=== PATIENT | female | born 1950 | race Caucasian/White ===

== ENCOUNTER 2018-02-28 12:01 | Inpatient (IN) | payer MEDICARE ==
[~2018-02-28] VITALS: Ht 157.5 cm; Wt 106.0 kg
--- NOTE | ~2018-02-28 | HEMODYNAMI ---
PATIENT:MONICO CHAPMAN MEDICAL RECORD: [id number] : [birth year] [facility]D. D.2125 [id number] ADMISSION DATE: 02/28/18 Generatedon:03/03/201810:49 Patient name: MONICO CHAPMAN Patient #: [id number] SSN: : 1950 Date of study: 03/03/2018 Page: Of Hemodynamic Procedure Report Patient Data Patient Demographics Procedure consent was obtained First Name: MONICO Gender: Female Last Name: ADELA : 1950 Middle Initial: CINDY Age: 67 year(s) Patient #: [id number] Race: Unknown Additional ID: [id number] Contact details Address: [address] [place] [address] [address] State: [place] City: [facility] Zip code: [address] Past Medical History Allergies Allergen Reaction Date Comments Reported Other allergy 03/01/2018 codeine Other allergy 03/03/2018 codeine Admission Admission Data Admission Date: 02/28/2018 Admission Time: 12:01 Room #: D.2125 Lab Results Lab Result Date: 03/01/2018 Lab Result Time: 13:00 Biochemistry Name Units Result Min Max BUN mg/dl 23 --(----)-* 7 18 Creatinine mg/dl 0.9 --(-*--)-- 0.6 1.3 CBC Name Units Result Min Max Hematocrit % 40.5 -*(----)-- 42 54 Hemoglobin g/dl 13.3 -*(----)-- 13.5 17.5 Procedure Procedure Types Cath Procedure Diagnostic Procedure Sedation Charges Moderate Sedation up to 15 minutes PCI Procedure Coronary Stent Coronary Stent Initial Procedure Description Procedure Date Procedure Date: 03/03/2018 Procedure Start Time: 10:18 Procedure End Time: 10:47 Procedure Staff Name Function Wilmer Crabtree MD Performing Physician Kenyetta Blanco RT Monitor Delon Quinonez RT Scrub Gordo Gutierrez RN Nurse Jewels Young RN Nurse Hussein Buitrago RT Basket Hand Weaver Procedure Data Cath Procedure Fluoroscopy Diagnostic fluoroscopy Total fluoroscopy Time: 3.8 time: 3.8 min min Diagnostic fluoroscopy Total fluoroscopy dose: dose: 1078 mGy 1078 mGy Contrast Material Contrast Material Type Amount (ml) Isovue 300 93 Entry Location Entry Primary Successful Side Size Upsize Upsize Entry Closure Succes sful Closure Location (Fr) 1 (Fr) 2 (Fr) Remarks Device Remarks Femoral Right 6 Fr Exoseal artery Short Estimated blood loss: 10 ml Procedure Complications No complications Procedure Medications Medication Administration Route Dosage 0.9% NaCl I.V. 100 ml/hr Oxygen etCO2 Nasal cannula 2 l/min Lidocaine 2% added to field 20 Heparin Flush Bag added to field 2 bags (1000units/500ml NS) Versed I.V. 2 mg Fentanyl I.V. 100 mcg Heparin Bolus I.V. 70966 units Versed I.V. 1 mg Fentanyl I.V. 25 mcg Nitroglycerin IC/IA I.C. 100 mcg Hemodynamics Rest HGB: 13.3 (g/dl) Heart Rate: 64 (bpm) Snapshots Pre Cath Intra NCS Post Cath Vital Signs Time Heart Resp SPO2 etCO2 NIBP (mmHg) Rhythm Pain Sedation Rate (ipm) (%) (mmHg) Status Level (bpm) 9:56:12 64 12 94 45.9 186/74(146) NSR 0 (11) 10(A) , No pain 10:01:11 61 19 99 41.4 191/74(131) NSR 0 (11) 10(A) , No pain 10:06:06 57 13 98 41.4 162/69(127) NSR 0 (11) 10(A) , No pain 10:10:57 57 13 97 39.8 159/70(120) NSR 0 (11) 10(A) , No pain 10:15:46 58 11 95 40.6 161/68(117) NSR 0 (11) 10(A) , No pain 10:20:37 58 11 95 39.9 157/66(100) NSR 0 (11) 10(A) , No pain 10:25:13 58 9 97 40.2 142/65(104) NSR 0 (11) 10(A) , No pain 10:29:54 59 10 98 33 141/71(106) NSR 0 (11) 10(A) , No pain 10:34:34 61 11 98 33.4 143/68(102) NSR 0 (11) 10(A) , No pain 10:39:17 62 11 99 33.1 126/58(96) NSR 0 (11) 10(A) , No pain 10:43:54 62 12 99 37.6 133/62(96) NSR 0 (11) 10(A) , No pain 10:48:30 59 20 97 37.6 127/61(95) NSR 0 (11) 10(A) , No pain Medications Time Medication Route Dose Verified Delivered Reason Notes Effectiveness by by 10:01:06 0.9% NaCl I.V. 100 Wilmer Jewels used for ml/hr Bro Young industrial commercial groundskeeper 10:01:13 Oxygen etCO2 2 Wilmer Jewels used for Nasal l/min Bro Young procedure cannula RN 10:01:20 Lidocaine 2% added 20ml Wilmer Wilmer for local to vial Bro Crabtree MD anesthetic field 10:01:27 Heparin Flush added 2 Wilmer Wilmer used for Bag to bags Bro Crabtree MD procedure (1000units/500ml field NS) 10:16:11 Versed I.V. 2 mg Wilmer Jewels for sedation Bro Young RN 10:16:19 Fentanyl I.V. 100 Wilmer Jewels for sedation mcg Bro Young RN 10:23:39 Heparin Bolus I.V. 31201 Wilmer Jewels for units Bro Young anticoagulation RN 10:31:27 Versed I.V. 1 mg Wilmer Jewels for sedation Bro oYung RN 10:31:33 Fentanyl I.V. 25 Wilmer Jewels for sedation mcg Bro Young RN 10:36:35 Nitroglycerin I.C. 100 Wilmer Wilmer for IC/IA mcg Bro Crabtree MD vasodilation Procedure Log Time Note 9:17:42 Signed procedure consent form obtained from patient. 9:17:45 Diagnostic Cath status Elective 9:17:47 Time tracking: Regular hours (M-F 7:00 - 5:00) 9:17:50 Plan of Care:Hemodynamics will remain stable., Cardiac rhythm will remain stable., Comfort level will be maintained., Respiratory function will remain adequate., Patient/ family verbilizes understanding of procedure., Procedure tolerated without complication., Recovers from procedure without complications.. 9:39:47 Hussein Buitrago RT(R) sent for patient. Start room use. 9:39:57 H&P Date Dictated: 02/28/2018 Within 30 days and on chart.. 9:46:23 Patient received from Med II to CCL 1 Alert and oriented. Tansferred to table in Supine position. 9:46:25 Warm blankets applied, and navid hugger turned on for patient comfort. 9:46:27 Correct patient and procedure confirmed by team. 9:46:28 ECG and BP/O2 sat monitors applied to patient. 9:46:30 Pre-procedure instructions explained to patient. 9:46:31 Pre-op teaching completed and patient verbalized understanding. 9:46:32 Family in patients room. 9:46:34 Patient NPO since Midnight. 9:46:48 Patient allergic to Other allergycodeine 9:46:50 Is the patient allergic to Iodine/contrast media? No. 9:46:51 Is patient on blood thinner?Yes 9:47:50 ACC The patient was administered the following blood thiners within the last 24 hours: ACCPlavix 9:47:52 Patient diabetic? Yes. 9:49:00 If diabetic: On Metformin? No 9:49:07 Previous problem with sedation/anesthesia? No ? 9:49:09 Snore? Yes 9:49:10 Sleep apnea? No 9:49:11 Deviated septum? No 9:49:11 Opens mouth fully? Yes 9:49:12 Sticks out tongue? Yes 9:49:17 Airway obstruction? Yes ASTHMA 9:49:21 Dentures? No ? 9:54:22 Vital chart was started 9:55:56 Baseline sample Acquired. 9:56:02 Rhythm: sinus rhythm 9:56:04 Full Disclosure recording started 10:01:06 0.9% NaCl 100 ml/hr I.V. was administered by Jewels Young RN; used for procedure; 10:01:13 Oxygen 2 l/min etCO2 Nasal cannula was administered by Jewels Young RN; used for procedure; 10:01:20 Lidocaine 2% 20ml vial added to field was administered by Wilmer Crabtree MD; for local anesthetic; 10:01:27 Heparin Flush Bag (1000units/500ml NS) 2 bags added to field was administered by Wilmer Crabtree MD; used for procedure; 10:02:48 Pre procedure: right dorsailis pedis pulse 2+ Normal; easily identifiable; not easily obliterated 10:02:51 Patient pain scale 0/10 ?. 10:02:55 IV patent on arrival in right hand with 0.9% NaCl at [facility]. 10:03:55 Right groin area was prepped with chlora-prep and draped in sterile fashion 10:03:56 Alarms reviewed by R. N. 10:03:56 Sharps counted by scrub and verified by R.N. 10:04:27 Use device set CATH PACK 10:04:29 ACIST Syringe (26164) opened to sterile field. 10:04:29 ACIST Hand Control (90995) opened to sterile field. 10:04:30 ACIST Manifold (62647) opened to sterile field. 10:04:30 Medline Cath Pack ([id number]) opened to sterile field. 10:04:30 Bag Decanter (2002S) opened to sterile field. 10:04:31 DIAGNOSTIC WIRE .035 260cm J wire (372492) opened to sterile field. 10:05:01 SHEATH 6FR Burton (PTU066) opened to sterile field. 10:05:02 INFLATOR Merit BasixCompak (SB0209) opened to sterile field. 10:05:02 TUBING High Pressure Extension Tubing (Bro) ([id number]) opened to sterile field. 10:05:03 BMW 300cm Straight Dodge 2 wire (9327193) opened to sterile field. 10:13:19 Zero performed for pressure channel P1 10:15:32 --------ALL STOP TIME OUT------ 10:15:32 Final Timeout: patient, procedure, and site verified with staff and physician. All members of the team are in agreement. 10:15:34 Right groin site verified by team. 10:15:37 Physical assessment completed. ASA score P 2 - A patient with mild systemic disease as per Wilmer Crabtree MD. 10:15:40 Sedation plan: IV Moderate Sedation Medication:Versed, Fentanyl 10:16:11 Versed 2 mg I.V. was administered by Jewels Hector RN; for sedation; 10:16:19 Fentanyl 100 mcg I.V. was administered by Jewels Young RN; for sedation; 10:18:01 Zero performed for pressure channel P1 10:18:18 Lab results completed and on chart. 10:18:21 Procedure started. 10:18:55 Local anesthetic to right femoral artery with Lidocaine 2% by Wilmer Crabtree MD.INITIAL ACCESS ONLY 10:20:24 A 6 Fr Short sheath was inserted into the Right Femoral artery 10:21:12 6 Fr XBLAD 3.5 guide catheter was inserted over the wire 10:23:39 Heparin Bolus 95180 units I.V. was administered by Jewels Young RN; for anticoagulation; 10:24:22 BMW 300 wire advanced. 10:27:38 Wire advanced across lesion. 10:31:27 Versed 1 mg I.V. was administered by Jewels Young RN; for sedation; 10:31:33 Fentanyl 25 mcg I.V. was administered by Jewels Young RN; for sedation; 10:32:13 Place stent Inflation Number: 1 A PAM RX 3.0 x 15 stent ([id number]) was prepped and advanced across the Prox CX. The stent was deployed at 16 CRISTELA for 0:10 (min:sec). 10:32:50 Stent catheter was removed intact over wire. 10:36:35 Nitroglycerin IC/IA 100 mcg I.C. was administered by Wilmer Crabtree MD; for vasodilation; 10:41:26 Place stent Inflation Number: 2 A PAM OTW 3.0 x 22 stent ([id number]) was prepped and advanced across the Prox CX. The stent was deployed at 16 CRISTELA for 0:10 (min:sec). 10:41:49 Stent catheter was removed intact over wire. 10:41:50 Wire removed. 10:41:50 Guide catheter removed. 10:42:30 EXOSEAL 6Fr (EX600) opened to sterile field. 10:43:46 Sheath removed intact; hemostasis achieved with Exoseal to the Right Femoral artery. 10:44:02 Procedure ended.(Physican Out) 10:44:18 Fluoroscopy time 03.80 minutes. :44:22 Flurop Dose total: 1078 10:: Fluoroscopy dose: 1078 mGy 10:: Contrast amount:Isovue 300 93ml. 10:44:28 Sharps counted by scrub and verified by R.N. 10:44:32 Post-op/insertion site Right Femoral artery dressed using a 4 x 4 and Tegaderm. 10:44:36 Post right femoral artery:stable, soft, clean and dry 10:44:44 Post-procedure physical assessment completed. ASA score P 2 - A patient with mild systemic disease as per Wilmer Crabtree MD. 10:44:47 Post procedure rhythm: unchanged. 10:44:49 Estimated blood loss: 10 ml 10:44:50 Post procedure instruction explained to patient.Patient verbalizes understanding. 10:44:50 Patient needs reinforcement of post procedure teaching. 10:45:20 Procedure type changed to Cath procedure, Diagnostic procedure, Sedation Charges, Moderate Sedation up to 15 minutes, PCI procedure, Coronary Stent, Coronary Stent Initial 10:47:13 Procedure and supply charges have been captured, reviewed, submitted and are correct. 10:47:15 Procedure Complication : No complications 10:47:18 Vital chart was stopped 10:47:18 See physician's report for complete and final results. 10:47:25 Report given to PCU. 10:47:28 Patient transfered to PCU with Bed. 10:47:30 Procedure ended. 10:47:30 Full Disclosure recording stopped 10:47:36 End room use (Document Last) Intervention Summary Intervention Notes Time ActionType Lesion and Equipment Used Action# Pressure Duration Attributes 10:32:13 Place stent Prox CX PAM RX 3.0 x 1 16 00:10 15 stent ([id number]) 10:41:26 Place stent Prox CX PAM OTW 3.0 x 2 16 00:10 22 stent ([id number]) Device Usage Item Name Manufacture Quantity Catalog Hospital Part [facility] Lot# / Number Charge Number Stock Stock Serial# Code ACIST Syringe Acist 1 89095 120451 309706 430915 20 (86689) Medical Systems Inc ACIST Hand Acist 1 79831 696507 180838 845289 5 Control Medical (77056) Systems Inc ACIST Manifold Acist 1 84633 938965 719901 805561 5 (91096) Medical Systems Inc Medline Cath Cardinal 1 [id number] 340113 30704 528017 5 Styloola ([id number]) Bag Decanter Microtek 1 2001S 909432 66118 640512 5 () Medical Inc. DIAGNOSTIC [facility] [place] 1 561416 146706 815851 246176 30 WIRE .035 260cm J wire (439071) SHEATH 6FR Terumo 1 HCJ515 823266 664071 233588 40 Burton (WUQ924) INFLATOR Merit Merit 1 XP4527 733485 402202 210674 15 BasixCompak Medical (KI4116) TUBING High Merit 1 [id number] 904890 00776 593496 10 Pressure Medical Extension Tubing (Crabtree) ([id number]) BMW 300cm Chavez 1 2336679 939950 202809 243767 5 Straight Vascular Dodge 2 wire (7435900) PAM RX 3.0 x Medtronic 1 [id number] 425397 0655578 486610 5 [id number] 15 stent ([id number]) PAM OTW 3.0 x Medtronic 1 [id number] 032567 7401701 352416 5 [id number] 22 stent ([id number]) EXOSEAL 6Fr Cardinal 1 EX600 676089 876154 534048 10 (EX600) Health Signature Audit [place] Stage Time Signature Unsigned Intra-Procedure 03/03/2018 Kenyetta Blanco 10:49:02 AM RT(R) Signatures Monitor : Kenyetta Blanco Signature : RT Date : Time : [address] [place] [address]
--- NOTE | ~2018-02-28 | MORECARE ---
CASE MANAGEMENT DISCHARGE SUMMARY PATIENT: MONICO CHAPMAN UNIT: [id number] ADM DATE: 02/28/18 AGE: 67 : [birth year] SEX: F ROOM/BED: D.7835 AUTHOR: REBECCA FRANCIS PHYSICIAN: REFERRING PHYSICIAN: TOLU MELGOZA MD DATE OF SERVICE: 03/07/18 Discharge Plan Patient Name: MONICO CHAPMAN [facility]:[place] : 1950 Planned Disposition: Home Anticipated Discharge Date: 03/04/18 Discharge Date: 03/04/2018 Expected LOS: 4 Initial Reviewer: [id number] Initial Review Date: 02/28/2018 Generated: 03/07/18 9:49 am Comments DCP- Discharge Planning Updated by [email or web address]: Monty Hall on 03/03/18 8:[address] Patient Name: MONICO CHAPMAN Encounter No: [id number] : 1950 Primary Insurance: [facility] [employer] Anticipated DC Date: 03-03-2018 Planned Disposition: Home DISCHARGE PLANNING COMMENTS: * Is the patient Alert and Oriented? Yes 0 * How many steps to enter\exit or inside your home? 4 0 * PCP OK 0 * [facility]acy [facility] * Preadmission Environment Home with Family 0 * ADLs Independent 0 * Equipment Glucometer 0 * Other Equipment NO MEDICAL EQUIPMENT PROVIDER PREFERENCE 0 * List name and contact numbers for known caregivers / representatives who currently or will assist patient after discharge: SAWYER CHAPMAN, SPOUSE, 0 * Verbal permission to speak to the caregivers and representatives has been obtained from the patient. Yes 0 * Community resources currently utilized None 0 * Please name any agencies selected above. NONE 0 * Additional services required to return to the preadmission environment? No 0 * Can the patient safely return to the preadmission environment? Yes 0 * Has this patient been hospitalized within the prior 30 days at any hospital? No 0 CM MET WITH PT AND SPOUSE IN ROOM TO DISCUSS DISCHARGE PLANNING AND NEEDS. MONICO CHAPMAN provided verbal consent to discuss current and ongoing needs with/in the presence of: SPOUSE, SAWYER. PT REPORTS LIVING AT HOME INDEPENDENTLY WITH SPOUSE. PT HAS GLUCOMETER WITH NO MEDICAL EQUIPMENT PROVIDER PREFERENCE. PT HAS NO OUTSIDE SERVICES ASSISTING IN THE HOME. CM DISCUSSED AVAILABILITY OF HOME HEALTH, REHAB SERVICES AND MEDICAL EQUIPMENT. PT DENIES DISCHARGE NEEDS, REPORTS HER SPOUSE WILL PICK HER UP FOR DISCHARGE HOME. IMPORTANT MESSAGE FROM MEDICARE PROVIDED AND EXPLAINED. PT PLANS TO DISCHARGE HOME WITH SPOUSE, DENIES CURRENT NEEDS. CM TO FOLLOW AND ASSIST IF NEEDED. Monty Hall, CASE MANGEMENT DCPIA - Discharge Planning Initial Assessment Updated by [email or web address]: Monty Hall on 03/03/18 9:51 am * Is the patient Alert and Oriented? Yes * How many steps to enter\exit or inside your home? * PCP OK * Pharmacy [address] * Preadmission Environment Home with Family * ADLs Independent * Equipment Glucometer * Other Equipment NO MEDICAL EQUIPMENT PROVIDER PREFERENCE * List name and contact numbers for known caregivers / representatives who currently or will assist patient after discharge: SAWYER CHAPMAN, SPOUSE, * Verbal permission to speak to the caregivers and representatives has been obtained from the patient. Yes * Community resources currently utilized None * Please name any agencies selected above. NONE * Additional services required to return to the preadmission environment? No * Can the patient safely return to the preadmission environment? Yes * Has this patient been hospitalized within the prior 30 days at any hospital? No Coverage Notice Reviewer: [id number] - Monty Hall Notice Issued Date-Time: 03/03/2018 8:35 Notice Type: IM Discharge Notice Notice Delivered To: Family Member Relationship to Patient: Spouse Territory Supervisor Name: SAWYER CHAPMAN Delivery Method: HAND - Hand Delivered Rekha Days: Prior Verbal Notification: Recipient Understood Notice: Yes Recipient Signature: Yes Med Rec Note Co-signed by Attending: Coverage Notice Comment: Last DP export: 03/03/18 8:56 Patient Name: MONICO CHAPMAN Page 00023 at 0849 All edits/amendments must be made on the electronic document DICTATION DATE: 03/07/18848 L TACKER: JERO 03/07/18848 RPT#: [id number] DC DATE:03/04/18 STATUS: DIS IN [facility] [address] [place] [address] END OF REPORT
--- NOTE | ~2018-02-28 | HP ---
PATIENT: MONICO CHAPMAN MEDICAL RECORD: [id number] ACCOUNT: [id number] LOCATION:[address] : [birth year] ADMISSION DATE: 02/28/18 PCP: TIMOTHY EUCEDA MD HISTORY AND PHYSICAL EXAMINATION REASON FOR ADMISSION: Jaw and chest pain. HISTORY OF PRESENT ILLNESS: The patient is a 67-year-old female with metabolic syndrome who states that over the weekend, she developed onset of bilateral jaw pain. Initially thought it might be her teeth, but it was in both mandibular areas and radiated into her chest. It would come and go with activity or at rest. She talked to her dentist and he could not see, but told her to take ibuprofen, which really did not help that much. She has been more fatigued, more short of breath with walking. For this reason, she came to the office today for evaluation. She had a normal cardiac catheterization by Dr. Martin on 01/11/2012 through the right radial approach. She has, however, had poorly controlled diabetes and obesity. She denies any recent dyspepsia. Her A1c runs over 8. She has had increasing edema of her ankles and feet over the weekend, and mild dyspnea on exertion. PAST MEDICAL HISTORY: AODM, poorly controlled; exogenous obesity; hypertension; hyperlipidemia; chest pain, normal cardiac catheterization in 2010; diabetic neuropathy; osteoarthritis; depression; superficial corneal ulcer, resolved; GERD; thyroid cyst, benign. PAST SURGICAL HISTORY: She had a right thyroid lobe cyst removed in 1979, was benign. ALLERGIES: ACTOS, CODEINE, DURAMORPH, NORCO, AND OXYCODONE. FAMILY HISTORY: Father , had hypertension, diabetes, and CVA. Mother at 64 of lung cancer. One sister of diabetes complications. SOCIAL HISTORY: Not a current smoker, does not drink alcohol. MEDICATIONS: Toujeo 6 units subQ q.h.s., glimepiride 2 mg p.o. q.a.m., lisinopril 20 mg p.o. daily, Cartia XT 240 mg p.o. daily, metformin 1000 mg p.o. b.i.d., methocarbamol 5 mg p.o. 3 times a day p.r.n. low back pain, fenofibrate 160 mg p.o. daily, Bumex 1 mg p.o. 2 tabs b.i.d., paroxetine 20 mg a day, atorvastatin 10 mg at bedtime, gabapentin 300 mg p.o. t.i.d., nystatin topical powder applied t.i.d. to groin rash. REVIEW OF SYSTEMS: GENERAL: More fatigued recently. Denies fever, has had some weight gain over the weekend, she thinks due to edema. HEENT: No recent new visual change, sinus congestion, sore throat, headache or loss of vision. RESPIRATORY: Mild exertional dyspnea on exertion. Denies cough or sputum production. Denies PND. CARDIAC: No PND. Mild orthopnea. Increasing edema of her ankles and feet over the weekend. Has had atypical jaw pain bilaterally that radiates into her anterior chest, and will gradually ease off. GASTROINTESTINAL: No nausea, vomiting, change in stools or blood per rectum. GENITOURINARY: Has mild GERD. ENDOCRINE: Denies polyuria, polydipsia, heat or cold intolerance. HISTORY AND PHYSICAL [id number] NEIGHBORS,MONICO WHITE NEUROLOGIC: No history of stroke, TIA, or vascular headaches. INTEGUMENT: No rash or itching. PSYCHIATRIC: Admits to depressed mood, but not severe and she is not suicidal. PHYSICAL EXAMINATION: VITAL SIGNS: The patient is afebrile with temperature of 99 degrees Fahrenheit orally, her weight is 226 pounds, height is 60 inches, BMI is 44.1, blood pressure 122/62 with a heart rate 70 and regular. HEENT: Normocephalic. Eyes are clear. Pupils are reactive. NECK: No bruits or JVD. Her mandible is nontender to touch throughout. No TMJ symptoms noted. No mass in the neck or bruits. CHEST: Distant breath sounds without wheeze or rales. HEART: Regular rate and rhythm without murmur. ABDOMEN: Obese, soft, nontender. No organomegaly noted. GYNECOLOGIC: Deferred. EXTREMITIES: She has 2+ bipedal and pretibial edema to the mid calf bilaterally. SKIN: Shows no lesions. She did step on a tack, she says, in the bottom of her left great plantar distal MTP area, there is a puncture wound without signs of infection. IMAGING: EKG showed sinus rhythm with poor anterior R waves changed from prior. Chest x-ray showed borderline cardiomegaly, no infiltrate. ASSESSMENT: 1. Atypical jaw and chest pain suggesting angina. 2. Metabolic syndrome, poorly controlled. 3. Morbid obesity. 4. GERD. 5. Hypertension. 6. Hyperlipidemia. 7. History of negative cardiac catheterization in 2009. 8. Increased peripheral edema. PLAN: We will admit, place on telemetry. Check echo to evaluate EF. Serial cardiac enzymes. Cardiology consult. TRANSINT:[id number] Voice Confirmation ID: [id number] DOCUMENT ID: [id number] TOLU MELGOZA MD at 0738 CC: [id number] DICTATION DATE: 02/28/18 1328 IT TECHNICAL SUPPORT SPECIALIST: 02/28/18 1429 DIS IN 03/04/18 [id number] [place] [address]
--- NOTE | ~2018-02-28 | HEMODYNAMI ---
PATIENT:MONICO CHAPMAN MEDICAL RECORD: [id number] : 48 [facility] [id number] ADMISSION DATE: 02/28/18 Generatedon:03/01/201815:47 Patient name: MONICO CHAPMAN Patient #: [id number] SSN: : 1950 Date of study: 03/01/2018 Page: Of Hemodynamic Procedure Report Patient Data Patient Demographics Procedure consent was obtained First Name: MONICO Gender: Female Last Name: ADELA : 1950 Middle Initial: CINDY Age: 67 year(s) Patient #: [id number] Race: Unknown Additional ID: [id number] Contact details Address: [address] [place] [address] [address] State: [place] City: [facility] Zip code: [address] Past Medical History Allergies Allergen Reaction Date Comments Reported Other allergy 03/01/2018 codeine Admission Admission Data Admission Date: 02/28/2018 Admission Time: 12:01 Room #: D.2125 Lab Results Lab Result Date: 03/01/2018 Lab Result Time: 13:00 Biochemistry Name Units Result Min Max BUN mg/dl 23 --(----)-* 7 18 Creatinine mg/dl 0.9 --(-*--)-- 0.6 1.3 CBC Name Units Result Min Max Hematocrit % 40.5 -*(----)-- 42 54 Hemoglobin g/dl 13.3 -*(----)-- 13.5 17.5 Procedure Procedure Types Cath Procedure Diagnostic Procedure LHC LHC w/Coronaries Sedation Charges Moderate Sedation up to 30 minutes PCI Procedure Coronary Stent Coronary Stent Initial Procedure Description Procedure Date Procedure Date: 03/01/2018 Procedure Start Time: 15:04 Procedure End Time: 15:44 Procedure Staff Name Function Wilmer Crabtree MD Performing Physician Delon Quinonez RT Monitor Vicky Jaramillo RT Scrub Ty Navarrete RT Freight Traffic Consultant Procedure Data Cath Procedure Fluoroscopy Diagnostic fluoroscopy Total fluoroscopy Time: 8.7 time: 8.7 min min Diagnostic fluoroscopy Total fluoroscopy dose: dose: 699.37 mGy 699.37 mGy Contrast Material Contrast Material Type Amount (ml) Isovue 300 166 Entry Location Entry Primary Successful Side Size Upsize Upsize Entry Closure Nice ccessful Closure Location (Fr) 1 (Fr) 2 (Fr) Remarks Device Remarks Radial Right 6 Fr Mechanical artery Short Compression Diagnostic catheters Device Type Used For End Catheter Placement DIAGNOSTIC Safford 110cm 5 Procedure Fr catheter ([id number]) DIAGNOSTIC Pigtail 5Fr Procedure catheter ([id number]) Procedure Complications No complications Procedure Medications Medication Administration Route Dosage Oxygen etCO2 Nasal cannula 2 l/min Heparin Flush Bag added to field 2 bags (1000units/500ml NS) 0.9% NaCl I.V. 100 ml/hr Radial Cocktail added to field 1 syringe (Verapomil 2mg/Nitro 400mcg/Heparin 1500units) Fentanyl I.V. 50 mcg Versed I.V. 1 mg Radial Cocktail I.A. 1 syringe (Verapomil 2mg/Nitro 400mcg/Heparin 1500units) Fentanyl I.V. 50 mcg Versed I.V. 1 mg Heparin Bolus I.V. 25744 units Nitroglycerin IC/IA I.C. 100 mcg Nitroglycerin IC/IA I.C. 100 mcg Plavix P.O. 600 mg Fentanyl I.V. 50 mcg Fentanyl I.V. 50 mcg Hemodynamics Rest HGB: 13.3 (g/dl) Heart Rate: 58 (bpm) Pressure Samples Time Site Value (mmHg) Purpose Heart Use Rate(bpm) 15:08 LV 134/9,22 Snapshot 54 15:08 AO 109/50(71) Pullback 74 15:08 LV 112/6,13 Pullback 74 15:14 AO 145/59(92) Pullback 63 15:14 LV 141/3,13 Pullback 63 Gradients Valve Time Site 1 Site 2 Mean SEP/DFP Peak To Heart Use (mmHg) (sec/min) Peak Rate (mmHg) (bpm) Aortic 15:08 LV AO 21 9 3 74 112/6,13 109/50(71) Aortic 15:14 LV AO 0 5 0 63 141/3,13 145/59(92) Calculations Valve P-P Mean Valve Index Valve Source Name Gradient Area Flow (cm2) Aortic 0 0 0 0 Snapshots Pre Cath Intra NCS Post Cath Vital Signs Time Heart Resp SPO2 etCO2 NIBP (mmHg) Rhythm Pain Sedation Rate (ipm) (%) (mmHg) Status Level (bpm) 14:52:19 60 16 96 43.9 Measuring NSR 0 (11) 10(A) , No pain 14:53:43 91 16 95 42.4 Time NSR 0 (11) 10(A) Exceeded , No pain 14:58:42 60 16 92 43.2 Measuring NSR 0 (11) 10(A) , No pain 14:58:44 60 17 92 43.1 198/87(142) NSR 0 (11) 10(A) , No pain 15:03:45 66 17 94 40.2 184/81(149) NSR 0 (11) 10(A) , No pain 15:08:26 69 16 91 12.6 131/69(106) NSR 0 (11) 9(A) , No pain 15:12:58 62 16 89 34.2 149/74(128) NSR 0 (11) 9(A) , No pain 15:17:39 62 17 92 23 161/75(128) NSR 0 (11) 9(A) , No pain 15:22:23 69 16 92 43.1 168/76(121) NSR 0 (11) 9(A) , No pain 15:27:04 62 17 92 34.9 154/74(103) NSR 0 (11) 9(A) , No pain 15:31:47 60 17 93 34.9 168/72(125) NSR 0 (11) 9(A) , No pain 15:36:37 63 17 94 37.2 164/72(124) NSR 0 (11) 9(A) , No pain 15:41:24 62 17 96 40.1 178/75(138) NSR 0 (11) 10(A) , No pain Medications Time Medication Route Dose Verified Delivered Reason Not es Effectiveness by by 14:51:36 Oxygen etCO2 2 l/min Wilmer Saenz Per physician Nasal Bro Reno RN cannula 14:51:45 Heparin Flush added 2 bags Wilmer Saenz used for Bag to Bro Reno babysitter (1000units/500ml field NS) 14:51:55 0.9% NaCl I.V. 100 Wilmer Saenz Per physician ml/hr Bro Reno RN 14:52:05 Radial Cocktail added 1 Wilmer Dany used for (Verapomil to syringe Bro Reno RN procedure 2mg/Nitro field 400mcg/Heparin 1500units) 15:06:27 Fentanyl I.V. 50 mcg Wilmer Dany for sedation Bro Reno RN 15:06:51 Versed I.V. 1 mg Wilmer Dany for sedation Bro Reno RN 15:07:36 Radial Cocktail I.A. 1 Iwlmer Wilmer for (Verapomil syringe Bro Crabtree MD vasodilation 2mg/Nitro 400mcg/Heparin 1500units) 15:18:45 Fentanyl I.V. 50 mcg Wilmer Dany for sedation Bro Reno RN 15:18:49 Versed I.V. 1 mg Wilmer Dany for sedation Bro Reno RN 15:19:03 [place]. 72175 Wilmer Dany for units Bro Reno RN anticoagulation 15:24:35 Fentanyl I.V. 50 mcg Wilmer Dany for sedation Bro Reno RN 15:28:58 Nitroglycerin I.C. 100 mcg Wilmer Wilmer for IC/IA Bro Crabtree MD vasodilation 15:33:03 Nitroglycerin I.C. 100 mcg Wilmer Wilmer for IC/IA Bro Crabtree MD vasodilation 15:34:38 Fentanyl I.V. 50 mcg Wilmer Dany for sedation Bro Reno RN 15:41:42 Plavix P.O. 600 mg Wilmer Dany for Bro Reno RN antiplatelet therapy Procedure Log Time Note 14:23:19 Time tracking: Regular hours (M-F 7:00 - 5:00) 14:30:55 Ty Navarrete RT(R) sent for patient. Start room use. 14:42:04 Plan of Care:Hemodynamics will remain stable., Cardiac rhythm will remain stable., Comfort level will be maintained., Respiratory function will remain adequate., Patient/ family verbilizes understanding of procedure., Procedure tolerated without complication., Recovers from procedure without complications.. 14:42:11 Patient received from Med II to CCL 3 Alert and oriented. Tansferred to table in Supine position. 14:42:13 Warm blankets applied, and navid hugger turned on for patient comfort. 14:42:13 Correct patient and procedure confirmed by team. 14:42:15 Signed procedure consent form obtained from patient. 14:42:16 ECG and BP/O2 sat monitors applied to patient. 14:42:18 Pre-procedure instructions explained to patient. 14:42:18 Pre-op teaching completed and patient verbalized understanding. 14:42:34 H&P Date Dictated: 02/28/2018 Within 30 days and on chart.. 14:50:30 Vital chart was started 14:50:34 Rhythm: sinus rhythm 14:51:36 Oxygen 2 l/min etCO2 Nasal cannula was administered by Dany Reno RN; Per physician; 14:51:45 Heparin Flush Bag (1000units/500ml NS) 2 bags added to field was administered by Dany Reno RN; used for procedure; 14:51:55 0.9% NaCl 100 ml/hr I.V. was administered by Dany Reno RN; Per physician; 14:52:05 Radial Cocktail (Verapomil 2mg/Nitro 400mcg/Heparin 1500units) 1 syringe added to field was administered by Dany Reno RN; used for procedure; 14:58:56 Baseline sample Acquired. 14:58:57 Full Disclosure recording started 14:59:00 Family in patients room. 14:59:01 Patient NPO since Midnight. 14:59:08 Patient allergic to Other allergycodeine 14:59:10 Is the patient allergic to Iodine/contrast media? No. 15:01:11 Is patient on blood thinner?Yes 15:01:17 ACC The patient was administered the following blood thiners within the last 24 hours: ACCAspirin, ACCLovenox 15:01:18 Patient diabetic? Yes. 15:01:20 If diabetic: On Metformin? No 15:01:25 Previous problem with sedation/anesthesia? No ? 15:01:27 Snore? Yes 15:01:28 Sleep apnea? No 15:01:29 Deviated septum? No 15:01:30 Opens mouth fully? Yes 15:01:31 Sticks out tongue? Yes 15:01:32 Airway obstruction? Yes asthma 15:01:50 Dentures? No ? 15:01:54 Pre procedure: right dorsailis pedis pulse 2+ Normal; easily identifiable; not easily obliterated 15:01:59 Patient pain scale 0/10 ?. 15:02:04 IV patent on arrival in right hand with 0.9% NaCl at [facility]. 15:04:07 Lab Result : BUN 23 mg/dl 15:04:07 Lab Result : Creatinine 0.9 mg/dl 15:04:07 Lab Result : Hemoglobin 13.3 g/dl 15:04:07 Lab Result : Hematocrit 40.5 % 15:04:09 Lab results completed and on chart. 15:04:12 Right Radial & Right Groin area was prepped with chlora-prep and draped in sterile fashion 15:04:13 Alarms reviewed by R. N. 15:04:13 Sharps counted by scrub and verified by R.N. 15:04:16 Use device set Radial Dx or PCI 15:04:16 ACIST Syringe (55861) opened to sterile field. 15:04:17 Medline Cath Pack ([id number]) opened to sterile field. 15:04:17 Bag Decanter (2002S) opened to sterile field. 15:04:18 ACIST Hand Control (86684) opened to sterile field. 15:04:19 ACIST Manifold (04031) opened to sterile field. 15:04:20 Tegaderm 4 x 4 (1626W) opened to sterile field. 15:04:20 MBrace Wrist Support (005902905) opened to sterile field. 15:04:22 SHEATH 6Fr Prelude Radial ([id number]) opened to sterile field. 15:04:23 DIAGNOSTIC WIRE .035 260cm J wire (013811) opened to sterile field. 15:04:28 Physician arrived 15:04:29 --------ALL STOP TIME OUT------ 15:04:29 Final Timeout: patient, procedure, and site verified with staff and physician. All members of the team are in agreement. 15:04:30 Right Radial & Right Groin site verified by team. 15:04:38 Physical assessment completed. ASA score P 2 - A patient with mild systemic disease as per Wilmer Crabtree MD. 15:04:43 Sedation plan: IV Moderate Sedation Medication:Versed, Fentanyl 15:04:48 Procedure started. 15:04:54 Local anesthetic to right radial artery with Lidocaine 2% by Wilmer Crabtree MD.INITIAL ACCESS ONLY 15:05:46 Zero performed for pressure channel P1 15:05:49 Zero performed for pressure channel P1 15:05:53 Zero performed for pressure channel P1 15:06:27 Fentanyl 50 mcg I.V. was administered by Dany Reno RN; for sedation; 15:06:51 Versed 1 mg I.V. was administered by Dany Reno RN; for sedation; 15:06:57 A 6 Fr Short sheath was inserted into the Right Radial artery 15:07:36 Radial Cocktail (Verapomil 2mg/Nitro 400mcg/Heparin 1500units) 1 syringe I.A. was administered by Wilmer Crabtree MD; for vasodilation; 15:07:38 A DIAGNOSTIC Safford 110cm 5 Fr catheter (464256) was advanced over the wire and used for Procedure. 15:08:06 LV gram done using BOWIE 15:08:08 Injector settings: Ml/sec: 5, Volume: 15, 15:08:10 LV hemodynamics recorded. 15:08:22 EF : 55 % 15:08:52 LCA angiography performed. 15:10:33 RCA angiography performed. 15:12:04 Catheter exchanged over wire. 15:12:17 A DIAGNOSTIC Pigtail 5Fr catheter (246822D) was advanced over the wire and used for Procedure. 15:14:46 LV gram done using BOWEI 15:14:48 Injector settings: Ml/sec: 10, Volume: 20, 15:14:51 Catheter removed. 15:15:19 WHISPER 300cm guide wire ([id number]) opened to sterile field. 15:15:20 TUBING High Pressure Extension Tubing (Bro) ([id number]) opened to sterile field. 15:15:20 INFLATOR Merit BasixCompak (TO7437) opened to sterile field. 15:18:20 GUIDE 6FR XBLAD 3.5 catheter ([id number]) opened to sterile field. 15:18:29 6 Fr xblad 3.5 guide catheter was inserted over the wire 15:18:45 Fentanyl 50 mcg I.V. was administered by Dany Reno RN; for sedation; 15:18:49 Versed 1 mg I.V. was administered by Dany Reno RN; for sedation; 15:19:03 Heparin Bolus 65673 units I.V. was administered by Dany Reno RN; for anticoagulation; 15:20:46 whisper wire advanced. 15:20:47 Wire advanced across lesion. 15:23:01 Inflate balloon Inflation number: 1 A EUPHORA 2.0 x 20 Balloon ([id number]) was prepped and advanced across the Prox LAD, then inflated to 12 CRISTELA for 0:10 (min:sec). 15:24:35 Fentanyl 50 mcg I.V. was administered by Dany Reno RN; for sedation; 15:24:44 Balloon removed over the wire. 15:28:58 Nitroglycerin IC/IA 100 mcg I.C. was administered by Wilmer Crabtree MD; for vasodilation; 15:30:55 Place stent Inflation Number: 2 A PAM OTW 2.75 x 15 stent ([id number]) was prepped and advanced across the Prox LAD. The stent was deployed at 15 CRISTELA for 0:10 (min:sec). 15:33:03 Nitroglycerin IC/IA 100 mcg I.C. was administered by Wilmer Crabtree MD; for vasodilation; 15:34:38 Fentanyl 50 mcg I.V. was administered by Dany Reno RN; for sedation; 15:34:58 BMW 300cm [place] 2 J wire ([id number]) opened to sterile field. 15:35:04 Wire removed. 15:35:08 bmw wire advanced. 15:35:09 Wire advanced across lesion. 15:39:25 Inflation number: 3 The stent balloon was then re-inflated across the Prox LAD to 6 CRISTELA for 0:10 (min:sec). 15:40:05 Wire removed. 15:40:06 Stent catheter was removed intact over wire. 15:40:07 Guide catheter removed. 15:40:11 TR BAND Standard ([id number]) opened to sterile field. 15:40:19 Sheath removed intact; hemostasis achieved with Mechanical Compression to the Right Radial artery. 15:40:20 Procedure ended.(Physican Out) 15:41:42 Plavix 600 mg P.O. was administered by Dany Reno RN; for antiplatelet therapy; 15:41:52 Fluoroscopy time 08.70 minutes. 15:42:02 Fluoroscopy dose: 699.37 mGy 15:42:02 Flurop Dose total: 699.37 15:42:11 Contrast amount:Isovue 300 166ml. 15:42:12 Sharps counted by scrub and verified by R.N. 15:42:15 Insertion/operative site no bleeding no hematoma. 15:42:26 Post right radial artery:stable 15:42:30 Post Procedure Pulses reassessed and unchanged 15:42:35 Post procedure rhythm: sinus rhythm 15:42:36 Post procedure instruction explained to patient.Patient verbalizes understanding. 15:42:39 Procedure and supply charges have been captured, reviewed, submitted and are correct. 15:43:10 Procedure type changed to Cath procedure, Diagnostic procedure, LHC, LHC w/Coronaries, Sedation Charges, Moderate Sedation up to 30 minutes, PCI procedure, Coronary Stent, Coronary Stent Initial 15:43:34 Procedure and supply charges have been captured, reviewed, submitted and are correct. 15:44:30 Procedure Complication : No complications 15:44:32 Vital chart was stopped 15:44:33 See physician's report for complete and final results. 15:44:35 Report given to Pre/Post Procedure Room. 15:44:37 Patient transfered to Pre/Post Procedure Room with Stretcher. 15:44:39 Procedure ended. 15:44:39 Full Disclosure recording stopped 15:45:09 End room use (Document Last) Intervention Summary Intervention Notes Time ActionType Lesion and Equipment Action# Pressure Duration Attributes Used 15:23:01 Inflate Prox LAD EUPHORA 2.0 x 1 12 00:10 balloon 20 Balloon ([id number]) 15:30:55 Place stent Prox LAD PAM OTW 2.75 2 15 00:10 x 15 stent ([id number]) 15:39:25 Reinflate Prox LAD PAM OTW 2.75 3 6 00:10 stent x 15 stent balloon ([id number]) Device Usage Item Name Manufacture Quantity Catalog Number Hospital Part Current Minimal Lot# / Charge Number Stock Stock Serial# Code ACIST Syringe Acist 1 99320 921846 890044 330929 20 () Narrable Inc Medline Cath Cardinal 1 [id number] 418213 98896 608332 5 Yext Health ([id number]) Bag Decanter Microtek 1 728026 75519 289535 5 () Jule Game Inc. ACIST Hand Acist 1 12546 287301 678491 973830 5 Control (22432) Medical Systems Inc ACIST Manifold Acist 1 31506 092616 878260 354855 5 (86281) Medical Systems Inc Tegaderm 4 x 4 3M 1 1626W 407284 349033 024963 5 (1626W) MBrace Wrist Advanced 1 140-0250-00 633761 40761 726450 5 Support Vascular ([id number]) Dynamics SHEATH 6Fr Merit 1 [id number] 776173 678964 831612 5 Prelude Radial Medical ([id number]) DIAGNOSTIC WIRE [place] 1 385370 623349 661535 938693 30 .035 260cm J wire (943610) DIAGNOSTIC Terumo 1 03-3294 214650 124661 603781 5 Safford 110cm 5 Fr catheter (309237) DIAGNOSTIC Cardinal 1 340824D 849873 024501 418615 5 Pigtail 5Fr Health catheter (087841M) WHISPER 300cm Chavez 1 [id number] 925869 206034 652580 5 guide wire Vascular (2477356NO) TUBING High Merit 1 [id number] 210387 25534 879737 10 Pressure Medical Extension Tubing (Crabtree) (DK1366V) INFLATOR Merit Merit 1 DW5445 818933 616269 773691 15 BasixCompak Medical (RD3689) GUIDE 6FR XBLAD Cardinal 1 86564872 701357 703677 065201 10 3.5 catheter Health (81020967) EUPHORA 2.0 x Medtronic 1 [id number] 428349 216890 036117 5 [id number] 20 Balloon (UZY6888W) PAM OTW 2.75 x Medtronic 1 [id number] 351374 5932554 445119 5 [id number] 15 stent ([id number]) BMW 300cm Chavez 1 1152108K 864290 641639 512156 5 [place] 2 J Vascular wire (7274444W) TR BAND Terumo 1 [id number] 453400 235563 225620 40 Standard ([id number]) Signature Audit [place] Stage Time Signature Unsigned Intra-Procedure 03/01/2018 Delon Quinonez 3:47:41 PM RT(R) Signatures Monitor : Delon Quinonez RT Signature : Date : Time : [address] [place] [address]
[2018-02-28] MEDS ORDERED: NEURONTIN 300300 MG PO (12:46)
[2018-02-28] MEDS ORDERED: PRINIVIL20 MG PO (12:46)
[2018-02-28] MEDS ORDERED: BUMEX2 MG PO (12:47)
[2018-02-28] MEDS ORDERED: MOBIC7.5 MG PO (12:48)
[2018-02-28] MEDS ORDERED: PAXIL20 MG PO (12:48)
[2018-02-28] MEDS ORDERED: GLIMEPIRIDE2 MG PO (12:49)
[2018-02-28] MEDS ORDERED: CARTIA XT240 MG PO (12:49)
[2018-02-28] MEDS ORDERED: LIPITOR10 MG PO (12:50)
[2018-02-28] MEDS ORDERED: GLUCOPHAGE1000 MG PO (12:50)
[2018-02-28] MEDS ORDERED: TOUJEO SOL300 UNIT/1 SC (12:52)
[2018-02-28] MEDS ORDERED: BAYER ASPIRIN325 MG PO (13:03)
[2018-02-28 13:08] LABS: BASOPHILS 0.3 % (0-2); EOSINOPHILS 3.4 % (0-7); HEMATOCRIT 40.5 % (36.0-48.0); HEMOGLOBIN 13.3 g/dL (12-16); LYMPHOCYTES 39.1 % (15-50); MCH 29.2 pg (26.0-34.0); MCHC 32.8 g/dL (31.0-37.0); MCV 88.8 fL (80.0-100.0); MEAN PLATELET VOLUME 10.1 fL (7.4-10.4); MONOCYTES 5.4 % (2-11); NEUTROPHILS 51.8 % (40-80); PLATELET COUNT 253 10x3/uL (130-400); RBC 4.56 10x6/uL (4.00-5.40); RDW 14.1 % (11.5-14.5); WBC 6.7 10x3/uL (4.8-10.8)
[2018-02-28 13:49] LABS: CALCIUM 8.8 mg/dL (8.5-10.1); CARBON DIOXIDE 32.2 mmol/L (21.0-32.0); CHLORIDE - SERUM 103 mmol/L (98-107); CKMB 1.7 U/L (0.0-3.6); CREATINE KINASE 82 UL (21-215); CREATININE - SERUM 0.9 mg/dL (0.6-1.3); POTASSIUM - SERUM 3.7 mmol/L (3.5-5.1); PRO BNP 2760 pg/mL (0-125); SODIUM 141 mmol/L (136-145); UREA NITROGEN 23 mg/dL (7-18); eGFR NON AFRICAN AMERICAN 66 mL/min (90-120)
[2018-02-28 13:53] LABS: CALC OSMOLALITY 286 mosm/kg (275-300); GLUCOSE 136 mg/dL (74-106)
[2018-02-28 13:57] LABS: TROPONIN-I 0.827 ng/mL (0.000-0.060)
[2018-02-28 14:46] VITALS: BP 159/75; BMI 40.7
[2018-02-28 15:33] VITALS: Ht 157.5 cm; Wt 106.0 kg
[2018-02-28 15:41] VITALS: BP 186/67
[2018-02-28 20:00] VITALS: BP 163/58
[2018-03-01] VITALS: BP 154/47
[2018-03-01 04:00] VITALS: BP 115/93
[2018-03-01 08:00] VITALS: BP 150/72
[2018-03-01 11:40] VITALS: BP 147/79
[2018-03-01 17:03] LABS: CREATINE KINASE 52 UL (21-215)
[2018-03-01 17:06] LABS: TROPONIN-I 0.794 ng/mL (0.000-0.060)
[2018-03-01 20:21] VITALS: BP 191/81
[2018-03-02] VITALS: BP 197/68
[2018-03-02 04:00] VITALS: BP 207/65
[2018-03-02 11:00] VITALS: BP 188/73
[2018-03-02 11:52] VITALS: BP 162/56
[2018-03-02 18:37] VITALS: BP 152/65
[2018-03-02 19:00] VITALS: BP 207/77
[2018-03-03 00:55] VITALS: BP 159/47
[2018-03-03 07:08] VITALS: BP 150/50
[2018-03-03 08:35] LABS: BASOPHILS 0.3 % (0-2); EOSINOPHILS 4.7 % (0-7); HEMOGLOBIN 12.2 g/dL (12-16); LYMPHOCYTES 37.1 % (15-50); MCH 28.7 pg (26.0-34.0); MCHC 32.1 g/dL (31.0-37.0); MCV 89.4 fL (80.0-100.0); MEAN PLATELET VOLUME 10.3 fL (7.4-10.4); MONOCYTES 8.1 % (2-11); NEUTROPHILS 49.8 % (40-80); PLATELET COUNT 212 10x3/uL (130-400); RBC 4.25 10x6/uL (4.00-5.40); RDW 13.9 % (11.5-14.5); WBC 3.8 10x3/uL (4.8-10.8)
[2018-03-03 08:47] VITALS: BP 181/65
[2018-03-03 08:54] LABS: ANION GAP 7.9 mmol/L (8-16); CALCIUM 7.7 mg/dL (8.5-10.1); CARBON DIOXIDE 31.9 mmol/L (21.0-32.0); CREATININE - SERUM 0.9 mg/dL (0.6-1.3); POTASSIUM - SERUM 3.8 mmol/L (3.5-5.1)
[2018-03-03 16:17] VITALS: BP 150/60
[2018-03-03 22:25] VITALS: BP 175/69
[2018-03-04 02:17] VITALS: BP 148/66
[2018-03-04 05:59] VITALS: BP 142/53
[2018-03-04 08:14] VITALS: BP 168/56
[2018-03-04] MEDS ORDERED: PLAVIX75 MG PO (08:45)
[2018-03-04] MEDS ORDERED: NITROQUICK0.4 MG SL (08:47)
== END 2018-03-04 10:54 | disposition home or self-care (01) | DRG 246 ==
LOC: D.M2 12:01
PROVIDERS: Family Medicine; Internal Medicine Cardiovascular Disease
PROC: 4A023N7 Measurement of Cardiac Sampling and Pressure, Left Heart, Percutaneous Approach (ICD-10-PCS; 2018-03-01)
PROC: B2111ZZ Fluoroscopy of Multiple Coronary Arteries using Low Osmolar Contrast (ICD-10-PCS; 2018-03-01)
PROC: B2151ZZ Fluoroscopy of Left Heart using Low Osmolar Contrast (ICD-10-PCS; 2018-03-01)
PROC: 027034Z Dilation of Coronary Artery, One Artery with Drug-eluting Intraluminal Device, Percutaneous Approach (ICD-10-PCS; principal; 2018-03-01 11:30)
PROC: 027035Z Dilation of Coronary Artery, One Artery with Two Drug-eluting Intraluminal Devices, Percutaneous Approach (ICD-10-PCS; 2018-03-03)
DX: I21.4 Non-ST elevation (NSTEMI) myocardial infarction (principal); I50.21 Acute systolic (congestive) heart failure; Z68.41 Body mass index [BMI] 40.0-44.9, adult; I25.10 Atherosclerotic heart disease of native coronary artery without angina pectoris; Z98.61 Coronary angioplasty status; E11.40 Type 2 diabetes mellitus with diabetic neuropathy, unspecified; M19.90 Unspecified osteoarthritis, unspecified site; F32.9 Major depressive disorder, single episode, unspecified; K21.9 Gastro-esophageal reflux disease without esophagitis; E88.81 Metabolic syndrome and other insulin resistance

== ENCOUNTER 2018-08-08 04:44 | Observation (INO) | payer MEDICARE ==
[~2018-08-08] VITALS: Ht 157.5 cm; Wt 99.3 kg
--- NOTE | ~2018-08-08 | HEMODYNAMI ---
PATIENT:MONICO CHAPMAN MEDICAL RECORD: [id number] : 48 [facility] ADMISSION DATE: 08/08/18 Generatedon:08/08/201813:35 Patient name: MONICO CHAPMAN Patient #: [id number] SSN: : 1950 Date of study: 08/08/2018 Page: Of Hemodynamic Procedure Report Patient Data Patient Demographics Procedure consent was obtained First Name: MONICO Gender: Female Last Name: ADELA : 1950 [facility] Initial: CINDY Age: 67 year(s) Patient #: [id number] Race: Unknown Additional ID: [id number] Contact details Address: [address] [place] [address] [address] State: [place] City: [facility] Zip code: [address] Past Medical History Allergies Allergen Reaction Date Comments Reported Other allergy 03/01/2018 codeine Other allergy 03/03/2018 codeine Codeine 08/08/2018 Admission Admission Data Admission Date: 08/08/2018 Admission Time: 5:58 Room #: D.2118 Height (in.): 61.97 BSA: 1.99 (m2) Height (cm.): 157.4 BMI: 40.08 (kg/m2) Weight (lbs.): 218.92 Weight (kg.): 99.3 Lab Results Lab Result Date: 08/08/2018 Lab Result Time: 0:00 Biochemistry Name Units Result Min Max BUN mg/dl 18 --(---*)-- 7 18 Creatinine mg/dl 0.9 --(-*--)-- 0.6 1.3 CBC Name Units Result Min Max Hematocrit % 38.8 *-(----)-- 42 54 Hemoglobin g/dl 12.5 *-(----)-- 13.5 17.5 Procedure Procedure Types Cath Procedure Diagnostic Procedure [facility] LH w/Coronaries PCI Procedure Coronary Stent Coronary Stent Initial Procedure Description Procedure Date Procedure Date: 08/08/2018 Procedure Start Time: 12:50 Procedure End Time: 13:34 Procedure Staff Name Function Wilmer Crabtree MD Performing Physician Hussein Buitrago RT Monitor Kenyetta Blanco RT Scrub Jewels Young RN Nurse Procedure Data Cath Procedure Fluoroscopy Diagnostic fluoroscopy Total fluoroscopy Time: time: 10.2 min 10.2 min Diagnostic fluoroscopy Total fluoroscopy dose: dose: 1538 mGy 1538 mGy Contrast Material Contrast Material Type Amount (ml) Isovue 300 121 Entry Location Entry Primary Successful Side Size Upsize Upsize Entry Closure Succes sful Closure Location (Fr) 1 (Fr) 2 (Fr) Remarks Device Remarks Femoral Right 5 Fr 6 Fr Exoseal artery Short Estimated blood loss: 10 ml Diagnostic catheters Device Type Used For End Catheter Placement MULTIPACK JL 4.0 5Fr Procedure catheter MULTIPACK 3DRC 5Fr Procedure catheter MULTIPACK Pigtail 5 Fr Procedure catheter Procedure Complications No complications Procedure Medications Medication Administration Route Dosage 0.9% NaCl I.V. 100 ml/hr Oxygen etCO2 Nasal cannula 2 l/min Lidocaine 2% added to field 20 Heparin Flush Bag added to field 2 bags (1000units/500ml NS) Plavix P.O. 75 mg Versed I.V. 2 mg Fentanyl I.V. 50 mcg Versed I.V. 2 mg Fentanyl I.V. 50 mcg Heparin Bolus I.V. 36906 units Nitroglycerin IC/IA I.C. 100 mcg Hemodynamics Rest BSA: 1.99 (m2) HGB: 12.5 (g/dl) O2 Consumption: Estimated: 180.37 (ml/min) O2 Co nsumption indexed: Estimated:90.64 (ml/min/m) Heart Rate: 65 (bpm) Pressure Samples Time Site Value (mmHg) Purpose Heart Use Rate(bpm) 12:52 AO 144/62(89) Snapshot 59 12:57 LV 145/1,9 Snapshot 76 Gradients Valve Time Site Site Mean SEP/DFP Peak To Heart Use 1 2 (mmHg) (sec/min) Peak Rate (mmHg) (bpm) Aortic 13:01 LV AO 60 Snapshots Pre Cath Intra NCS Post Cath Vital Signs Time Heart Resp SPO2 etCO2 NIBP (mmHg) Rhythm Pain Sedation Rate (ipm) (%) (mmHg) Status Level (bpm) 12:39:19 59 13 98 37.9 193/83(151) SB 0 (11) 10(A) , No pain 12:44:04 57 14 97 37.9 155/84(130) SB 0 (11) 10(A) , No pain 12:48:44 58 13 96 37.1 168/80(132) SB 0 (11) 10(A) , No pain 12:53:25 57 19 98 39.4 170/82(136) SB 0 (11) 9(A) , No pain 12:58:12 60 19 96 43.2 170/81(128) NSR 0 (11) 9(A) , No pain 13:02:52 64 16 97 44.7 166/80(132) NSR 0 (11) 9(A) , No pain 13:09:05 59 12 96 40 164/78(134) SB 0 (11) 9(A) , No pain 13:13:46 61 12 98 12.1 160/70(126) NSR 0 (11) 9(A) , No pain 13:18:33 58 13 97 43.2 166/69(125) SB 0 (11) 9(A) , No pain 13:23:17 62 13 97 46.2 173/77(120) NSR 0 (11) 9(A) , No pain 13:28:06 61 15 97 25 169/73(128) NSR 0 (11) 9(A) , No pain 13:32:53 60 14 98 43.9 173/80(142) NSR 0 (11) 10(A) , No pain Medications Time Medication Route Dose Verified Delivered Reason Notes Effectiveness by by 12:31:22 0.9% NaCl I.V. 100 Wilmer Jewels used for ml/hr Bro Young tandem mill operator 12:31:29 Oxygen etCO2 2 Wilmer Jewels used for Nasal l/min Bro Young procedure cannula RN 12:31:34 Lidocaine 2% added 20ml Wilmer Wilmer for local to vial Bro Crabtree MD anesthetic field 12:31:38 Heparin Flush added 2 Wilmer Wilmer used for Bag to bags Bro Crabtree MD procedure (1000units/500ml field NS) 12:31:47 Plavix P.O. 75 mg Wilmer Jewels for Bro Young antiplatelet RN therapy 12:42:51 Versed I.V. 2 mg Wilmer Jewels for sedation Bro Young RN 12:42:57 Fentanyl I.V. 50 Wilmer Jewels for sedation mcg Bro Young RN 12:50:01 Versed I.V. 2 mg Wilmer Jewels for sedation Bro Young RN 12:50:05 Fentanyl I.V. 50 Wilmer Jewels for sedation mcg Bro Young RN 13:07:25 Heparin Bolus I.V. 06115 Wilmer Jewels for verif ied units Bro Young anticoagulation with Dr. LATRICIA Crabtree 13:24:39 Nitroglycerin I.C. 100 Wilmer Wilmer for IC/IA mcg Bro plata Procedure Log Time Note 12:15:04 Hussein Buitrago RT(R) sent for patient. Start room use. 12:15:05 Signed procedure consent form obtained from patient. 12:15:06 Diagnostic Cath status Elective 12:15:07 Time tracking: Regular hours (M-F 7:00 - 5:00) 12:15:10 Plan of Care:Hemodynamics will remain stable., Cardiac rhythm will remain stable., Comfort level will be maintained., Respiratory function will remain adequate., Patient/ family verbilizes understanding of procedure., Procedure tolerated without complication., Recovers from procedure without complications.. 12:15:20 Patient allergic to Codeine 12:15:51 Lab Result : Creatinine 0.9 mg/dl 12:15:51 Lab Result : BUN 18 mg/dl 12:15:51 Lab Result : Hemoglobin 12.5 g/dl 12:15:51 Lab Result : Hematocrit 38.8 % 12:15:59 Patient Weight : 218.92 lbs 12:16:06 Patient Height : 61.97 inches 12:22:15 Patient received from Med II to CCL 1 Alert and oriented. Tansferred to table in Supine position. 12:22:16 Warm blankets applied, and navid hugger turned on for patient comfort. 12:22:17 Correct patient and procedure confirmed by team. 12:22:18 ECG and BP/O2 sat monitors applied to patient. 12:31:09 Vital chart was started 12:31:22 0.9% NaCl 100 ml/hr I.V. was administered by Jewels Young RN; used for procedure; 12:31:29 Oxygen 2 l/min etCO2 Nasal cannula was administered by Jewels Young RN; used for procedure; 12:31:34 Lidocaine 2% 20ml vial added to field was administered by Wilmer Crabtree MD; for local anesthetic; 12:31:38 Heparin Flush Bag (1000units/500ml NS) 2 bags added to field was administered by Wilmer Crabtree MD; used for procedure; 12:31:47 Plavix 75 mg P.O. was administered by Jewels Young RN; for antiplatelet therapy; 12:34:07 Baseline sample Acquired. 12:34:15 Rhythm: sinus rhythm 12:34:19 Full Disclosure recording started 12:34:25 H&P Date Dictated: 08/08/2018 Within 30 days and on chart., H&P Addendum completed by physician on day of procedure. (MUST COMPLETE FOR ALL OUTPATIENTS). 12:34:26 Pre-procedure instructions explained to patient. 12:34:26 Pre-op teaching completed and patient verbalized understanding. 12:34:34 Family in waiting room. 12:34:37 Patient NPO since Midnight. 12:34:39 Is the patient allergic to Iodine/contrast media? No. 12:34:44 Is patient on blood thinner?Yes 12:34:47 ACC The patient was administered the following blood thiners within the last 24 hours: ACCPlavix 12:34:50 Patient diabetic? Yes. 12:34:52 If diabetic: On Metformin? Yes 12:34:53 If on Metformin: Last Dose? 08/07/2018 12:34:56 Previous problem with sedation/anesthesia? No ? 12:34:57 Snore? Yes 12:34:58 Sleep apnea? No 12:34:59 Deviated septum? No 12:35:00 Opens mouth fully? Yes 12:35:00 Sticks out tongue? Yes 12:35:03 Airway obstruction? No ? 12:35:05 Dentures? No ? 12:35:08 Pre procedure: right dorsailis pedis pulse 1+ Palpable, but thready & weak; easily obliterated 12:35:31 UNABLE TO GOT RADIAL DUE TO IV RIGHT WRIST 12:35:35 Patient pain scale 0/10 ?. 12:35:43 IV patent on arrival in right wrist with [facility]. 12:35:45 Lab results completed and on chart. 12:35:48 Right groin area was prepped with chlora-prep and draped in sterile fashion 12:35:50 Alarms reviewed by R. N. 12:35:51 Sharps counted by scrub and verified by R.N. 12:36:04 Use device set Femoral Dx 12:36:06 Tegaderm 4 x 4 (1626W) opened to sterile field. 12:36:07 ACIST Manifold (54787) opened to sterile field. 12:36:08 ACIST Hand Control (71147) opened to sterile field. 12:36:10 ACIST Syringe (48950) opened to sterile field. 12:36:10 Bag Decanter (2002S) opened to sterile field. 12:36:10 Medline Cath Pack ([id number]) opened to sterile field. 12:36:11 DIAGNOSTIC WIRE .035 260cm J wire (917880) opened to sterile field. 12:36:12 DIAGNOSTIC Multipack 5Fr catheter set (IB6125) opened to sterile field. 12:36:14 SHEATH 5FR [place] (TLG319) opened to sterile field. 12:41:36 --------ALL STOP TIME OUT------ 12:41:37 Final Timeout: patient, procedure, and site verified with staff and physician. All members of the team are in agreement. 12:41:38 Right groin site verified by team. 12:41:42 Maximum allowable Isovue 300 dose 300ml. Physician notified. (300ml for normal creatinines. For patients with creatinine of 1.7 or higher multiply weight(kg) x 5 divided by creatinine.) 12:41:51 Fire Safety Assessment: A--An alcohol-based skin anteseptic being used preoperatively., C--Open oxygen or nitrous oxide is being used., D--An ESU, laser, or fiber-optic light is being used. 12:41:54 Physical assessment completed. ASA score P 2 - A patient with mild systemic disease as per Wilmer Crabtree MD. 12:41:57 Sedation plan: IV Moderate Sedation Medication:Versed, Fentanyl 12:42:51 Versed 2 mg I.V. was administered by Jewels Young RN; for sedation; 12::57 Fentanyl 50 mcg I.V. was administered by Jewels Hector RN; for sedation; 12:50:01 Versed 2 mg I.V. was administered by Jewels Young RN; for sedation; 12:50:05 Fentanyl 50 mcg I.V. was administered by Jewels Young RN; for sedation; 12:50:07 Procedure started. 12:50:10 Local anesthetic to right femoral artery with Lidocaine 2% by Wilmer Crabtree MD.INITIAL ACCESS ONLY 12:51:41 A 5 Fr sheath was inserted into the Right Femoral artery 12:52:29 A MULTIPACK JL 4.0 5Fr catheter was advanced over the wire and used for Procedure. 12:53:23 LCA angiography performed. 12:54:50 Catheter exchanged over wire. 12:54:56 A MULTIPACK 3DRC 5Fr catheter was advanced over the wire and used for Procedure. 12:56:17 RCA angiography performed. 12:56:19 Catheter exchanged over wire. 12:56:29 A MULTIPACK Pigtail 5 Fr catheter was advanced over the wire and used for Procedure. 13:00:43 LV angiography performed. 13:00:46 LV gram done using BOWIE 13:00:55 EF : 40 % 13:01:07 LV hemodynamics recorded. 13:01:16 Injector settings: Ml/sec: 10, Volume: 20, 13:01:18 Catheter exchanged over wire. 13:01:21 Use device set CRABTREE PCI 13:01:23 SHEATH 6FR [place] (CFA039) opened to sterile field. 13:01:38 GUIDE 6FR EBU 3.5 catheter ([id number]) opened to sterile field. 13:01:45 TUBING High Pressure Extension Tubing (Bro) ([id number]) opened to sterile field. 13:01:48 INFLATOR Merit BasixCompak (VN1920) opened to sterile field. 13:01:54 BMW 300cm Scuddy 2 J wire ([id number]) opened to sterile field. 13:02:25 Sheath upsized to a 6 Fr Short. 13:02:40 6 Fr EBU 3.5 guide catheter was inserted over the wire 13:06:23 Guide Catheter removed. unable to cannulate vessel. 13:06:39 GUIDE 6FR Q 3.5 catheter ([id number]) opened to sterile field. 13:06:52 6 Fr Q 3.5 guide catheter was inserted over the wire 13:07:25 Heparin Bolus 54368 units I.V. was administered by Jewels Young RN; for anticoagulation; verified with Dr. Crabtree 13:07:47 BMW wire advanced. 13:09:19 Wire advanced across lesion. 13:12:33 Inflate balloon Inflation number: 1 A EUPHORA 2.0 x 30 Balloon ([id number]) was prepped and advanced across the Mid LAD, then inflated to 12 CRISTELA for 0:10 (min:sec). 13:14:49 Balloon removed over the wire. 13:19:19 Place stent Inflation Number: 2 A PAM OTW 2.5 x 26 stent ([id number]) was prepped and advanced across the Mid LAD. The stent was deployed at 10 CRISTELA for 0:10 (min:sec). 13:21:03 Stent catheter was removed intact over wire. 13:22:56 Place stent Inflation Number: 3 A PAM RX 3.0 x 18 stent ([id number]) was prepped and advanced across the Mid LAD. The stent was deployed at 0 CRISTELA for 0:10 (min:sec). 13:23:12 Inflation number: 4 The stent balloon was then re-inflated across the Mid LAD to 12 CRISTELA for 0:10 (min:sec). 13:23:38 Stent catheter was removed intact over wire. 13:24:39 Nitroglycerin IC/IA 100 mcg I.C. was administered by Wilmer Crabtree MD; for vasodilation; 13:25:51 EXOSEAL 6Fr (EX600) opened to sterile field. 13:25:55 Stent catheter was removed intact over wire. 13:25:56 Wire removed. 13:25:57 Guide catheter removed. 13:26:08 Sheath removed intact; hemostasis achieved with Exoseal to the Right Femoral artery. 13:26:42 Procedure ended.(Physican Out) 13:27:06 Fluoroscopy time 10.20 minutes. 13:27:11 Fluoroscopy dose: 1538 mGy 13:27:11 Flurop Dose total: 1538 13:27:16 Contrast amount:Isovue 300 121ml. 13:28:10 Sharps counted by scrub and verified by R.N. 13:28:12 Insertion/operative site no bleeding no hematoma. 13:28:15 Post-op/insertion site Right Femoral artery dressed using a 4 x 4 and Tegaderm. 13:28:16 Post Procedure Pulses reassessed and unchanged 13:28:18 Post-procedure physical assessment completed. ASA score P 2 - A patient with mild systemic disease as per Wilmer Crabtree MD. 13:28:20 Post procedure rhythm: unchanged. 13:28:23 Estimated blood loss: 10 ml 13:33:57 Post procedure instruction explained to patient.Patient verbalizes understanding. 13:33:58 Patient needs reinforcement of post procedure teaching. 13:34:06 Procedure type changed to Cath procedure, Diagnostic procedure, LHC, LHC w/Coronaries, PCI procedure, Coronary Stent, Coronary Stent Initial 13:34:07 Procedure and supply charges have been captured, reviewed, submitted and are correct. 13:34:10 Procedure Complication : No complications 13:34:36 Vital chart was stopped 13:34:37 See physician's report for complete and final results. 13:34:42 Report given to Med II. 13:34:47 Patient transfered to Med II with Bed. 13:34:54 Procedure ended. 13:34:54 Full Disclosure recording stopped 13:35:06 End room use (Document Last) Intervention Summary Intervention Notes Time ActionType Lesion and Equipment Used Action# Pressure Duration Attributes 13:12:33 Inflate Mid LAD EUPHORA 2.0 x 1 12 00:10 balloon 30 Balloon ([id number]) 13:19:19 Place stent Mid LAD PAM OTW 2.5 x 2 10 00:10 26 stent ([id number]) 13:22:56 Place stent Mid LAD PAM RX 3.0 x 3 0 00:10 18 stent ([id number]) 13:23:12 Reinflate Mid LAD PAM RX 3.0 x 4 12 00:10 stent 18 stent balloon ([id number]) Device Usage Item Name Manufacture Quantity Catalog Number Hospital Part Current M inimal Lot# / Charge Number Stock Stock Serial# Code Tegaderm 4 x 4 3M 1 1626W [id number] 114516 741359 5 (1626W) ACIST Manifold Acist 1 57933 825802 241383 190639 5 (18674) Andrew Alliance Systems Inc ACIST Hand Acist 1 89388 638571 685656 239253 5 Control Medical (81314) Systems Inc ACIST Syringe Acist 1 55189 417494 942842 379969 2 0 (44477) Medical Systems Inc Bag Decanter Microtek 1 054057 23242 238249 5 () Medical Inc. Medline Cath Medline 1 [id number] 259221 13032 372969 5 Pack ([id number]) DIAGNOSTIC [place] 1 353450 466260 533102 848087 3 0 WIRE .035 260cm J wire (139176) DIAGNOSTIC Cardinal 1 NW7973 924182 41638 360497 3 0 Multipack 5Fr Health catheter set (NZ5148) SHEATH 5FR Terumo 1 OSP682 744416 303033 523378 5 [place] (WBX511) MULTIPACK JL Cardinal 1 099929 5 4.0 5Fr Health catheter MULTIPACK 3DRC Cardinal 1 366932 5 5Fr catheter Health MULTIPACK Cardinal 1 213280 5 Pigtail 5 Fr Health catheter SHEATH 6FR Terumo 1 NAA225 216840 230136 567903 4 0 [place] (MFD749) GUIDE 6FR EBU Medtronic 1 [id number] 486179 89255 465678 3 3.5 catheter (BD5CFK55) TUBING High Merit 1 [id number] 649037 12068 390509 1 0 Pressure Medical Extension Tubing (Crabtree) (OL7984V) INFLATOR Merit Merit 1 GE2338 664024 714187 478250 1 5 [facility], [facility] Medical (GB2117) BMW 300cm Chavez 1 [id number] 268605 082353 805791 5 Scuddy 2 J Vascular wire (9590301I) GUIDE 6FR Q [place] 1 [id number] 725201 783232 1086834 1 3.5 catheter Scientific ([id number]) EUPHORA 2.0 x Medtronic 1 [id number] 175107 577260 642803 5 [id number] 30 Balloon (TYI1304L) PAM OTW 2.5 x Medtronic 1 [id number] 089070 12224 026369 5 [id number] 26 stent ([id number]) PAM RX 3.0 x Medtronic 1 [id number] 316196 5430877 792003 5 [id number] 18 stent ([id number]) EXOSEAL 6Fr Cardinal 1 EX600 210792 217851 078307 1 0 (EX600) Health Signature Audit [place] Stage Time Signature Unsigned Intra-Procedure 08/08/2018 Hussein Buitrago 1:35:55 PM RT(R) Signatures Monitor : Hussein Buitrago RT Signature : Date : Time : [address] [address]
[~2018-08-08 04:44] MED LIST: BAYER ASPIRIN325 MG PO; BUMEX2 MG PO; CARTIA XT240 MG PO; GLIMEPIRIDE2 MG PO; GLUCOPHAGE1000 MG PO; LIPITOR10 MG PO; MOBIC7.5 MG PO; NEURONTIN 300300 MG PO; NITROQUICK0.4 MG SL; PAXIL20 MG PO; PLAVIX75 MG PO; PRINIVIL20 MG PO; TOUJEO SOL300 UNIT/1 SC
[2018-08-08 05:13] VITALS: BP 166/75
[2018-08-08 05:15] LABS: BASOPHILS 0.3 % (0-2); EOSINOPHILS 5.2 % (0-7); HEMATOCRIT 38.8 % (36.0-48.0); HEMOGLOBIN 12.5 g/dL (12-16); IMMATURE GRANULOCYTES 0.3 % (0-5); LYMPHOCYTES 27.5 % (15-50); MCH 28.5 pg (26.0-34.0); MCHC 32.2 g/dL (31.0-37.0); MCV 88.6 fL (80.0-100.0); MEAN PLATELET VOLUME 10.1 fL (7.4-10.4); NEUTROPHILS 60.7 % (40-80); PLATELET COUNT 295 10x3/uL (130-400); RBC 4.38 10x6/uL (4.00-5.40); RDW 13.8 % (11.5-14.5); WBC 9.7 10x3/uL (4.8-10.8)
[2018-08-08 05:24] LABS: APTT 23.8 SECONDS (22.8-39.4); INR 1.03 (0.85-1.17)
[2018-08-08 05:34] LABS: ALBUMIN 3.2 g/dL (3.4-5.0); ALKALINE PHOSPHATASE 44 U/L (46-116); ALT (SGPT) 19 U/L (10-68); BILIRUBIN - TOTAL 0.43 mg/dL (0.2-1.3); CALC OSMOLALITY 284 mosm/kg (275-300); CALCIUM 8.6 mg/dL (8.5-10.1); CARBON DIOXIDE 30.3 mmol/L (21.0-32.0); CHLORIDE - SERUM 103 mmol/L (98-107); CREATININE - SERUM 0.9 mg/dL (0.6-1.3); GLUCOSE 179 mg/dL (74-106); POTASSIUM - SERUM 3.8 mmol/L (3.5-5.1); PROTEIN - SERUM 7.3 g/dL (6.4-8.2); SODIUM 140 mmol/L (136-145); UREA NITROGEN 18 mg/dL (7-18); eGFR NON AFRICAN AMERICAN 66 mL/min (90-120)
[2018-08-08 05:41] LABS: CKMB 0.7 U/L (0.0-3.6); CREATINE KINASE 47 UL (21-215); MAGNESIUM - SERUM 2.2 mg/dL (1.8-2.4); TROPONIN-I 0.029 ng/mL (0.000-0.060)
[2018-08-08 06:08] VITALS: BP 178/71
--- NOTE | 2018-08-08 07:37 | NUR ---
PATIENT TRANSPORTED TO ROOM 0740AM.
[2018-08-08 08:23] VITALS: BP 176/50; BMI 40.0
--- NOTE | 2018-08-08 08:33 | NUR ---
PT A NEW ADMIT FROM ER. ADMISSION WORKUP COMPLETED. APPLIED TELEMETRY AND PT RUNNING 61BPM SINUS RHYTHM. WILL KEEP PT NPO UNTIL SEEN BY CARDIOLOGY. PT DENIES ANY CURRENT CHEST PAIN JUST C/O HEAVINESS. CL IN REACH. WILL CTM.
[2018-08-08 09:00] VITALS: Ht 157.5 cm; Wt 99.3 kg
--- NOTE | 2018-08-08 09:38 | NUR ---
CARDIOLOGY SEEN AND EVALUATED PT. PT WILL BE GOING FOR A HEART CATH. PT VERBALIZED UNDERSTANDING AND DENIES ANY QUESTIONS OR CONCERNS. CONSENTS OBTAINED AND PLACED IN CHART. PRE-OP MEDICATIONS GIVEN ORDERED. PT CLEANSED HERSELF AND IS PREPPED FOR PROCEDURE. NO FURTHER NEEDS, WILL AWAIT CATH TEAM. AT BEDSIDE. CL IN REACH. WILL CTM.
--- NOTE | 2018-08-08 11:30 | NUR ---
PT STILL WAITING TO GO TO LEGAL SECRETARY RECEPTIONIST. NO CURRENT NEEDS. WILL CTM.
[2018-08-08 12:00] VITALS: BP 109/61
--- NOTE | 2018-08-08 12:30 | NUR ---
PT FINALLY LEAVING FOR PROCEDURE. NO CURRENT NEEDS.
--- NOTE | 2018-08-08 13:45 | NUR ---
PT BACK FROM HEART CATH. A&O AWAKE RESTING QUIETLY IN BED LYING FLAT. PT IS TO REMAIN FLAT X4HRS AND VERBALIZED UNDERSTANDING. TELEMETRY BACK IN PLACE RUNNING 73BPM SINUS RHYTHM. PT HAS A DRSG TO HER R.GROIN CDI, NO S/S OF BLEEDING OR HEMATOMA NOTED. PERIPHERAL PULSES INTACT. VSS AND BEING MONITERED J55DTHL PER POST PROCEDURE PROTOCOL. INITIATED NS VIA R.HAND PIV ORDERED. NO CURRENT NEEDS AT THIS TIME. CL IN REACH, BED IN LOWEST, SIDE RAILS X2. WILL CTM.
--- NOTE | 2018-08-08 14:08 | NUR ---
ROOPA FONTAINE REMAINS CDI. NO S/S OF BLEEDING OR HEMATOMA NOTED. VSS AND STILL BEING MONITERED. AT BEDSIDE ROUNDING ON PT AND STATES PT CAN GO HOME AFTER HER 4HR LAY IS COMPLETED. PT HAPPY TO HEAR THAT. AT BEDSIDE ASSISTING PT WITH EATING. NO CURRENT NEEDS AT THIS TIME. WILL CTM.
--- NOTE | 2018-08-08 15:00 | NUR ---
ROOPA SALTERG REMAINS CDI. NO S/S OF BLEEDING OR HEMATOMA NOTED. VSS AND STILL BEING MONITERED. PT DENIES ANY CURRENT PAIN OR NEEDS. AT BEDSIDE. WILL CTM.
[2018-08-08 16:11] VITALS: BP 184/64
--- NOTE | 2018-08-08 16:47 | NUR ---
PT REMAINS LYING FLAT RESTING QUIETLY IN BED WITH FAMILY AT BEDSIDE. RR NONLABORED ON RA. VSS AND STILL BEING MONITERED. R.GROIN REMAINS CDI NO S/S OF BLEEDING OR HEMATOMA NOTED. CL IN REACH. WILL CTM.
--- NOTE | 2018-08-08 16:58 | MORECARE ---
CASE MANAGEMENT DISCHARGE SUMMARY PATIENT: MONICO CHAPMAN UNIT: [id number] ADM DATE: 08/08/18 AGE: 67 : [birth year] SEX: F ROOM/BED: D.8363 AUTHOR: REBECCA FRANCIS PHYSICIAN: REFERRING PHYSICIAN: TIMOTHY EUCEDA MD DATE OF SERVICE: 08/08/18 Discharge Plan Patient Name: MONICO [facility]APMAN [facility] : 1950 Planned Disposition: Home Anticipated Discharge Date: 08/08/18 Discharge Date: Expected LOS: 1 Initial Reviewer: [email or web address] Initial Review Date: 08/08/2018 Generated: 08/08/18 5:58 pm Patient Name: MONICO CHAPMAN Page 52706 at 1658 All edits/amendments must be made on the electronic document DICTATION DATE: 08/08/181657 WEATHERIZATION DIRECTOR: JERO 08/08/181657 RPT#: [id number] DC DATE: STATUS: ADM IN [facility] [address] [place] [address] END OF REPORT
--- NOTE | 2018-08-08 17:51 | NUR ---
PTS 4HR LAY COMPLETED. R.GROIN REMAINED CDI NO S/S OF BLEEDING OR HEMATOMA NOTED. D/C TELEMETRY AND RETURNED TO [facility]. VITALS REMAIN STABLE. PT IS NOT WANTING TO EAT DINNER HERE AND READY TO BE DISCHARGED. D/C R.FA PIV WITH CATHETER TIP FULLY INTACT. DISCHARGE TEACHING PROVIDED AND PAPERS SIGNED. PT VERBALIZED UNDERSTANDING AND DENIES ANY QUESTIONS OR CONCERNS. PT COLLECTING BELONGINGS AND GETTING DRESSED. WILL CTM.
[2018-08-08 18:31] VITALS: BP 144/80
--- NOTE | 2018-08-09 18:36 | HP ---
PATIENT: MONICO CHAPMAN MEDICAL RECORD: [id number] ACCOUNT: [id number] LOCATION:[address] : [birth year] ADMISSION DATE: 08/08/18 PCP: TIMOTHY EUCEDA MD HISTORY AND PHYSICAL EXAMINATION DATE OF ADMISSION: 08/08/2018 CHIEF COMPLAINT: Chest pain. HISTORY: This is a 67-year-old female with history of coronary artery disease, uncontrolled diabetes, obesity, and hypertension, who was brought in to the ER for dull chest pain. It has been off and on for few months, similar to the chest pain she had prior to February when she had a non-Q-wave VA and had stents placed then. She has had shortness of breath with the chest pain. No fever or chills. No nausea. No diaphoresis. She is admitted for further evaluation. PAST MEDICAL HISTORY: Diabetes, hypertension, coronary artery disease, non-Q-wave VA, obesity, diabetic peripheral neuropathy, osteoarthritis, and depression. PAST SURGICAL HISTORY: Stent to the LAD on 03/01/2018 and 2 stents to the circumflex on 03/03/2018. She had right thyroid cyst removed in 1979. ALLERGIES: REPORTEDLY TO ACTOS, CODEINE, MORPHINE, NORCO, AND OXYCODONE. FAMILY HISTORY: Father is . He had hypertension, diabetes, and stroke. Mother at 64 with lung cancer. Another sister of diabetes complications. SOCIAL HISTORY: No tobacco, alcohol, or drugs. HOME MEDICATIONS: Include gabapentin 300 mg t.i.d., lisinopril 20 mg once a day, Bumex 2 mg twice a day, clopidogrel 75 mg once a day, atorvastatin 10 mg once a day, diltiazem 240 mg once a day, nitroglycerin 0.4 mg sublingually p.r.n., aspirin 81 mg a day, Toujeo insulin 45 units at bedtime, and metformin 1000 mg twice a day. SOCIAL HISTORY: She is retired. She lives with her . REVIEW OF SYSTEMS: GENERAL: No major weight changes. HEENT: No particular sinus or allergy problems. RESPIRATORY: No history of emphysema or asthma. CARDIAC: See above history. GASTROINTESTINAL: She has heartburn. GENITOURINARY: No significant problems there. MUSCULOSKELETAL: Few joint aches and pains. NEUROLOGIC: No seizures or migraines. PSYCHIATRIC: She has some depression. PHYSICAL EXAMINATION: VITAL SIGNS: Today, temperature 97.7, pulse 66, respirations 18, and blood pressure 109/61. GENERAL: She does not appear in acute distress. She is awake and alert. HEENT: Grossly within normal limits. HISTORY AND PHYSICAL [id number] NEIGHBORS,[place] HE[place]: Regular rate and rhythm. LUNGS: Clear. ABDOMEN: Obese and nontender. EXTREMITIES: No edema. LABORATORY DATA: CBC with white count 9700, hemoglobin 12.5, hematocrit 38.8, and platelets are normal. INR 1.03. Basic metabolic panel is totally normal. Glucose is 179 and magnesium is 2.2. Liver enzymes are all normal. Troponin 0.029. ProBNP 2915. IMAGING DATA: Chest x-ray shows low lung volumes. Findings are suggestive of mild perihilar vascular congestion and interstitial edema. ASSESSMENT: 1. Chest pain in a diabetic with known coronary artery disease. 2. Hypertension. PLAN: Serial cardiac enzymes. Cardiology consult. Other tests and procedures as warranted. TRANSINT:[id number] Voice Confirmation ID: [id number] DOCUMENT ID: [id number] TIMOTHY EUCEDA MD at 1836 CC: [id number] DICTATION DATE: 08/08/18 1359 TECHNICAL SALES DIRECTOR: 08/08/18 1433 DIS IN 08/08/18 [facility] [address] [facility] [place] [address]
== END 2018-08-08 18:32 | disposition home or self-care (01) ==
LOC: D.ER 04:44 → D.M2 05:58 → D.M3 05:58 → OBSVTIME 05:58 → D.M2 07:56
PROVIDERS: Family Medicine; ADMIT Family Medicine; ATTEND Family Medicine
DX: I24.9 Acute ischemic heart disease, unspecified (principal); I25.10 Atherosclerotic heart disease of native coronary artery without angina pectoris; E11.9 Type 2 diabetes mellitus without complications; I11.0 Hypertensive heart disease with heart failure; I50.9 Heart failure, unspecified; E66.9 Obesity, unspecified
CPT/HCPCS: 93458; C9600

== ENCOUNTER → 2018-09-14 08:20 | Outpatient (CLI) | payer MEDICARE ==
[2018-08-08 09:00] VITALS: BMI 40.0
--- NOTE | 2018-09-21 10:39 | EC ---
PATIENT:MONICO CHAPMAN DATE OF SERVICE: 09/14/18 SEX: F MEDICAL RECORD: [id number] DATE OF : [birth year] [facility] AGE OF PATIENT: 67 ADMISSION DATE: 09/14/18 REFERRING PHYSICIAN: INTERPRETING PHYSICIAN: ZARIA MARTIN MD ECHOCARDIOGRAM REPORT ECHO CHARGES 4 ECHO COMPLETE Date: 09/14/18 CLINICAL DIAGNOSIS: CARDIOMYOPATHY/ASSESS EF AND VALVES HX OF CAD ECHOCARDIOGRAPHIC MEASUREMENTS (adult normal given) AC root (d.<3.7cm) 2.8 cm LV Septum d (<1.2 cm> 1.4 cm Valve Excursion 1.58 cm LV Septum (systole) 1.5 cm Left Atria (s.<4.0cm> 4.4 cm LVPW d(<1.2cm) 1.5 cm RV (d.<2.3cm) 3.9 cm LVPW (sytole) 1.6 cm LV diastole(<5.6CM) 5.5 cm MV E-F(>70mm/sec) cm LV systole 4.3 cm LVOT Diameter 2.0 cm MV exc.(>10mm) 1.1 cm Est.ejection fraction (50-75%) % DOPPLER: LVIT cm/sec A 94.0 cm/sec E 111 cm/sec LA cm/sec RVSP 61 mmHg LVOT 98 cm/sec AOP1/2T m/s Asc. Ao 141 cm/sec RVOT 100 cm/sec RA cm/sec PA 144 cm/sec AV Gradient Peak 7.93 mmHg AV Mean 3.86 mmHg AV Area 2.4 cm MV Gradient Peak 7.82 mmHg MV Mean 3.13 mmHg MV Area cm COMMENTS: Juvenile Court Liaison: 2 DARIN WILHELM Sap Basis Architect: 1 Dr. Martin TAPE# PACS Pericardial Effusion N DATE OF SERVICE: PROCEDURE: Echocardiogram. FINDINGS: 1. Left ventricular chamber size is within normal limits. Left ventricular systolic function is normal. Overall ejection fraction estimated at 55%. 2. Left atrium is enlarged at 4.4 cm. Right atrium and right ventricular chamber sizes are as well mildly dilated. 3. Valvular structure have normal structure and motion. ECHOCARDIOGRAM REPORT [id number] MONICO CHAPMAN 4. Doppler interrogation reveals [id number] mitral regurgitation, mild to moderate tricuspid regurgitation, no other valvular insufficiency or stenosis. Pulmonary systolic pressure is elevated estimated 61 mmHg. 5. No evidence of pericardial effusion or left ventricular thrombus. TRANSINT:[id number] Voice Confirmation ID: [id number] DOCUMENT ID: [id number] ZARIA MARTIN MD at 1039 CC: [id number] DICTATION DATE: 09/15/18 1208 PSYCHIATRIC ATTENDANT: 09/15/18 1720 DEP CLI 09/14/18 [id number] [place] [address]
== END | disposition home or self-care (01) ==
LOC: D.HCCARDIO 08:20
PROVIDERS: ATTEND Internal Medicine Interventional Cardiology
DX: I25.10 Atherosclerotic heart disease of native coronary artery without angina pectoris (principal)

== ENCOUNTER 2019-02-13 17:04 | Observation (INO) | payer MEDICARE ==
[~2019-02-13] VITALS: Ht 157.5 cm; Wt 92.3 kg
--- NOTE | ~2019-02-13 | HEMODYNAMI ---
PATIENT:MONICO CHAPMAN MEDICAL RECORD: [id number] : 48 [id number] ADMISSION DATE: 02/13/19 Generatedon:02/14/201917:00 Patient name: MONICO CHAPMAN Patient #: [id number] SSN: [id number] : 1950 Date of study: 02/14/2019 Page: Of Hemodynamic Procedure Report Patient Data Patient Demographics Procedure consent was obtained First Name: MONICO Gender: Female Last Name: ADELA : 1950 Middle Initial: CINDY Age: 68 year(s) Patient #: [id number] Race: Unknown SSN: [id number] Additional ID: [id number] Contact details Address: [address] [place] [address] [address] State: [place] City: [facility] Zip code: [address] Past Medical History Allergies Allergen Reaction Date Comments Reported Other allergy 03/01/2018 codeine Other allergy 03/03/2018 codeine Codeine 08/08/2018 Other allergy 02/14/2019 codeine Admission Admission Data Admission Date: 02/13/2019 Admission Time: 18:57 Arrival Date: 02/14/2019 Arrival Time: 0:00 Admit Source: Emergency Insurance Payor: Medicare department [facility] #: [id number] Room #: D.2120 Height (in.): 62 BSA: 1.92 (m2) Height (cm.): 157.48 BMI: 37.1 (kg/m2) Weight (lbs.): 202.83 Weight (kg.): 92 Procedure Procedure Types Cath Procedure Diagnostic Procedure LHC LHC w/Coronaries Procedure Description Procedure Date Procedure Date: 02/14/2019 Procedure Start Time: 16:34 Procedure End Time: 16:56 Procedure Staff Name Function Manjeet Martin MD Performing Physician Delon Quinonez RT Monitor Katy Ovalle RT Scrub Hussein Buitrago RT Director Speech And Hearing Gordo Gutierrez RN Nurse Procedure Data Cath Procedure Fluoroscopy Diagnostic fluoroscopy Total fluoroscopy Time: 8 time: 8 min min Diagnostic fluoroscopy Total fluoroscopy dose: dose: 1225 mGy 1225 mGy Contrast Material Contrast Material Type Amount (ml) Isovue 300 158 Entry Location Entry Primary Successful Side Size Upsize Upsize Entry Closure Nice ccessful Closure Location (Fr) 1 (Fr) 2 (Fr) Remarks Device Remarks Radial Right 6 Fr Manual artery Short Compression Estimated blood loss: 10 ml Diagnostic catheters Device Type Used For End Catheter Placement DIAGNOSTIC [place] 110cm 5 Procedure Fr catheter ([id number]) Procedure Complications No complications Procedure Medications Medication Administration Route Dosage Oxygen etCO2 Nasal cannula 2 l/min Lidocaine 2% added to field 20 Heparin Flush Bag added to field 2 bags (1000units/500ml NS) 0.9% NaCl I.V. 100 ml/hr Versed I.V. 2 mg Fentanyl I.V. 100 mcg Radial Cocktail I.A. 1 syringe (Verapamil 2mg/Nitro 400mcg/Heparin 1500units) Heparin Bolus I.V. 4000 units Plavix P.O. 75 mg Hemodynamics Rest BSA: 1.92 (m2) O2 Consumption: Estimated: 167.48 (ml/min) O2 Consumption indexed : Estimated:87.23 (ml/min/m) Heart Rate: 56 (bpm) Snapshots Pre Cath Intra NCS Post Cath Vital Signs Time Heart Resp SPO2 etCO2 NIBP (mmHg) Rhythm Pain Sedation Rate (ipm) (%) (mmHg) Status Level (bpm) 16:32:06 54 19 92 29.1 169/71(123) NSR 0 (11) 10(A) , No pain 16:38:56 54 11 97 27.6 176/73(139) NSR 0 (11) 10(A) , No pain 16:43:25 54 10 98 29.1 167/69(129) NSR 0 (11) 9(A) , No pain 16:48:14 55 12 99 32.1 166/75(132) NSR 0 (11) 9(A) , No pain 16:53:34 55 11 100 35.1 173/79(136) NSR 0 (11) 10(A) , No pain Medications Time Medication Route Dose Verified Delivered Reason Not es Effectiveness by by 16:17:16 Oxygen etCO2 2 l/min Manjeet Caro used for Nasal Taucelestine Gutierrez cadastral surveyor cannula 16:20:28 Lidocaine 2% added 20ml Manjeet Burroughs for local to vial Veronica Martin MD anesthetic field 16:20:34 Heparin Flush added 2 bags Manjeet Burroughs used for Bag to Veronica Martin MD procedure (1000units/500ml field NS) 16:32:42 0.9% NaCl I.V. 100 Manjeet Caro Per physician ml/hr Veronica Gutierrez RN 16:34:32 Versed I.V. 2 mg Manjeet Caro for sedation Veronica Gutierrez RN 16:34:38 Fentanyl I.V. 100 mcg Manjeet Caro for sedation Veronica Gutierrez RN 16:36:44 Radial Cocktail I.A. 1 Manjeet Burroughs for (Verapamil syringe Veronica Martin MD vasodilation 2mg/Nitro 400mcg/Heparin 1500units) 16:45:31 Heparin Bolus I.V. 4000 Manjeet Caro for will ified units Veronica Gutierrez RN anticoagulation with dr martin 16:54:24 Plavix P.O. 75 mg Manjeet Caro for Veronica Gutierrez RN antiplatelet therapy Procedure Log Time Note 16:00:15 Hussein Buitrago RT(R) sent for patient. Start room use. 16:02:16 Informed consent obtained and on chart 16:03:29 Patient Weight : 202.83 lbs 16:03:32 Patient Height : 62 inches 16:03:35 Admit Source: Emergency department 16:03:40 Insurance Payor : Medicare 16:04:38 Arrival Date: 02/14/2019 12:00:00 AM 16:06:42 Lab Result : Hemoglobin 12.5 g/dl 16:06:42 Lab Result : Hematocrit 38 % 16:06:42 Lab Result : BUN 31 mg/dl 16:06:42 Lab Result : Creatinine 1.3 mg/dl 16:08:42 ACC Patient presents with Unstable Angina CCS Anginal Class 4--Inability to carry out any physical activity w/o angina. Angina may occur at rest. 16:10:05 ACCPatient has been prescribed/administered the following anti-anginal medication within the last 2 weeks: ALISON-Inhibitor 16:10:19 Procedure Status Urgent Heart Cath (IP). 16:10:34 Time tracking: Regular hours (M-F 7:00 - 5:00) 16:10:39 Plan of Care:Hemodynamics will remain stable., Cardiac rhythm will remain stable., Comfort level will be maintained., Respiratory function will remain adequate., Patient/ family verbilizes understanding of procedure., Procedure tolerated without complication., Recovers from procedure without complications.. 16:10:42 Patient received from Pre/Post Procedure Room to CCL 1 Alert and oriented. Tansferred to table in Supine position. 16:10:44 Warm blankets applied, and navid hugger turned on for patient comfort. 16:10:44 Correct patient and procedure confirmed by team. 16:10:44 ECG and BP/O2 sat monitors applied to patient. 16:11:03 H&P Date Dictated: 01/13/2019 Within 30 days and on chart.. 16:11:29 Patient allergic to Other allergycodeine 16:17:12 Is the patient allergic to Iodine/contrast media? No. 16:17:13 Is patient on blood thinner?No 16:17:14 Patient diabetic? Yes. 16:17:15 If diabetic: On Metformin? Yes 16:17:16 Oxygen 2 l/min etCO2 Nasal cannula was administered by Gordo Gutierrez RN; used for procedure; 16:17:44 If on Metformin: Last Dose? 02/13/2019 16:17:49 Previous problem with sedation/anesthesia? No ? 16:18:10 Snore? Yes 16:18:11 Sleep apnea? Yes 16:18:12 Deviated septum? No 16:18:13 Opens mouth fully? Yes 16:18:14 Sticks out tongue? Yes 16:18:15 Airway obstruction? No ? 16:18:19 Dentures? No ? 16:20:28 Lidocaine 2% 20ml vial added to field was administered by Manjeet Martin MD; for local anesthetic; 16:20:34 Heparin Flush Bag (1000units/500ml NS) 2 bags added to field was administered by Manjeet Martin MD; used for procedure; 16:29:59 Patient pain scale 0/10 ?. 16:30:11 IV Right upper arm D/C'd due to infiltration. 16:31:00 IV started by Gordo Gutierrez RN inleft forearm with a 20 gauge IV catheter with 0.9% NaCl at KVO. 16:31:02 Lab results completed and on chart. 16:31:04 Right Radial & Right Groin area was prepped with chlora-prep and draped in sterile fashion 16:31: Alarms reviewed by R. N. 16:31:05 Sharps counted by scrub and verified by R.N. 16:31:07 Use device set Radial Dx or PCI 16:31:08 ACIST Syringe (68693) opened to sterile field. 16:31:08 Medline Cath Pack ([id number]) opened to sterile field. 16:31:09 Bag Decanter (2002S) opened to sterile field. 16:31:09 ACIST Hand Control (85816) opened to sterile field. 16:31:09 ACIST Manifold (82182) opened to sterile field. 16:31:10 Tegaderm 4 x 4 (1626W) opened to sterile field. 16:31:10 MBrace Wrist Support ([id number]) opened to sterile field. 16:31:14 SHEATH 6FR RAIN (9448874) opened to sterile field. 16:31:15 EMERALD Guide Wire (080-344) opened to sterile field. 16:31:19 Physician arrived 16:31:20 --------ALL STOP TIME OUT------ 16:31:20 Final Timeout: patient, procedure, and site verified with staff and physician. All members of the team are in agreement. 16:31:22 Right Radial & Right Groin site verified by team. 16:31:26 Fire Safety Assessment: A--An alcohol-based skin anteseptic being used preoperatively., C--Open oxygen or nitrous oxide is being used., D--An ESU, laser, or fiber-optic light is being used. 16:31:28 Physical assessment completed. ASA score P 2 - A patient with mild systemic disease as per Manjeet Martin MD. 16:31:32 3b) 30-44 Moderately reduced kidney function. 16:31:35 Maximum allowable contrast dose (3.7 X eGFR X 0.75)119 ml. 16:31:38 Sedation plan: IV Moderate Sedation Medication:Versed, Fentanyl 16:31:40 Procedure started. 16:31:40 Full Disclosure recording started 16:32:42 0.9% NaCl 100 ml/hr I.V. was administered by Gordo Gutierrez RN; Per physician; 16:34:10 Local anesthetic to right radial artery with Lidocaine 2% by Manjeet Martin MD.INITIAL ACCESS ONLY 16:34:16 A 6 Fr Short sheath was inserted into the Right Radial artery 16:34:21 Vital chart was started 16:34:28 Rhythm: sinus rhythm 16:34:32 Versed 2 mg I.V. was administered by Gordo Gutierrez RN; for sedation; 16:34:38 Fentanyl 100 mcg I.V. was administered by Gordo Gutierrez RN; for sedation; 16:34:39 A DIAGNOSTIC [place] 110cm 5 Fr catheter ([id number]) was advanced over the wire and used for Procedure. 16:34:49 LV gram done using BOWIE 16:34:52 Injector settings: Ml/sec: 5, Volume: 15, 16:34:53 LV hemodynamics recorded. 16:34:56 EF : 50 % 16:35:04 RCA angiography performed. 16:35:46 Baseline sample Acquired. 16:36:44 Radial Cocktail (Verapamil 2mg/Nitro 400mcg/Heparin 1500units) 1 syringe I.A. was administered by Manjeet Martin MD; for vasodilation; 16:36:49 GUIDE 6FR XBLAD 3.5 catheter ([id number]) opened to sterile field. 16:36:50 CHOICE PT Extra Support 182cm wire (0690543V2) opened to sterile field. 16:36:50 GUIDE 6FR AR 2.0 catheter ([id number]) opened to sterile field. 16:36:51 INFLATOR Merit BasixCompak (TQ8224) opened to sterile field. 16:37:30 Catheter exchanged over wire. 16:37:38 6 Fr xblad 3.5 guide catheter was inserted over the wire 16:38:47 Guide catheter removed. 16:38:56 6 Fr ar 2 guide catheter was inserted over the wire 16:39:09 Golden Eagle Verrata Plus pressure wire (53904V) opened to sterile field. 16:40:00 FFR/IFR wire advanced. 16:44:18 Wire removed. Unable to advance IFR wire past lesion. 16:44:42 choice pt es wire advanced. 16:45:18 Wire advanced across lesion. 16:45:31 Heparin Bolus 4000 units I.V. was administered by Gordo Gutierrez RN; for anticoagulation; verified with dr martin 16:47:06 ACC Pre-intervention JORGE Flow is 3. 16:47:15 Pre PCI Site: [place] dRCA has 95% stenosis. 16:47:26 Place stent Inflation Number: 1 A PAM RX 2.0 x 8 stent ([id number]) was prepped and advanced across the Dist RCA . The stent was deployed at 13 CRISTELA for 0:10 (min:sec) . 16:47:30 ACCDominant side:Co-Dominant 16:48:17 ACC Post-intervention JORGE Flow is 3. 16:48:43 Post PCI Site: [place] dRCA has 0% stenosis. 16:51:33 Stent catheter was removed intact over wire. 16:51:34 Wire removed. 16:51:35 Guide catheter removed. 16:51:38 ZEPHYR REGULAR TR BAND (217701) opened to sterile field. 16:51:45 Sheath removed intact; hemostasis achieved with Manual Compression to the Right Radial artery. 16:51:47 Procedure ended.(Physican Out) 16:52:35 Fluoroscopy time 08.00 minutes. 16:52:40 Fluoroscopy dose: 1225 mGy 16:52:40 Flurop Dose total: 1225 16:52:47 Dose Area Product 35633 mGy/cm. 16:52:51 Contrast amount:Isovue 300 158ml. 16:52:52 Maximum allowable dose exceeded? Yes. 16:52:58 Sharps counted by scrub and verified by R.N. 16:53:42 ACT drawn and resulted at 255 seconds. (normal therapeutic range 180-240 seconds). 16:54:06 Folcroft band inflated with 12cc of air. 16:54:08 Insertion/operative site no bleeding no hematoma. 16:54:14 Post Procedure Pulses reassessed and unchanged 16:54:20 Post-procedure physical assessment completed. ASA score P 2 - A patient with mild systemic disease as per Manjeet Martin MD. 16:54:24 Plavix 75 mg P.O. was administered by Gordo Gutierrez RN; for antiplatelet therapy; 16:54:24 Post procedure rhythm: unchanged. 16:54:26 Estimated blood loss: 10 ml 16:54:27 Post procedure instruction explained to patient.Patient verbalizes understanding. 16:54:27 Patient needs reinforcement of post procedure teaching. 16:56:36 Procedure and supply charges have been captured, reviewed, submitted and are correct. 16:56:39 Procedure Complication : No complications 16:56:40 Vital chart was stopped 16:56:41 See physician's report for complete and final results. 16:56:42 Report given to PCU. 16:56:44 Patient transfered to PCU with Stretcher. 16:56:46 Procedure ended. 16:56:46 Full Disclosure recording stopped 16:56:53 ACC-PCI Only Patient was given prescriptions, or instructed by Manjeet Martin MD to start/continue the following medications upon discharge: Aspirin, Plavix 16:56:55 End room use (Document Last) Intervention Summary Intervention Notes Time ActionType Lesion and Equipment Used Action# Pressure Duration Attributes 16:47:26 Place stent Dist RCA PAM RX 2.0 x 1 13 00:10 8 stent ([id number]) Device Usage Item Name Manufacture Quantity Catalog Number Hospital Part Current Minimal Lot# / Charge Number Stock Stock Serial# Code ACIST Syringe Acist 1 14101 171359 513724 616102 20 (13266) Medical Systems Inc Medline Cath Medline 1 [id number] 408258 29016 447459 5 Pack ([id number]) Bag Decanter Microtek 1 2002S 408065 69992 353718 5 (2002S) Medical Inc. ACIST Hand Acist 1 76764 051742 998289 546518 5 Control Medical (62117) Systems Inc ACIST Manifold Acist 1 28637 227193 936669 351497 5 (61798) Medical Systems Inc Tegaderm 4 x 4 3M 1 1626W 606497 378220 395746 5 (1626W) MBrace Wrist Advanced 1 140-0250-00 280145 56982 093942 5 Support Vascular (251824779) Dynamics SHEATH 6FR Cardinal 1 6070336 434741 5709082 475151 5 RAIN (1983748) Health EMERALD Guide Cardinal 1 502-455 409287 343243 739279 5 Wire (502-455) Health DIAGNOSTIC Terumo 1 40-8823 666977 442296 850455 5 [place] 110cm 5 Fr catheter (687949) GUIDE 6FR Cardinal 1 99153588 577646 328283 665837 10 XBLAD 3.5 Health catheter (43804637) CHOICE PT [place] 1 [id number] 310364 576849 566929 5 Extra Support Scientific 182cm wire ([id number]) GUIDE 6FR AR Medtronic 1 [id number] 725230 16653 586568 1 2.0 catheter (BS6DM74) INFLATOR Merit Merit 1 QT6539 653935 839714 367905 15 [facility] Medical (HN1583) Golden Eagle Golden Eagle 1 10381V 163828 031101328 302371 5 Verrata Plus pressure wire (86745A) PAM RX 2.0 x Medtronic 1 [id number] 492768 2849522 586642 5 [id number] 8 stent ([id number]) ZEPHYR REGULAR Cardinal 1 206716 246749 8506498 906553 5 [facility] [place] 100e (688415) Signature Audit [place] Stage Time Signature Unsigned Intra-Procedure 02/14/2019 Manjeet Martin 4:59:24 PM Intra-Procedure 02/14/2019 Gordo Gutierrez RN 4:59:54 PM Intra-Procedure 02/14/2019 Delon Quinonez 5:00:33 PM RT(R) [facility] [address] [place] [address]
--- NOTE | 2019-02-13 17:28 | NUR ---
STENT PLACEMENT 03/01/18 X1 LAD ARTERY, 03/03/18 X2 CIRCUMFLEX ARTERY 08/08/18 X2 LAD ARTERY
[2019-02-13 17:31] LABS: BASOPHILS 0.3 % (0-2); EOSINOPHILS 2.7 % (0-7); HEMOGLOBIN 12.5 g/dL (12-16); IMMATURE GRANULOCYTES 0.3 % (0-5); LYMPHOCYTES 31.4 % (15-50); MCH 28.3 pg (26.0-34.0); MCHC 32.9 g/dL (31.0-37.0); MEAN PLATELET VOLUME 10.3 fL (7.4-10.4); MONOCYTES 6.3 % (2-11); PLATELET COUNT 298 10x3/uL (130-400); RBC 4.42 10x6/uL (4.00-5.40); RDW 14.3 % (11.5-14.5); WBC 7.6 10x3/uL (4.8-10.8)
[2019-02-13 17:42] LABS: APTT 22.8 SECONDS (22.8-39.4); PROTIME 12.7 SECONDS (11.6-15.0)
[2019-02-13 17:48] LABS: ALBUMIN 3.5 g/dL (3.4-5.0); ALKALINE PHOSPHATASE 44 U/L (46-116); ALT (SGPT) 23 U/L (10-68); BILIRUBIN - TOTAL 0.37 mg/dL (0.2-1.3); CALC OSMOLALITY 295 mosm/kg (275-300); CALCIUM 8.4 mg/dL (8.5-10.1); CARBON DIOXIDE 31.8 mmol/L (21.0-32.0); CHLORIDE - SERUM 100 mmol/L (98-107); CREATININE - SERUM 1.3 mg/dL (0.6-1.3); POTASSIUM - SERUM 3.9 mmol/L (3.5-5.1); PROTEIN - SERUM 6.9 g/dL (6.4-8.2); SODIUM 141 mmol/L (136-145); UREA NITROGEN 31 mg/dL (7-18); eGFR NON AFRICAN AMERICAN 43 mL/min (90-120)
[2019-02-13 17:49] LABS: GLUCOSE 244 mg/dL (74-106)
[2019-02-13 18:00] LABS: CREATINE KINASE 55 UL (21-215); TROPONIN-I < 0.017 ng/mL (0.000-0.060)
[2019-02-13 18:12] VITALS: BP 140/65
--- NOTE | 2019-02-13 19:00 | NUR ---
PT RESTING ON BED. NO S/S OF ACUTE DISTRESS NOTED. PT FAMILY AT BEDSIDE.
--- NOTE | 2019-02-13 20:05 | NUR ---
PT UPDATED ON PLAN OF CARE. PT DENIES NEEDS AT THIS TIME.
[2019-02-13 20:29] VITALS: BP 184/55
[2019-02-13 20:35] LABS: CKMB 0.7 U/L (0.0-3.6); CREATINE KINASE 52 UL (21-215)
[2019-02-13 20:37] LABS: TROPONIN-I < 0.017 ng/mL (0.000-0.060)
[2019-02-14 00:57] VITALS: BP 195/67; BMI 37.2
[2019-02-14 01:42] LABS: CKMB 0.8 U/L (0.0-3.6); CREATINE KINASE 51 UL (21-215); TROPONIN-I < 0.017 ng/mL (0.000-0.060)
[2019-02-14 04:00] VITALS: BP 160/49
[2019-02-14 07:56] LABS: CKMB 0.7 U/L (0.0-3.6); CREATINE KINASE 51 UL (21-215); TROPONIN-I 0.019 ng/mL (0.000-0.060)
--- NOTE | 2019-02-14 08:04 | NUR ---
ASSESSMENT DONE. DENIES NEEDS
[2019-02-14 08:29] VITALS: BP 173/67
--- NOTE | 2019-02-14 10:26 | NUR ---
I have reviewed this patient and I concur with the Shift Assessment completed by the Licensed Practical Nurse today this shift.
[2019-02-14 11:20] VITALS: Ht 157.5 cm; Wt 92.3 kg
[2019-02-14 11:24] VITALS: BP 188/69
--- NOTE | 2019-02-14 13:38 | HP ---
PATIENT: MONICO PAREDES MEDICAL RECORD: [id number] ACCOUNT: [id number] LOCATION:[address] : [birth year] ADMISSION DATE: 02/13/19 PCP: TIMOTHY EUCEDA MD HISTORY AND PHYSICAL EXAMINATION DIAGNOSES: 1. Unstable angina, class IV. 2. Coronary artery disease. 3. Previous multivessel percutaneous transluminal coronary angioplasty stent. 4. Valvular heart disease, mitral regurgitation. 5. Pulmonary hypertension. 6. Diabetes. 7. Systemic hypertension. 8. Hyperlipidemia. HISTORY OF PRESENT ILLNESS: Mrs. Paredes presents with increasing chest pain just like that of her previous angina episodes at rest. She has a class IV anginal symptomatology, continues to have chest pain this morning. Chest pain is a classic anginal pain with dull aching pressure sensation radiating to her neck and jaw. Last cardiac intervention was in July. She had resolution of the pain with that. The pain has returned over the past month and is worsening. She has a history of hypertension, for which she is on lisinopril, diltiazem. Her blood pressure has been running in the 110-120 systolic range at home. Her heart rate has been in the 50s. She has taken multiple sublingual nitros; however, is not on a long-acting nitrate. PHYSICAL EXAMINATION: CONSTITUTIONAL/GENERAL APPEARANCE: Well nourished, well developed, appears stated age. EYES: Lids and conjunctivae noninjected. No discharge. No pallor. ENT: Lips within normal limit. No cyanosis. No pallor. NECK: Carotid arteries, bilateral normal upstroke. No bruits. No thrills. No jugular venous pressure or distention. CERVICAL LYMPH NODES: Nontender. Nonenlarged. THYROID: Not enlarged. No nodules. CARDIOVASCULAR: Precordial exam, nondisplaced. No heaves or pericardial thrills. Rate and rhythm, regular. Heart sounds, normal S1, normal S2. No S3, no gallop, no rub. Systolic murmur, not heard. Diastolic murmur, not heard. RESPIRATORY: Respiratory effort, unlabored. Normal curvature. No thoracic deformity. No chest wall tenderness. Percussion, resonant. Auscultation, clear. No wheezes, no rales, no rhonchi. ABDOMEN: Soft, nondistended, nontender. No abdominal pain, no vomiting and normal appetite. MUSCULOSKELETAL: No joint tenderness, normal gait, normal tone. SKIN: Warm and dry. OVERALL IMPRESSION: Unstable angina, rapidly progressive in a patient with a past history of coronary artery disease, multivessel PTCA stent, diabetes, hypertension, hyperlipidemia. At this time, due to continued pain despite her medical management of the calcium channel sulaiman, ALISON inhibitor, multiple nitro, and nitrates and continued pain, we will proceed with coronary angiography. Further care depends upon the findings of the angiography. TRANSINT:[id number] Voice Confirmation ID: [id number] DOCUMENT ID: [id number] HISTORY AND PHYSICAL [id number] NEIGHBORSMONICO JEFFREY MD at 1338 CC: [id number] DICTATION DATE: 02/14/19830 SATURATOR TENDER: 02/14/19 1040 ADM IN [place] [address] [place] [address]
[2019-02-14 15:50] VITALS: BP 153/71
--- NOTE | 2019-02-14 16:00 | NUR ---
TO HOSPICE NURSE PRACTITIONER PER BED
--- NOTE | 2019-02-14 17:00 | NUR ---
RETURN FROM MANAGEMENT TECH PER BED. TR-BAND TO RT WRIST. AT SIDE.
--- NOTE | 2019-02-14 19:08 | NUR ---
RECIEVED UP IN BED WITH EYES OPEN AND TV ON . ALERT AND ORIENTED X4. UP AD MICHAEL. TR BAND TO RIGHT WRIST. IV TO LEFT FA WITH NS AT 100CC/HR. TELEMETRY IN PLACE. DENIES ANY NEEDS AT THIS TIME.
[2019-02-14 20:00] VITALS: BP 141/78
[2019-02-15] VITALS: BP 151/49
[2019-02-15 04:00] VITALS: BP 126/57
--- NOTE | 2019-02-15 10:36 | NUR ---
IV AND TELEMETRY DCD. DC PLANS GIVEN. UNDERSTANDING VOICED. ESCORTED TO CAR BY W/C.
--- NOTE | 2019-02-16 09:14 | DS ---
PATIENT:MONICO PAREDES :48 MEDICAL RECORD: [id number] DISCHARGE SUMMARY ADMISSION DATE: 02/13/19 DISCHARGE DATE: 02/15/19 DATE OF DIAGNOSES: 02/15/2019 DISCHARGE DIAGNOSES: 1. Unstable angina. 2. Coronary artery disease. 3. PTCA stent right coronary artery this admission. HOSPITAL COURSE: Ms. Paredes presents with unstable anginal symptomatology, underwent cardiac catheterization revealing 95% stenosis of the RCA PDA, underwent successful PTCA stent of this with total resolution of her anginal symptomatology. Discharged home with no change in her medications as she is already on aspirin and Plavix. She will follow up with [facility] month. TRANSINT:[id number] Voice Confirmation ID: [id number] DOCUMENT ID: [id number] ZARIA MOORE MD at 0914 CC: [id number] DICTATION DATE: 02/15/19 0846 AIR HOIST OPERATOR: 02/16/19 0528 DIS IN 02/15/19 [place] [address] [place] [address]
--- NOTE | 2019-02-16 09:14 | OP ---
PATIENT NAME: MONICO CHAPMAN MEDICAL RECORD: [id number] :48 LOCATION:D.M2 D.2120 ADMISSION DATE:02/13/19 SURGEON: ZARIA MOORE MD DATE OF OPERATION: 02/14/2019 PROCEDURES: 1. PTCA stent RCA. 2. Left heart catheterization. 3. Selective coronary angiography. 4. Left ventriculogram. INDICATION: Unstable angina and coronary artery disease. PROCEDURE IN DETAIL: After informed consent was obtained and after a detailed description of the risks, benefits as well as alternative therapies, the patient elected to proceed with angiogram and angioplasty. The right radial area was prepped and draped in normal sterile fashion. Right radial artery was cannulated via modified Seldinger technique with placement of 6-Greenlandic sheath. All catheters exchanged through this sheath. FINDINGS: The left ventriculogram was performed in a standard 30-degree BOWIE view, reveals good cardiac wall motion throughout all segments. Overall ejection fraction estimated 60%. SELECTIVE CORONARY ANGIOGRAPHY: 1. Left main is with no significant angiographic disease. 2. Left anterior descending has previously placed stents, these are widely patent with no significant restenosis. No disease elsewise throughout the LAD or its branches. 3. Left circumflex has moderate irregularities, but no flow-limiting stenosis. 4. The right coronary artery has mild irregularities; however, the PDA has a 95% stenosis at its ostium. PTCA STENT OF THE RIGHT PDA: Stent used was a 2.0 x 8 mm Erwin taken to 17 atmospheres. Result was 0% residual stenosis. OVERALL IMPRESSION: Successful percutaneous transluminal coronary angioplasty stent of the RCA PDA going from 95% initial stenosis to 0% residual. TRANSINT:[id number] Voice Confirmation ID: [id number] DOCUMENT ID: [id number] ZARIA MOORE MD at 0914 CC: [id number] DICTATION DATE: 02/14/191651 CIVIL ENGINEERING DIRECTOR: 02/15/19 0056 DIS IN 02/15/19 [place] [id number] [place] [address]
== END 2019-02-15 10:43 | disposition home or self-care (01) ==
LOC: D.ER 17:04 → D.M2 18:57 → OBSVTIME 18:57 → D.M2 02-15 10:43
PROVIDERS: Family Medicine; ADMIT Internal Medicine Interventional Cardiology; ATTEND Internal Medicine Interventional Cardiology
DX: I25.110 Atherosclerotic heart disease of native coronary artery with unstable angina pectoris (principal); I34.0 Nonrheumatic mitral (valve) insufficiency; I27.20 Pulmonary hypertension, unspecified; E11.9 Type 2 diabetes mellitus without complications; I10 Essential (primary) hypertension; E78.5 Hyperlipidemia, unspecified
CPT/HCPCS: 93458; C9600

== ENCOUNTER 2019-02-27 04:03 | Observation (INO) | payer MEDICARE ==
[~2019-02-27] VITALS: Ht 157.5 cm; Wt 101.5 kg
[2019-02-27] VITALS (7 sets, daily range): BP systolic 135–201; BP diastolic 43–71; Ht 157.5 cm; Wt 101.5 kg
[2019-02-27 04:46] LABS: BASOPHILS 0.3 % (0-2); EOSINOPHILS 5.8 % (0-7); HEMATOCRIT 38.2 % (36.0-48.0); HEMOGLOBIN 12.2 g/dL (12-16); IMMATURE GRANULOCYTES 0.3 % (0-5); LYMPHOCYTES 33.8 % (15-50); MCH 28.4 pg (26.0-34.0); MCHC 31.9 g/dL (31.0-37.0); MCV 88.8 fL (80.0-100.0); MEAN PLATELET VOLUME 10.5 fL (7.4-10.4); MONOCYTES 6.9 % (2-11); NEUTROPHILS 52.9 % (40-80); PLATELET COUNT 290 10x3/uL (130-400); RDW 14.3 % (11.5-14.5); WBC 6.4 10x3/uL (4.8-10.8)
[2019-02-27 05:13] LABS: ALBUMIN 3.4 g/dL (3.4-5.0); ANION GAP 13.2 mmol/L (8-16); BILIRUBIN - TOTAL 0.41 mg/dL (0.2-1.3); CALCIUM 8.3 mg/dL (8.5-10.1); CARBON DIOXIDE 29.5 mmol/L (21.0-32.0); POTASSIUM - SERUM 3.7 mmol/L (3.5-5.1); PROTEIN - SERUM 6.7 g/dL (6.4-8.2)
[2019-02-27 05:18] LABS: MAGNESIUM - SERUM 1.8 mg/dL (1.8-2.4); THYROID STIMULATING HORMONE 0.36 uIU/mL (0.36-3.74); TROPONIN-I 0.021 ng/mL (0.000-0.060)
[2019-02-27 05:20] LABS: INR 0.97 (0.85-1.17); PROTIME 12.4 SECONDS (11.6-15.0)
[2019-02-27 05:40] LABS: APPEARANCE CLEAR (CLEAR); BILIRUBIN NEGATIVE (NEGATIVE); COLOR YELLOW (YELLOW); GLUCOSE NEGATIVE (NEGATIVE); KETONE NEGATIVE (NEGATIVE); NITRITE NEGATIVE (NEGATIVE); PROTEIN NEGATIVE (NEGATIVE); UROBILINOGEN NORMAL (NORMAL)
[2019-02-27 05:41] LABS: BACTERIA MANY /hpf (NEGATIVE); EPITHELIAL CELLS 0-5 /hpf (0-5); RED CELLS - URINE 0-5 /hpf (0-5)
[2019-02-27] MEDS ORDERED: MOBIC7.5 MG PO (05:52)
[2019-02-27] MEDS ORDERED: FENOFIBRATE160 MG PO (05:53)
--- NOTE | 2019-02-27 06:45 | NUR ---
ADMIT TO ROOM 2118 FROM ER. ALERT/ORIENTED. ACCOMPANIED BY . ADMISSION HISTORY AND ASSESSMENT COMPLETED. PLAN OF CARE INITIATED. TELEMETRY 66/SR.
--- NOTE | 2019-02-27 10:29 | NUR ---
TELEMETRY SR. AT BS. CALL LIGHT IN REACH. WILL MONITOR NEEDS.
[2019-02-28 00:30] VITALS: BP 143/43
[2019-02-28 04:30] VITALS: BP 103/64
[2019-02-28 05:15] LABS: BASOPHILS 0.1 % (0-2); EOSINOPHILS 5.5 % (0-7); HEMATOCRIT 36.1 % (36.0-48.0); HEMOGLOBIN 11.1 g/dL (12-16); IMMATURE GRANULOCYTES 0.3 % (0-5); LYMPHOCYTES 23.8 % (15-50); MCH 27.7 pg (26.0-34.0); MCHC 30.7 g/dL (31.0-37.0); MEAN PLATELET VOLUME 10.3 fL (7.4-10.4); NEUTROPHILS 63.3 % (40-80); PLATELET COUNT 245 10x3/uL (130-400); RBC 4.01 10x6/uL (4.00-5.40); RDW 14.4 % (11.5-14.5); WBC 6.9 10x3/uL (4.8-10.8)
[2019-02-28 10:52] VITALS: BP 173/52
--- NOTE | 2019-02-28 12:02 | NUR ---
TELEMETRY SR. CALL LIGHT IN REACH. WILL MONITOR NEEDS.
[2019-02-28] MEDS ORDERED: PROTONIX40 MG PO (13:32)
--- NOTE | 2019-02-28 13:33 | HP ---
PATIENT: MONICO CHAPMAN MEDICAL RECORD: [id number] ACCOUNT: [id number] LOCATION:[address] : [birth year] ADMISSION DATE: 02/27/19 PCP: TIMOTHY EUCEDA MD HISTORY AND PHYSICAL EXAMINATION DATE OF ADMISSION: 02/27/2019 CHIEF COMPLAINT: Chest pain. HISTORY OF PRESENT ILLNESS: This is a 68-year-old female with a history of diabetes, coronary artery disease, hypertension, arthritis, and depression. She was just in the hospital a couple of weeks ago and got coronary stent by Dr. Martin. She comes back in stating that the chest pain she has really was not helped by getting that stent. She continues to have a dull type chest pain, it is chronic in nature. In the ER, her white count was normal. Her basic metabolic panel was normal except glucose was 202. Liver functions were okay. INR 1.97, troponin 0.021. ProBNP 1189. Chest x-ray showed atelectasis versus pneumonia. She does not have signs and symptoms of pneumonia. She may have a urinary tract infection. Of note, the patient has no history of reflux. She is on no proton pump inhibitor or antihistamine for GI problems. She has been on meloxicam and aspirin for a long time for arthritis. PAST MEDICAL AND SURGICAL HISTORY: Again, diabetes, heart disease with stents, hypertension, peripheral neuropathy, arthritis, and depression. PAST SURGICAL HISTORY: Stent to LAD. She has had coronary stents started in February of last year and more stents just a couple of weeks ago. She has had a right thyroid cyst removed in 1979. ALLERGIES: REPORTEDLY TO ACTOS, CODEINE, HYDROCODONE, MORPHINE AND OXYCODONE. HOME MEDICATIONS: Include Plavix 75 mg a day, lisinopril 20 mg twice a day, diltiazem 240 once a day, atorvastatin 10 mg once a day, nitroglycerin sublingual p.r.n. chest pain, fenofibrate 160 mg once a day, gabapentin 300 mg 3 times a day, Paxil 20 mg once a day, aspirin 325 mg once a day, Meloxicam 7.5 mg once a day, Bumex 2 mg twice a day, glimepiride 2 mg daily, insulin Toujeo 45 units at bedtime, metformin 1000 mg twice a day. HABITS: Never smoked. Occasional alcohol, no illicit drugs. SOCIAL HISTORY: She is , retired. FAMILY HISTORY: Father is . He had hypertension, diabetes, and stroke. Mother is at 64. She had lung cancer. A sister of diabetes complications. REVIEW OF SYSTEMS: GENERAL: No major weight changes. HEENT: No particular sinus or allergy problems. RESPIRATORY: No history of emphysema or asthma. CARDIAC: See above history. GASTROINTESTINAL: She states she had colonoscopy years ago and an EGD at the same time, and reportedly had some polyps either in the upper or lower GI tract. She has declined further colonoscopies. She has not got a GI doctor that she sees. HISTORY AND PHYSICAL [id number] NEIGHBORS,[place] GENITOURINARY: Occasional urinary tract infection. MUSCULOSKELETAL: She has arthritic aches and pains. NEUROLOGIC: No migraines or seizures. PSYCHIATRIC: She has depression. PHYSICAL EXAMINATION: VITAL SIGNS: Temperature 97.5, pulse 69, respirations 20, blood pressure 135/43, O2 sat 93%. GENERAL: She is awake and alert. She does not appear to be in acute distress. SKIN: Warm and dry. HEENT: Grossly within normal limits. NECK: Supple, no JVD. HEART: Regular rate and rhythm. LUNGS: Clear. ABDOMEN: Soft, obese, no significant tenderness. EXTREMITIES: No edema. LABORATORY DATA: Urinalysis is yellow and clear with 1+ leukocyte esterase, 5-10 white blood cells, many bacteria. CBC with a white count of 6400, hemoglobin 12.2, hematocrit 38.2, normal differential. INR 0.97. Basic metabolic panel is all okay except BUN is elevated at 34, glucose elevated at 202. Liver functions are normal. Lactic acid is 2.0, proBNP 1189, troponin is 0.021. TSH is 0.36. IMAGING: Chest x-ray suggests atelectasis or pneumonia in the right lower lobe. ASSESSMENT: 1. Chest pain. 2. Diabetes. 3. History of coronary artery disease. 4. Arthritis, on nonsteroidal anti-inflammatories. PLAN: The patient has been seen by cardiology. She just had stents placed a couple of weeks ago. Cardiology feels this is atypical for heart and feels noncardiac causes of chest pain need to be looked at. The patient has been on aspirin and Plavix and meloxicam. She is on no proton pump inhibitor. Denies history of reflux, but I believe with this noncardiac chest pain, this needs to be looked at now. We will consult Dr. Dockery for that and if he says okay to discharge and follow up as an outpatient then we can do that. TRANSINT:[id number] Voice Confirmation ID: [id number] DOCUMENT ID: [id number] TIMOTHY EUCEDA MD at 1333 CC: [id number] DICTATION DATE: 02/27/19 1329 PRESS OPERATOR APPRENTICE: 02/27/19 1529 ADM IN [id number] [place] [address]
[2019-02-28 13:48] VITALS: BP 153/50
--- NOTE | 2019-02-28 14:20 | NUR ---
NO FLU SHOT GIVEN PATEINT STATES SHE GETS IT AT HER PRIMARY CARE DOCTOR, DR EUCEDA.
[2019-02-28] MEDS ORDERED: ISOSORBIDE MONO30 M1 PO (14:37)
--- NOTE | 2019-02-28 14:45 | NUR ---
IV AND TELEMETRY DCD. DC PLANS GIVEN. UNDERSTANDING VOICED. ESCORTED TO CAR BY W/C.
--- NOTE | 2019-03-02 13:30 | EC ---
PATIENT:MONICO CHAPMAN DATE OF SERVICE: 02/27/19 SEX: F MEDICAL RECORD: [id number] DATE OF : [birth year] LOCATION:D.M2 D.211 AGE OF PATIENT: 68 ADMISSION DATE: 02/27/19 REFERRING PHYSICIAN: INTERPRETING PHYSICIAN: ZARIA MARTIN MD ECHOCARDIOGRAM REPORT ECHO CHARGES 4 ECHO COMPLETE Date: 02/27/19 CLINICAL DIAGNOSIS: FATIGUE, S/P CARDIAC STENT, CP ECHOCARDIOGRAPHIC MEASUREMENTS (adult normal given) AC root (d.<3.7cm) 2.6 cm LV Septum d (<1.2 cm> 1.1 cm Valve Excursion 1.7 cm LV Septum (systole) 1.4 cm Left Atria (s.<4.0cm> 3.9 cm LVPW d(<1.2cm) 1.2 cm RV (d.<2.3cm) 3.0 cm LVPW (sytole) 1.4 cm LV diastole(<5.6CM) 5.2 cm MV E-F(>70mm/sec) cm LV systole 3.9 cm LVOT Diameter 2.0 cm MV exc.(>10mm) cm Est.ejection fraction (50-75%) % DOPPLER: LVIT cm/sec A 106 cm/sec E 92 cm/sec LA cm/sec RVSP 31.2 mmHg LVOT 114 cm/sec AOP1/2T m/s Asc. Ao 189 cm/sec RVOT 68 cm/sec RA cm/sec PA 95 cm/sec AV Gradient Peak 14.3 mmHg AV Mean 7.7 mmHg AV Area 1.9 cm MV Gradient Peak 5.5 mmHg MV Mean 2.2 mmHg MV Area cm COMMENTS: Molder Helper: Anum GODFREY Student Success Advisor: 1 Dr. Martin TAPE# PACS Pericardial Effusion N DATE OF SERVICE: FINDINGS: 1. Left ventricular chamber size is within normal limits. Left ventricular systolic function is normal at 50% to 55%. 2. Left atrium, right atrium, and right ventricular chamber sizes are within normal limits. 3. Valvular structures have normal structure and motion. 4. Doppler interrogation reveals trace aortic insufficiency, trace to mild tricuspid regurgitation, no other valvular insufficiency or stenosis. Pulmonary ECHOCARDIOGRAM REPORT [id number] MONICO CHAPMAN systolic pressure is normal estimated at 32 mmHg. 5. No evidence of pericardial effusion or left ventricular thrombus. TRANSINT:[id number] Voice Confirmation ID: [id number] DOCUMENT ID: [id number] ZARIA MARTIN MD at 1330 CC: [id number] DICTATION DATE: 02/28/19 1157 DIGITAL ARTIST: 02/28/19 1242 DIS IN 02/28/19 [facility] [address] [id number]
== END 2019-02-28 14:49 | disposition home or self-care (01) ==
LOC: D.ER 04:03 → OBSVTIME 04:46 → D.M2 04:46
PROVIDERS: Family Medicine; Internal Medicine Gastroenterology; ADMIT Family Medicine; ATTEND Family Medicine
DX: R07.89 Other chest pain (principal); E11.9 Type 2 diabetes mellitus without complications; I25.10 Atherosclerotic heart disease of native coronary artery without angina pectoris; M19.90 Unspecified osteoarthritis, unspecified site; R11.0 Nausea

== ENCOUNTER 2019-08-03 08:00 | Outpatient (CLI) | payer MEDICARE ==
[2019-02-27 13:42] VITALS: BMI 42.3
[~2019-08-03 08:00] MED LIST changes: +FENOFIBRATE160 MG PO; +ISOSORBIDE MONO30 M1 PO; +PROTONIX40 MG PO
== END 2019-08-03 23:59 | disposition home or self-care (01) ==
LOC: D.MAMMO 08:00
PROVIDERS: ATTEND Family Medicine
DX: Z12.31 Encounter for screening mammogram for malignant neoplasm of breast (principal)

== ENCOUNTER 2019-08-09 11:43 | Inpatient (IN) | payer MEDICARE ==
[~2019-08-09] VITALS: Ht 157.5 cm; Wt 108.9 kg
[2019-08-09 12:18] LABS: BASOPHILS 0.1 % (0-2); EOSINOPHILS 5.3 % (0-7); HEMATOCRIT 35.6 % (36.0-48.0); IMMATURE GRANULOCYTES 0.3 % (0-5); LYMPHOCYTES 26.7 % (15-50); MCHC 30.9 g/dL (31.0-37.0); MCV 87.3 fL (80.0-100.0); MEAN PLATELET VOLUME 9.8 fL (7.4-10.4); MONOCYTES 5.6 % (2-11); PLATELET COUNT 285 10x3/uL (130-400); RBC 4.08 10x6/uL (4.00-5.40); RDW 15.3 % (11.5-14.5); WBC 8.7 10x3/uL (4.8-10.8)
[2019-08-09 12:37] LABS: ANION GAP 11.9 mmol/L (8-16); CALCIUM 8.8 mg/dL (8.5-10.1); CARBON DIOXIDE 27.1 mmol/L (21.0-32.0)
[2019-08-09 12:43] LABS: ALBUMIN 3.4 g/dL (3.4-5.0); BILIRUBIN - TOTAL 0.4 mg/dL (0.2-1.3); PROTEIN - SERUM 6.8 g/dL (6.4-8.2)
[2019-08-09 13:00] VITALS: BP 163/61
[2019-08-09 14:00] VITALS: BP 167/55
[2019-08-09 15:00] VITALS: BP 165/55
--- NOTE | 2019-08-09 15:07 | NUR ---
IV AND TELEMETRY DCD. DC PLANS GIVEN. UNDERSTANDING VOICED. ESCORTED TO CAR BY W/C.
[2019-08-09 15:54] VITALS: BP 162/64
--- NOTE | 2019-08-09 16:00 | NUR ---
ARRIVES TO UNIT PER W/C, AT BEDSIDE, SL TO RAC, O2 PER NC AT 3L, DROPLET ISOLATION SET UP
[2019-08-09 17:02] VITALS: BP 181/65
[2019-08-09] MEDS ORDERED: DILTIAZEM 24HR360 M4 PO (19:10)
[2019-08-09 20:00] VITALS: BP 187/53
--- NOTE | 2019-08-09 20:00 | NUR ---
LYING ON RT SIDE IN BED. ALERT AND ORIENTED X4. RESP IRREG, SOB. O2 @ 3LNC. NONPROD COUGH NOTED. REPORTS SORE THROAT. HOB ELEVATED. MORBIDLY OBESE. SALINE LOCK NOTED TO RT AC. 3+ EDEMA NOTED TO BLE. TELEMETRY SHOWS SR WITH RATE OF 74. AMB WITH ASSIST TO BR. GEN WEAKNESS. SR ELEVATED X2. CL IN REACH.
--- NOTE | 2019-08-09 22:03 | NUR ---
PT REPORTS INCREASED SOB AND FEELS LIKE SHE CANT BREATHE. SAO2 96%. NOTIFIED RT. BBS DIMINISHED AND TIGHT. NONPROD COUGH. RESP LABORED WITH USE OF ABD ACCESSORY MUSCLES. NOTIFIED DR. MELGOZA CANDLE WRAPPER. NEW ORDERES NOTED.
--- NOTE | 2019-08-09 22:24 | NUR ---
INSTRUCTED TO GIVE LASIX 0230 DOSE EARLY/NOW PER DR. MELGOZA.
--- NOTE | 2019-08-10 00:30 | NUR ---
FSBS 82. GIVEN SNACK AT THIS TIME. STATES SHE IS FEELING SOME BETTER. HAS ALREADY HAD 750 ML OF UOP IN [place]. NO DISTRESS. CL IN REACH.
--- NOTE | 2019-08-10 03:02 | NUR ---
SITTING UP IN BED DRINKING WATER. NO ACUTE DISTRESS. CL IN REACH.
[2019-08-10 04:00] VITALS: BP 173/59
--- NOTE | 2019-08-10 05:57 | NUR ---
LYING ON LT SIDE IN BED. DROWSY. STATES SHE DIDNT SLEEP MUCH LAST NIGHT. NO DISTRESS. O2 IN USE. CL IN REACH.
[2019-08-10 07:03] LABS: CALC OSMOLALITY 283 mosm/kg (275-300); CALCIUM 8.8 mg/dL (8.5-10.1); CARBON DIOXIDE 30.1 mmol/L (21.0-32.0); CHLORIDE - SERUM 104 mmol/L (98-107); CREATININE - SERUM 1.1 mg/dL (0.6-1.3); SODIUM 140 mmol/L (136-145); TROPONIN-I < 0.017 ng/mL (0.000-0.060); UREA NITROGEN 20 mg/dL (7-18); eGFR NON AFRICAN AMERICAN 52 mL/min (90-120)
[2019-08-10 07:04] LABS: GLUCOSE 138 mg/dL (74-106)
[2019-08-10 07:21] LABS: BASOPHILS 0.1 % (0-2); EOSINOPHILS 3.8 % (0-7); HEMATOCRIT 32.8 % (36.0-48.0); HEMOGLOBIN 9.9 g/dL (12-16); IMMATURE GRANULOCYTES 0.3 % (0-5); MCH 26.5 pg (26.0-34.0); MCHC 30.2 g/dL (31.0-37.0); MCV 87.7 fL (80.0-100.0); MEAN PLATELET VOLUME 10.3 fL (7.4-10.4); MONOCYTES 5.5 % (2-11); NEUTROPHILS 75.3 % (40-80); PLATELET COUNT 276 10x3/uL (130-400); RBC 3.74 10x6/uL (4.00-5.40); RDW 15.7 % (11.5-14.5); WBC 7.6 10x3/uL (4.8-10.8)
--- NOTE | 2019-08-10 08:11 | NUR ---
ALERT AND ORIENTED. LUNGS DIMINISHED BILATERALLY. HEART SOUNDS S1 AND S2 HEARD IN ALL [place]. BOWEL SOUNDS ACTIVE X 4. 3+ PITTING EDEMA TO BILATERAL FEET. IV TO RIGHT AC PATENT WITHOUT REDNESS. DENIES PAIN. DENIES NEEDS. BED LOW. CALL VILLARREAL AND PERSONAL ITEMS IN REACH. WILL CONTINUE TO MONITOR.
--- NOTE | 2019-08-10 08:25 | HP ---
PATIENT: MONICO CHAPMAN MEDICAL RECORD: [id number] ACCOUNT: [id number] LOCATION:[address] : [birth year] ADMISSION DATE: 08/09/19 PCP: TIMOTHY EUCEDA MD HISTORY AND PHYSICAL EXAMINATION DATE OF ADMISSION: 08/09/2019 CHIEF COMPLAINT: Shortness of breath times 3 days and cough, fever, and sore throat that started this morning. HISTORY OF PRESENT ILLNESS: A 68-year-old female who I followed for years, has history of diabetes, hypertension, heart disease, presented to the ER with above complaints. It was recorded that her O2 sat was between 90% and 93% on room air in the ER. CBC showed a normal white blood cell count. Basic metabolic panel was okay except glucose a little high at 192. Liver functions were normal. Lactic acid was 1.2. ProBNP was 2749. Testing for RSV and influenza were negative. Strep test for group A strep was positive. Chest x-ray with mild pulmonary edema, likely CHF. She is admitted with acute systolic congestive heart failure and strep throat. PAST MEDICAL AND SURGICAL HISTORY: Diabetes, hypertension, coronary artery disease, osteoarthritis, depression, and obesity. PAST SURGICAL HISTORY: Coronary stents. She had a right thyroid cyst removed in 1979. ALLERGIES: REPORTEDLY TO ACTOS, CODEINE, HYDROCODONE, MORPHINE, AND OXYCODONE. HABITS: Never smoked. Occasional alcohol, no illicit drug use. HOME MEDICATIONS: Cartia 360 mg once a day, metformin 1000 mg twice a day, fenofibrate 160 mg once a day, lisinopril 20 mg 2 a day, isosorbide mononitrate 30 mg once a day, doxazosin 2 mg twice a day, gabapentin 300 mg 3 times a day, atorvastatin 10 mg once a day, Plavix 75 mg once a day, Paxil 20 mg once a day, glimepiride 2 mg once a day, Toujeo insulin 50 units once a day, and Meloxicam 7.5 once a day. SOCIAL HISTORY: , retired. FAMILY HISTORY: Father is . He had hypertension, diabetes and a stroke. Mother is . She at 64 of lung cancer. A sister due to complications of diabetes. REVIEW OF SYSTEMS: GENERAL: No major weight changes. HEENT: No particular sinus or allergy problems. RESPIRATORY: No known diagnosis of asthma or COPD. CARDIAC: Heart has a history of coronary artery disease with stents. GASTROINTESTINAL: She has heartburn/reflux. GENITOURINARY: No significant problems there. MUSCULOSKELETAL: Diffuse osteoarthritis. NEUROLOGIC: No migraines. No seizures. PSYCHIATRIC: Has depression. PHYSICAL EXAMINATION: HISTORY AND PHYSICAL [id number] NEIGHBORS,[place] VITAL SIGNS: Temperature 96.6, pulse 61, respirations 17, blood pressure 181/65, and O2 sat 97%. GENERAL: She is awake and alert. She does not appear in acute distress. HEENT: Nose without drainage. Oropharynx, there is some mild erythema posteriorly. No exudates are seen on the tonsils. NECK: No mass. There is some tenderness to palpation. No JVD or bruit. HEART: Regular rate and rhythm. No murmur. LUNGS: Clear. ABDOMEN: Obese, soft, nontender. EXTREMITIES: 2+ edema. NEUROLOGIC: Grossly intact. IMAGING: Chest x-ray was read as mild pulmonary edema, likely CHF. ASSESSMENT: 1. Acute systolic congestive heart failure. 2. Streptococcal pharyngitis. PLAN: Diurese. She was given Bicillin L-A 1.2 million units IM in the Emergency Department at 14:15 today and an echocardiogram has been ordered. Other tests and procedures as warranted. TRANSINT:[id number] Voice Confirmation ID: [id number] DOCUMENT ID: [id number] TIMOTHY EUCEDA MD at 0825 CC: [id number] DICTATION DATE: 08/09/191927 BASEBALL SEWER HAND: 08/09/19 2314 ADM IN [id number] [place] [address]
[2019-08-10 09:06] VITALS: BP 197/66
[2019-08-10 12:49] VITALS: BP 183/74
[2019-08-10 13:24] VITALS: Ht 157.5 cm; Wt 108.9 kg
--- NOTE | 2019-08-10 13:27 | NUR ---
PATIENT BP 183/74. CALLED AND LEFT VOICEMAIL FOR DR EUCEDA'S NURSE TO CALL BACK.
--- NOTE | 2019-08-10 13:57 | NUR ---
SPOKE WITH DORIAN, DR TEJEDA'S NURSE, WHO STATES WILL TALK WITH MD ABOUT PATIENT BP AND CALL BACK.
--- NOTE | 2019-08-10 15:00 | NUR ---
PATIENT REQUESTING TYLENOL. SPOKE WITH DORIAN, DR TEJEDA'S NURSE, WHO STATES WILL TALK TO DR TEJEDA AND CALL BACK.
[2019-08-10 16:16] VITALS: BP 124/61
--- NOTE | 2019-08-10 17:27 | NUR ---
RESTING IN BED. DENIES NEEDS. WILL CONTINUE TO MONITOR.
[2019-08-10 20:00] VITALS: BP 161/62
[2019-08-11 04:00] VITALS: BP 172/74
[2019-08-11 05:56] LABS: BASOPHILS 0.3 % (0-2); EOSINOPHILS 8.9 % (0-7); HEMATOCRIT 32.8 % (36.0-48.0); HEMOGLOBIN 9.8 g/dL (12-16); IMMATURE GRANULOCYTES 0.3 % (0-5); LYMPHOCYTES 20.2 % (15-50); MCH 26.6 pg (26.0-34.0); MCHC 29.9 g/dL (31.0-37.0); MCV 88.9 fL (80.0-100.0); MEAN PLATELET VOLUME 10.2 fL (7.4-10.4); MONOCYTES 6.4 % (2-11); NEUTROPHILS 63.9 % (40-80); PLATELET COUNT 254 10x3/uL (130-400); RBC 3.69 10x6/uL (4.00-5.40); RDW 15.9 % (11.5-14.5); WBC 7.2 10x3/uL (4.8-10.8)
[2019-08-11 06:20] LABS: ANION GAP 10.8 mmol/L (8-16); CALCIUM 8.5 mg/dL (8.5-10.1); CARBON DIOXIDE 31.8 mmol/L (21.0-32.0); CREATININE - SERUM 1.3 mg/dL (0.6-1.3); POTASSIUM - SERUM 4.6 mmol/L (3.5-5.1)
[2019-08-11 08:24] VITALS: BP 150/65
--- NOTE | 2019-08-11 09:00 | NUR ---
ASSESSMENT PER FLOW SHEET. PATIENT IS WITHOUT DISTRESS.CALL LIGHT IN REACH.
[2019-08-11 12:10] VITALS: BP 171/57
--- NOTE | 2019-08-11 13:20 | MORECARE ---
CASE MANAGEMENT DISCHARGE SUMMARY PATIENT: MONICO PAREDES UNIT: [id number] ADM DATE: 08/09/19 AGE: 68 : 49 SEX: F ROOM/BED: D.[facility] AUTHOR: REBECCA FRANCIS PHYSICIAN: REFERRING PHYSICIAN: TIMOTHY EUCEDA MD DATE OF SERVICE: 08/11/19 Discharge Plan Patient Name: MONICO PAREDES [facility] [facility] 1950 Planned Disposition: Home Anticipated Discharge Date: Discharge Date: Expected LOS: Initial Reviewer: [email or web address] Initial Review Date: 08/11/2019 Generated: 08/11/19 2:20 pm DCPIA - Discharge Planning Initial Assessment Updated by [email or web address]: Gilda Beasley on 08/11/19 1:17 pm * Is the patient Alert and Oriented? Yes * How many steps to enter\exit or inside your home? 4/0 * PCP Dr. Euceda * Pharmacy [facility] * Preadmission Environment Home with Family * ADLs Independent * Equipment Cane Glucometer * List name and contact numbers for known caregivers / representatives who currently or will assist patient after discharge: Dakota Paredes - spouse - [phone] * Verbal permission to speak to the caregivers and representatives has been obtained from the patient. Yes * Community resources currently utilized None * Additional services required to return to the preadmission environment? No * Can the patient safely return to the preadmission environment? Yes * Has this patient been hospitalized within the prior 30 days at any hospital? No Patient Name: MONICO PAREDES Page [id number] at 1320 All edits/amendments must be made on the electronic document DICTATION DATE: 08/11/19 1320 TICKET ATTENDANT: JERO 08/11/19 1320 RPT#: [id number] DC DATE: STATUS: ADM IN [facility] [address] [place] [address] END OF REPORT
--- NOTE | 2019-08-11 13:28 | MORECARE ---
CASE MANAGEMENT DISCHARGE SUMMARY PATIENT: MONICO PAREDES UNIT: [id number] ADM DATE: 08/09/19 AGE: 68 : 49 SEX: F ROOM/BED: D.2232 AUTHOR: REBECCA FRANCIS PHYSICIAN: REFERRING PHYSICIAN: TIMOTHY EUCEDA MD DATE OF SERVICE: 08/11/19 Discharge Plan Patient Name: MONICO PRAEDES Facility: [facility]:[place] : 1950 Planned Disposition: Home Anticipated Discharge Date: Discharge Date: Expected LOS: Initial Reviewer: [email or web address] Initial Review Date: 08/11/2019 Generated: 08/11/19 2:27 pm Comments DCP- Discharge Planning Updated by [id number]: Gilda Beasley on 08/11/19 12:[address] Patient Name: MONICO PAREDES Admission Status: ER Accout number: [id number] Admission Date: 08-09-2019 : 1950 Admission Diagnosis: Attending: TIMOTHY EUCEDA Current LOS: 2 Anticipated DC Date: Planned Disposition: Home Primary Insurance: [facility] [employer] Discharge Planning Comments: CM called patient to complete initial dc planning assessment, since she is in isolation. CM educated patient on the CM role and verbal consent given by patient to complete assessment. Patient lives at home with her spouse, grand daughter and her two children. At discharge patient plans to return and feels this is a safe discharge. CM discussed availability of home health, rehab services, and medical equipment. Patient denied known discharge needs at this time. I asked her if she needed oxygen, did she have a preference of providers and she does not. I reviewed the list of DME providers and informed her that there was also [facility] in [place] and she chooses [facility]. She will need a walk test prior to discharge to qualify for oxygen. She also does not have a nebulizer, so CM will need an order if needed. CM will continue to follow and will assist as needed with dc plans/needs. Catheter Finisher And Inspector: Gilda Beasley DCPIA - Discharge Planning Initial Assessment Updated by [email or web address]: Gilda Beasley on 08/11/19 1:17 pm * Is the patient Alert and Oriented? Yes * How many steps to enter\exit or inside your home? 4/0 * PCP Dr. Euceda * Pharmacy [facility] [place] * Preadmission Environment Home with Family * ADLs Independent * Equipment Cane Glucometer * List name and contact numbers for known caregivers / representatives who currently or will assist patient after discharge: Dakota Paredes - spouse - [phone] * Verbal permission to speak to the caregivers and representatives has been obtained from the patient. Yes * Community resources currently utilized None * Additional services required to return to the preadmission environment? No * Can the patient safely return to the preadmission environment? Yes * Has this patient been hospitalized within the prior 30 days at any hospital? No Coverage Notice Reviewer: [email or web address] Kristen Beasley Notice Issued Date-Time: 08/11/2019 13:22 Notice Type: Patient Choice Letter Notice Delivered To: Patient Relationship to Patient: Self Apprentice Cosmetologist Name: Delivery Method: HAND - Hand Delivered Rekha Days: Prior Verbal Notification: Recipient Understood Notice: Yes Recipient Signature: Yes Med Rec Note Co-signed by Attending: Coverage Notice Comment: [facility] if needed Last DP export: 08/11/19 12:20 p Patient Name: MONICO PAREDES Page [phone] at 1328 All edits/amendments must be made on the electronic document DICTATION DATE: 08/11/191326 VULNERABILITY RESEARCHER: JERO 08/11/19 1327 RPT#: [id number] DC DATE: STATUS: ADM IN [facility] [address] [place] [address] END OF REPORT
[2019-08-11 16:35] VITALS: BP 181/64
[2019-08-11 20:00] VITALS: BP 171/57
[2019-08-12] VITALS: BP 131/49; BP 160/95
[2019-08-12 04:00] VITALS: BP 166/69
[2019-08-12 06:30] LABS: BASOPHILS 0.1 % (0-2); EOSINOPHILS 9.9 % (0-7); HEMATOCRIT 33.1 % (36.0-48.0); HEMOGLOBIN 9.7 g/dL (12-16); IMMATURE GRANULOCYTES 0.1 % (0-5); LYMPHOCYTES 20.3 % (15-50); MCH 26.4 pg (26.0-34.0); MCHC 29.3 g/dL (31.0-37.0); MCV 89.9 fL (80.0-100.0); MEAN PLATELET VOLUME 10.2 fL (7.4-10.4); MONOCYTES 6.6 % (2-11); PLATELET COUNT 290 10x3/uL (130-400); RBC 3.68 10x6/uL (4.00-5.40); WBC 6.7 10x3/uL (4.8-10.8)
[2019-08-12 06:42] LABS: ANION GAP 8.9 mmol/L (8-16); CALCIUM 8.3 mg/dL (8.5-10.1); CARBON DIOXIDE 32.6 mmol/L (21.0-32.0); CREATININE - SERUM 1.3 mg/dL (0.6-1.3); POTASSIUM - SERUM 4.5 mmol/L (3.5-5.1)
--- NOTE | 2019-08-12 08:03 | NUR ---
PT LYING IN BED ON RT SIDE, STATES SHE FEELS BETTER TODAY, PT STATED SHE WAS TOLD YESTERDAY SHE CAN BE OFF ISOLATION, WENT OVER NURSES NOTES WELL PHYSICIAN NOTES AND AM UNABLE TO VERIFY THIS, INFECTION CONTROL OFF TODAY, ADVISED PT I WILL LOOK FURTHER INTO THIS, NO OTHER NEEDS AT THIS TIME, CONTINUE WITH PLAN OF CARE
--- NOTE | 2019-08-12 08:30 | NUR ---
ADMINISTERED MORNING MEDICATION AT THIS TIME, ASSESSED PT BLOOD SUGAR WHICH DID NOT REQUIRE ANY COVRAGE, ASSISTED IN SETTING UP BREAKFAST TRAY, PERFORMED ASSESSMENT AT THIS TIME AND GOT 0800 VITALS AND EMPTIED PT [place] BAG, 1600 OUTPUT. PT SAT UP ON BEDSIDE BY HERSELF. PT HAS IV TO UPPER RIGHT ARM, SITE LOOKS BRUISED BUT IV WORKS WELL, PT IS ON 3L OF OXYGEN VIA NC. ON DROPLET PRECAUTION FOR POSSIBLE STREP A. PT WAS TOLD YESTERDAY THAT SHE WOULD COME OFF OF DROPLET ISOLATION TODAY. LOOKING IN NOTES FOR INDICATION. DENIES ANY NEEDS AT THIS TIME. WILL CONTINUE TO MONITOR.
--- NOTE | 2019-08-12 10:07 | NUR ---
I have reviewed this patient and I concur with the Shift Assessment completed by the Licensed Practical Nurse today this shift.
--- NOTE | 2019-08-12 11:07 | NUR ---
GAVE PT A BED BATH. CHANGE LINENS WELL. RESTING COMFORTABLY. DENIES ANY NEEDS AT THIS TIME. FAMILY MEMBER IN ROOM. WILL CONTINUE TO MONITOR.
--- NOTE | 2019-08-12 12:33 | NUR ---
ASSESSED VITALS AT THIS TIME. BP 153/46 PULSE 59 AND TEMP IS 98.7 ASSESSED SUGAR, 146, DOES NOT REQUIRE COVERAGE PER SLIDING SCALE. PT IS RESTING COMFORTABLY IN BED. DENIES ANY NEEDS AT THIS TIME. WILL CONTINUE TO MONITOR.
[2019-08-12] MEDS ORDERED: METOLAZONE2.5 MG PO (14:48)
--- NOTE | 2019-08-12 15:59 | NUR ---
D/C PT [place] PER DR. FELIPE. TOLERATED WELL. PT ATTEMPTING TO URINATE. RT DID WALK TEST FOR PT. PT QUALIFIES FOR HOME OXYGEN. DENIES ANY NEEDS AT THIS TIME. WILL CONTINUE TO MONITOR .
--- NOTE | 2019-08-12 16:25 | NUR ---
D/C PATIENT IV WITH TIP INTACT, TOLERATED WELL. PT HAS URINATED SINCE [place] CATHETER REMOVAL. GETTING DRESSED. AWAITING INFO FOR HOME OXYGEN BEFORE DISCHARGE. DENIES ANY NEEDS AT THIS TIME. WILL CONTINUE TO MONITOR.
--- NOTE | 2019-08-12 17:26 | MORECARE ---
CASE MANAGEMENT DISCHARGE SUMMARY PATIENT: MONICO PAREDES UNIT: [id number] ADM DATE: 08/09/19 AGE: 68 : 49 SEX: F ROOM/BED: D.2232 AUTHOR: REBECCA FRANCIS PHYSICIAN: REFERRING PHYSICIAN: TIMOTHY EUCEDA MD DATE OF SERVICE: 08/12/19 Discharge Plan Patient Name: MONICO PAREDES Facility: [facility]:[place] : 1950 Planned Disposition: Home Anticipated Discharge Date: 08/12/19 Discharge Date: Expected LOS: 3 Initial Reviewer: [email or web address] Initial Review Date: 08/11/2019 Generated: 08/12/19 6:25 pm Comments DCP- Discharge Planning Updated by [id number]: Gilda Beasley on 08/11/19 12:[address] Patient Name: MONICO PAREDES Admission Status: ER Accout number: [id number] Admission Date: 08-09-2019 : 1950 Admission Diagnosis: Attending: TIMOTHY EUCEDA Current LOS: 2 Anticipated DC Date: Planned Disposition: Home Primary Insurance: [facility] [employer] Discharge Planning Comments: CM called patient to complete initial dc planning assessment, since she is in isolation. CM educated patient on the CM role and verbal consent given by patient to complete assessment. Patient lives at home with her spouse, grand daughter and her two children. At discharge patient plans to return and feels this is a safe discharge. CM discussed availability of home health, rehab services, and medical equipment. Patient denied known discharge needs at this time. I asked her if she needed oxygen, did she have a preference of providers and she does not. I reviewed the list of DME providers and informed her that there was also [facility] in [place] and she chooses [facility]. She will need a walk test prior to discharge to qualify for oxygen. She also does not have a nebulizer, so CM will need an order if needed. CM will continue to follow and will assist as needed with dc plans/needs. Director Of Cloud Services: Gilda Beasley DCPIA - Discharge Planning Initial Assessment Updated by [email or web address]: Gilda Beasley on 08/11/19 1:17 pm * Is the patient Alert and Oriented? Yes * How many steps to enter\exit or inside your home? 4/0 * PCP Dr. Euceda * Pharmacy [facility] [place] * Preadmission Environment Home with Family * ADLs Independent * Equipment Cane Glucometer * List name and contact numbers for known caregivers / representatives who currently or will assist patient after discharge: Dakota Paredes - spouse - [phone] * Verbal permission to speak to the caregivers and representatives has been obtained from the patient. Yes * Community resources currently utilized None * Additional services required to return to the preadmission environment? No * Can the patient safely return to the preadmission environment? Yes * Has this patient been hospitalized within the prior 30 days at any hospital? No Coverage Notice Reviewer: [email or web address] Kristen Beasley Notice Issued Date-Time: 08/11/2019 13:22 Notice Type: Patient Choice Letter Notice Delivered To: Patient Relationship to Patient: Self Receivable Executive Name: Delivery Method: HAND - Hand Delivered Rekha Days: Prior Verbal Notification: Recipient Understood Notice: Yes Recipient Signature: Yes Med Rec Note Co-signed by Attending: Coverage Notice Comment: [facility] if needed Last DP export: 08/11/19 12:28 p Patient Name: MONICO PAREDES Page 04244 at 1726 All edits/amendments must be made on the electronic document DICTATION DATE: 08/12/191724 SIX HORSE HITCH DRIVER: JERO 08/12/191724 RPT#: [id number] DC DATE: STATUS: ADM IN [facility] [address] [place] [address] END OF REPORT
--- NOTE | 2019-08-12 17:32 | MORECARE ---
CASE MANAGEMENT DISCHARGE SUMMARY PATIENT: MONICO PAREDES UNIT: [id number] ADM DATE: 08/09/19 AGE: 68 : 49 SEX: F ROOM/BED: D.2232 AUTHOR: TITO,DOC PHYSICIAN: REFERRING PHYSICIAN: TIMOTHY EUCEDA MD DATE OF SERVICE: 08/12/19 Discharge Plan Patient Name: MONICO PAREDES Facility: [facility]:[place] : 1950 Planned Disposition: Home Anticipated Discharge Date: 08/12/19 Discharge Date: Expected LOS: 3 Initial Reviewer: [email or web address] Initial Review Date: 08/11/2019 Generated: 08/12/19 6:32 pm Comments DCP- Discharge Planning Updated by [email or web address]: Kristie Cruzs on 08/12/19 4:[address] LATE ENTRY 1520 PATIENT FOR DISCHARGE TODAY. SHE IS ON NASAL O2 AT 3/L. DIRECTOR OF INCOME TAX REQUESTED OXYGEN ON ROOM AIR. PATIENTS RESTING O2 SAT ON ROOM AIR IS 87%. RECOVERY O2 SAT IS 92% ON 2/L VIA NASAL CANNULA. ORDER OBTAINED FOR NASAL O2 AT 3/L. TC TO [facility] PER PATIENT'S CHOICE FORM. REC CB FROM DANGELO. HE WAS IN [place]. ETA 2 HOURS. REQUESTED PORTABLE AND STATIONARY UNITS. PORTABLE TO BE DELIVERED TO THE PATIENT'S ROOM. PACKET W/ ORDER FACE SHEET, PULSE OXI READING ON ROOM AIR, H/P AND 08/12/2019 NOTE IN PACKET FOR THE OFFICE. STATIONARY UNIT TO BE DELIVERED TO THE PATIENT'S HOME. SUSANNAH SPOKE WITH THE PRIMARY NURSE, MAGNOLIA. SHE HAS THE PACKET. DCP- Discharge Planning Updated by [id number]: Gilda Ramos on 08/11/19 12:[address] Patient Name: MONICO PAREDES Admission Status: ER Accout number: [id number] Admission Date: 08-09-2019 : 1950 Admission Diagnosis: Attending: TIMOTHY EUCEDA Current LOS: 2 Anticipated DC Date: Planned Disposition: Home Primary Insurance: [facility] [employer] Discharge Planning Comments: CM called patient to complete initial dc planning assessment, since she is in isolation. CM educated patient on the CM role and verbal consent given by patient to complete assessment. Patient lives at home with her spouse, grand daughter and her two children. At discharge patient plans to return and feels this is a safe discharge. CM discussed availability of home health, rehab services, and medical equipment. Patient denied known discharge needs at this time. I asked her if she needed oxygen, did she have a preference of providers and she does not. I reviewed the list of DME providers and informed her that there was also [facility] in [facility] and she chooses [facility]. She will need a walk test prior to discharge to qualify for oxygen. She also does not have a nebulizer, so CM will need an order if needed. CM will continue to follow and will assist as needed with dc plans/needs. Storage Solutions Architect: Gilda Beasley DCPIA - Discharge Planning Initial Assessment Updated by [id number]: Gilda Beasley on 08/11/19 1:17 pm * Is the patient Alert and Oriented? Yes * How many steps to enter\exit or inside your home? 4/0 * PCP Dr. Euceda * Pharmacy [facility] * Preadmission Environment Home with Family * ADLs Independent * Equipment Cane Glucometer * List name and contact numbers for known caregivers / representatives who currently or will assist patient after discharge: Dakota Paredes - spouse - [phone] * Verbal permission to speak to the caregivers and representatives has been obtained from the patient. Yes * Community resources currently utilized None * Additional services required to return to the preadmission environment? No * Can the patient safely return to the preadmission environment? Yes * Has this patient been hospitalized within the prior 30 days at any hospital? No Coverage Notice Reviewer: [id number] - Gilda Beasley Notice Issued Date-Time: 08/11/2019 13:22 Notice Type: Patient Choice Letter Notice Delivered To: Patient Relationship to Patient: Self Peer Support Specialist Name: Delivery Method: HAND - Hand Delivered Rekha Days: Prior Verbal Notification: Recipient Understood Notice: Yes Recipient Signature: Yes Med Rec Note Co-signed by Attending: Coverage Notice Comment: [facility] for [facility] if needed Last DP export: 08/12/19 4:26 p Patient Name: MONICO PAREDES Page [id number] at 1737 All edits/amendments must be made on the electronic document DICTATION DATE: 03/21/20 1732 BODY WORKER: JERO 08/12/19 1732 RPT#: [id number] DC DATE: STATUS: ADM IN [facility] [address] [place] [address] END OF REPORT
--- NOTE | 2019-08-12 18:27 | MORECARE ---
CASE MANAGEMENT DISCHARGE SUMMARY PATIENT: MONICO PAREDES UNIT: [id number] ADM DATE: 08/09/19 AGE: 68 : 49 SEX: F ROOM/BED: D.2232 AUTHOR: TITO,DOC PHYSICIAN: REFERRING PHYSICIAN: TIMOTHY EUCEDA MD DATE OF SERVICE: 08/12/19 Discharge Plan Patient Name: MONICO PAREDES Facility: [facility]:[place] : 1950 Planned Disposition: Home Anticipated Discharge Date: 08/12/19 Discharge Date: Expected LOS: 3 Initial Reviewer: [email or web address] Initial Review Date: 08/11/2019 Generated: 08/12/19 7:26 pm Comments DCP- Discharge Planning Updated by [id number]: Kristie Israel on 08/12/19 5:[address] 1800 - DANGELO FROM [facility] ARRIVED W/ PORTABLE OXYGEN. PACKET PROVIDED. PATIENT TO BE DISCHARGED TO HOME W/ FAMILY. DANGELO WILL DELIVER THE STATIONARY UNIT TO THE PATIENT'S HOME. DCP- Discharge Planning Updated by [id number]: Kristie Israel on 08/12/19 4:[address] LATE ENTRY 1520 PATIENT FOR DISCHARGE TODAY. SHE IS ON NASAL O2 AT 3/L. FOOD SAMPLER REQUESTED OXYGEN ON ROOM AIR. PATIENTS RESTING O2 SAT ON ROOM AIR IS 87%. RECOVERY O2 SAT IS 92% ON 2/L VIA NASAL CANNULA. ORDER OBTAINED FOR NASAL O2 AT 3/L. TC TO [facility] PER PATIENT'S CHOICE FORM. REC CB FROM DANGELO. HE WAS IN [place]. ETA 2 HOURS. REQUESTED PORTABLE AND STATIONARY UNITS. PORTABLE TO BE DELIVERED TO THE PATIENT'S ROOM. PACKET W/ ORDER FACE SHEET, PULSE OXI READING ON ROOM AIR, H/P AND 08/12/2019 NOTE IN PACKET FOR THE OFFICE. STATIONARY UNIT TO BE DELIVERED TO THE PATIENT'S HOME. SUSANNAH SPOKE WITH THE PRIMARY NURSE, MAGNOLIA. SHE HAS THE PACKET. DCP- Discharge Planning Updated by [id number]: Gilda Beasley on 08/11/19 12:[address] Patient Name: MONICO PAREDES Admission Status: ER Accout number: [id number] Admission Date: 08-09-2019 : 1950 Admission Diagnosis: Attending: TIMOTHY EUCEDA Current LOS: 2 Anticipated DC Date: Planned Disposition: Home Primary Insurance: [facility] MEDIC[employer] SOLUTIONS Discharge Planning Comments: CM called patient to complete initial dc planning assessment, since she is in isolation. CM educated patient on the CM role and verbal consent given by patient to complete assessment. Patient lives at home with her spouse, grand daughter and her two children. At discharge patient plans to return and feels this is a safe discharge. CM discussed availability of home health, rehab services, and medical equipment. Patient denied known discharge needs at this time. I asked her if she needed oxygen, did she have a preference of providers and she does not. I reviewed the list of DME providers and informed her that there was also [facility] in [place] and she chooses [facility]. She will need a walk test prior to discharge to qualify for oxygen. She also does not have a nebulizer, so CM will need an order if needed. CM will continue to follow and will assist as needed with dc plans/needs. Technician Telecommunication Systems: Gilda Beasley DCPIA - Discharge Planning Initial Assessment Updated by [id number]: Gilda Beasley on 08/11/19 1:17 pm * Is the patient Alert and Oriented? Yes * How many steps to enter\exit or inside your home? 4/0 * PCP Dr. Euceda * Pharmacy [facility] * Preadmission Environment Home with Family * ADLs Independent * Equipment Cane Glucometer * List name and contact numbers for known caregivers / representatives who currently or will assist patient after discharge: Dakota Paredes - [facility] - [phone] * Verbal permission to speak to the caregivers and representatives has been obtained from the patient. Yes * Community resources currently utilized None * Additional services required to return to the preadmission environment? No * Can the patient safely return to the preadmission environment? Yes * Has this patient been hospitalized within the prior 30 days at any hospital? No Coverage Notice Reviewer: [id number] - Gilda Beasley Notice Issued Date-Time: 08/11/2019 13:22 Notice Type: Patient Choice Letter Notice Delivered To: Patient Relationship to Patient: Self Knot Saw Operator Name: Delivery Method: HAND - Hand Delivered Rekha Days: Prior Verbal Notification: Recipient Understood Notice: Yes Recipient Signature: Yes Med Rec Note Co-signed by Attending: Coverage Notice Comment: [facility] for [facility] if needed Reviewer: [id number] - Kristie Israel Notice Issued Date-Time: 08/12/2019 18:00 Notice Type: IM Discharge Notice Notice Delivered To: Patient Relationship to Patient: Self Knot Saw Operator Name: Delivery Method: HAND - Hand Delivered Rekha Days: Prior Verbal Notification: Recipient Understood Notice: Yes Recipient Signature: Yes Med Rec Note Co-signed by Attending: Coverage Notice Comment: DISCHARGE IMM SERVED. PATIENT SIGNATURE OBTAINED TO PATIENT AND CHART COPY. VOICED NO QUESTIONS OR CONCERNS. Last DP export: 08/12/19 4:32 p Patient Name: MONICO PAREDES Page [id number] at 1827 All edits/amendments must be made on the electronic document DICTATION DATE: 08/12/191825 RESEARCH CENTER PARTNER: JERO 08/12/191825 RPT#: [id number] DC DATE: STATUS: ADM IN [facility] [address] [place] [address] END OF REPORT
--- NOTE | 2019-08-13 15:51 | MORECARE ---
CASE MANAGEMENT DISCHARGE SUMMARY PATIENT: MONICO PAREDES UNIT: [id number] ADM DATE: 08/09/19 AGE: 68 : 49 SEX: F ROOM/BED: D.2232 AUTHOR: TITO,DOC PHYSICIAN: REFERRING PHYSICIAN: TIMOTHY EUCEDA MD DATE OF SERVICE: 08/13/19 Discharge Plan Patient Name: MONICO PAREDES Facility: [facility]:[place] : 1950 Planned Disposition: Home Anticipated Discharge Date: 08/12/19 Discharge Date: 08/12/2019 Expected LOS: 3 Initial Reviewer: [email or web address] Initial Review Date: 08/11/2019 Generated: 08/13/19 4:51 pm Comments DCP- Discharge Planning Updated by [id number]: Kristie Israel on 08/12/19 5:[address] 1800 - DANGELO FROM [facility] ARRIVED W/ PORTABLE OXYGEN. PACKET PROVIDED. PATIENT TO BE DISCHARGED TO HOME W/ FAMILY. DANGELO WILL DELIVER THE STATIONARY UNIT TO THE PATIENT'S HOME. DCP- Discharge Planning Updated by [email or web address]: Kristie Israel on 08/12/19 4:[address] LATE ENTRY 1520 PATIENT FOR DISCHARGE TODAY. SHE IS ON NASAL O2 AT 3/L. EDGE RUNNER REQUESTED OXYGEN ON ROOM AIR. PATIENTS RESTING O2 SAT ON ROOM AIR IS 87%. RECOVERY O2 SAT IS 92% ON 2/L VIA NASAL CANNULA. ORDER OBTAINED FOR NASAL O2 AT 3/L. TC TO [facility] PER PATIENT'S CHOICE FORM. REC CB FROM DANGELO. HE WAS IN [place]. ETA 2 HOURS. REQUESTED PORTABLE AND STATIONARY UNITS. PORTABLE TO BE DELIVERED TO THE PATIENT'S ROOM. PACKET W/ MD ORDER FACE SHEET, PULSE OXI READING ON ROOM AIR, H/P AND 08/12/2019 NOTE IN PACKET FOR THE OFFICE. STATIONARY UNIT TO BE DELIVERED TO THE PATIENT'S HOME. SUSANNAH SPOKE WITH THE PRIMARY NURSE, MAGNOLIA. SHE HAS THE PACKET. DCP- Discharge Planning Updated by [id number]: Gilda Beasley on 08/11/19 12:[address] Patient Name: MONICO PAREDES Admission Status: ER Accout number: [id number] Admission Date: 08-09-2019 : 1950 Admission Diagnosis: Attending: TIMOTHY EUCEDA Current LOS: 2 Anticipated DC Date: Planned Disposition: Home Primary Insurance: [facility] [employer] Discharge Planning Comments: CM called patient to complete initial dc planning assessment, since she is in isolation. CM educated patient on the CM role and verbal consent given by patient to complete assessment. Patient lives at home with her spouse, grand daughter and her two children. At discharge patient plans to return and feels this is a safe discharge. CM discussed availability of home health, rehab services, and medical equipment. Patient denied known discharge needs at this time. I asked her if she needed oxygen, did she have a preference of providers and she does not. I reviewed the list of DME providers and informed her that there was also [facility] in [place] and she chooses [facility]. She will need a walk test prior to discharge to qualify for oxygen. She also does not have a nebulizer, so CM will need an order if needed. CM will continue to follow and will assist as needed with dc plans/needs. Third Cook: Gilda Beasley DCPIA - Discharge Planning Initial Assessment Updated by [id number]: Gilda Beasley on 08/11/19 1:17 pm * Is the patient Alert and Oriented? Yes * How many steps to enter\exit or inside your home? 4/0 * PCP Dr. Euceda * Pharmacy [facility] * Preadmission Environment Home with Family * ADLs Independent * Equipment Cane Glucometer * List name and contact numbers for known caregivers / representatives who currently or will assist patient after discharge: Dakota Paredes - [facility] - [phone] * Verbal permission to speak to the caregivers and representatives has been obtained from the patient. Yes * Community resources currently utilized None * Additional services required to return to the preadmission environment? No * Can the patient safely return to the preadmission environment? Yes * Has this patient been hospitalized within the prior 30 days at any hospital? No Coverage Notice Reviewer: [id number] - Gilda Beasley Notice Issued Date-Time: 08/11/2019 13:22 Notice Type: Patient Choice Letter Notice Delivered To: Patient Relationship to Patient: Self Reconciliation Clerk Name: Delivery Method: HAND - Hand Delivered Rekha Days: Prior Verbal Notification: Recipient Understood Notice: Yes Recipient Signature: Yes Med Rec Note Co-signed by Attending: Coverage Notice Comment: [facility] for [facility] if needed Reviewer: [id number] - Kristie Israel Notice Issued Date-Time: 08/12/2019 18:00 Notice Type: IM Discharge Notice Notice Delivered To: Patient Relationship to Patient: Self Reconciliation Clerk Name: Delivery Method: HAND - Hand Delivered Rekha Days: Prior Verbal Notification: Recipient Understood Notice: Yes Recipient Signature: Yes Med Rec Note Co-signed by Attending: Coverage Notice Comment: DISCHARGE IMM SERVED. PATIENT SIGNATURE OBTAINED TO PATIENT AND CHART COPY. VOICED NO QUESTIONS OR CONCERNS. Last DP export: 08/12/19 5:27 p Patient Name: MONICO PAREDES Page [id number] at 1551 All edits/amendments must be made on the electronic document DICTATION DATE: 08/13/191550 AGENCY DEVELOPMENT MANAGER: JERO 08/13/19 155 RPT#: [id number] DC DATE:08/12/19 STATUS: DIS IN [facility] [address] [place] [address] END OF REPORT
== END 2019-08-12 18:28 | disposition home or self-care (01) | DRG 291 ==
LOC: D.ER 11:43 → D.MS 14:28 → D.M2 14:28 → D.MS 15:46
PROVIDERS: Emergency Medicine; ADMIT Family Medicine; ATTEND Family Medicine
DX: I11.0 Hypertensive heart disease with heart failure (principal); I50.21 Acute systolic (congestive) heart failure; Z68.41 Body mass index [BMI] 40.0-44.9, adult; E11.9 Type 2 diabetes mellitus without complications; I25.10 Atherosclerotic heart disease of native coronary artery without angina pectoris; M19.90 Unspecified osteoarthritis, unspecified site; E66.9 Obesity, unspecified; J02.0 Streptococcal pharyngitis

== ENCOUNTER → 2019-10-04 10:16 | Outpatient (CLI) | payer MEDICARE ==
[2019-08-10 13:24] VITALS: BMI 43.9
[~2019-10-04 10:16] MED LIST changes: +DILTIAZEM 24HR360 M4 PO; +METOLAZONE2.5 MG PO
== END | disposition home or self-care (01) ==
LOC: D.HCCECHO 10:16
PROVIDERS: ATTEND Internal Medicine Cardiovascular Disease
DX: I10 Essential (primary) hypertension (principal)

== ENCOUNTER 2020-07-19 17:23 | Inpatient (IN) | payer MEDICARE ==
[~2020-07-19] VITALS: Ht 157.5 cm; Wt 117.0 kg
--- NOTE | ~2020-07-19 | HEMODYNAMI ---
PATIENT:MONICO CHAPMAN MEDICAL RECORD: [id number] : 48 LOCATION:[id number] ADMISSION DATE: 07/21/20 Generatedon:110:54 Patient name: MONICO CHAPMAN Patient #: [id number] SSN: [id number] : 1950 Date of study: 07/22/2020 Page: Of Hemodynamic Procedure Report Patient Data Patient Demographics Procedure consent was obtained First Name: MONICO Gender: Female Last Name: ADELA : 1950 Middle Initial: CINDY Age: 69 year(s) Patient #: [id number] Race: Unknown SSN: [id number] Additional ID: [id number] Contact details [address]: [address] [place] [address] State: [place] City: [facility] Zip code: [address] Past Medical History History of disease Date Diagnosis Comments CAD Allergies Allergen Reaction Date Comments Reported Other allergy 03/01/2018 codeine Other allergy 03/03/2018 codeine Codeine 08/08/2018 Other allergy 02/14/2019 codeine Other allergy 06/10/2020 CODEINE Codeine 07/22/2020 Admission Admission Data Admission Date: 07/21/2020 Admission Time: 12:07 Room #: [id number] Height (in.): 62 BSA: 2.13 (m2) Height (cm.): 157.48 BMI: 47.18 (kg/m2) Weight (lbs.): 257.94 Weight (kg.): 117 Lab Results Lab Result Date: 07/22/2020 Lab Result Time: 0:00 Biochemistry Name Units Result Min Max BUN mg/dl 39 --(----)-* 7 18 Creatinine mg/dl 1.5 --(----)-* 0.6 1.3 eGFR ml/min 36 *-(----)-- 90 120 NONAFRICAN Procedure Procedure Types Cath Procedure Diagnostic Procedure Right Heart RHC and LHC w/Coronaries Right Heart Pharmacology Study FFR/IVUS FFR Initial Sedation Charges Moderate Sedation 25-39 minutes PCI Procedure Hemochron ACT Test Procedure Description Procedure Date Procedure Date: 07/22/2020 Procedure Start Time: 10:04 Procedure End Time: 10:51 Procedure Staff Name Function Chase Grossman MD Performing Physician Deanne Garcia RT Monitor Kenyetta Blanco RT Scrub Gordo Gutierrez RN Nurse Indication Shortness of breath Angina Procedure Data Cath Procedure Fluoroscopy Diagnostic fluoroscopy Total fluoroscopy Time: 3.3 time: 3.3 min min Diagnostic fluoroscopy Total fluoroscopy dose: 690 dose: 690 mGy mGy Contrast Material Contrast Material Type Amount (ml) Isovue 300 66 Entry Location Entry Primary Successful Side Size Upsize Upsize Entry Closure Nice ccessful Closure Location (Fr) 1 (Fr) 2 (Fr) Remarks Device Remarks Femoral Right 7 Fr Manual vein Short Compression Femoral Right 5 Fr Exoseal artery Estimated blood loss: 10 ml Diagnostic catheters Device Type Used For End Catheter Placement SWAN 7Fr Thermodilution Right Coronary cather (131F7P) Angiography MULTIPACK JL 4.0 5Fr Procedure catheter MULTIPACK 3DRC 5Fr Procedure catheter MULTIPACK Pigtail 5 Fr Ventriculography catheter MULTIPACK 3DRC 5Fr Procedure catheter Procedure Complications No complications Procedure Medications Medication Administration Route Dosage Oxygen etCO2 Nasal cannula 2 l/min Lidocaine 2% added to field 20 Heparin Flush Bag added to field 2 bags (1000units/500ml NS) 0.9% NaCl I.V. 50 ml/hr Oxygen etCO2 Nasal cannula 2 l/min Heparin Flush Bag added to field 2 bags (1000units/500ml NS) Lidocaine 2% added to field 20 0.9% NaCl I.V. 100 ml/hr Fentanyl I.V. 50 mcg Versed I.V. 1 mg Adenosine IV 3mg/ml I.V. 50 mcg/kg/min Adenosine IV 3mg/ml I.V. 100 mcg/kg/min Adenosine IV 3mg/ml I.V. 150 mcg/kg/min Adenosine IV 3mg/ml I.V. 200 mcg/kg/min Adenosine IV 3mg/ml I.V. 200 Versed I.V. 0.5 mg Fentanyl I.V. 25 mcg Heparin Bolus I.V. 2000 units Fentanyl I.V. 25 mcg Versed I.V. 0.5 mg Hemodynamics Rest BSA: 2.13 (m2) O2 Consumption: Estimated: 187.7 (ml/min) O2 Consumption indexed: Estimated:88.12 (ml/min/m) Heart Rate: 59 (bpm) Pressure Samples Time Site Value (mmHg) Purpose Heart Use Rate(bpm) 10:09 PCW 28/33(26) Snapshot 60 10:09 PCW 28/31(26) Snapshot 62 10:10 PA 51/22(31) Snapshot 58 10:11 PA 51/21(32) Snapshot 59 10:13 PA 49/18(30) Snapshot 60 10:15 PA 47/20(28) Snapshot 61 10:18 PA 45/17(28) Snapshot 69 10:20 PA 51/22(34) Snapshot 76 10:21 PA 53/23(32) Snapshot 70 10:24 PA 50/21(32) Snapshot 76 10:24 RV 56/9,13 Snapshot 78 10:25 RA 15/14(12) Snapshot 74 10:29 LV 155/16,15 Snapshot 80 10:30 AO 158/54(97) Pullback 73 10:30 LV 151/14,20 Pullback 73 Gradients Valve Time Site 1 Site 2 Mean SEP/DFP Peak To Heart Use (mmHg) (sec/min) Peak Rate (mmHg) (bpm) Aortic 10:30 LV AO 0 10 0 73 151/14,20 158/54(97) Calculations Valve P-P Mean Valve Index Valve Source Name Gradient Area Flow (cm2) Aortic 0 0 0 0 Snapshots Pre Cath Intra NCS Post Cath Vital Signs Time Heart Resp SPO2 etCO2 NIBP (mmHg) Rhythm Pain Sedation Rate (ipm) (%) (mmHg) Status Level (bpm) 9:57:12 59 15 96 0 179/79(118) NSR 0 (11) 10(A) , No pain 10:01:22 62 12 94 0 171/81(135) NSR 0 (11) 10(A) , No pain 10:05:36 57 10 90 0 171/75(126) NSR 0 (11) 9(A) , No pain 10:09:48 61 11 93 0 170/77(134) NSR 0 (11) 9(A) , No pain 10:14:04 58 10 93 0 170/71(125) NSR 0 (11) 9(A) , No pain 10:18:22 70 16 96 0 151/67(106) NSR 0 (11) 9(A) , No pain 10:23:33 75 17 95 0 154/67(123) NSR 0 (11) 9(A) , No pain 10:28:47 66 12 86 0 172/68(135) NSR 0 (11) 9(A) , No pain 10:33:01 62 12 91 0 163/74(132) NSR 0 (11) 9(A) , No pain 10:37:11 61 13 90 0 157/77(121) NSR 0 (11) 9(A) , No pain 10:41:22 60 13 90 0 161/74(116) NSR 0 (11) 10(A) , No pain 10:45:34 61 12 93 0 154/75(120) NSR 0 (11) 10(A) , No pain 10:49:34 95 0 No Cuff NSR 0 (11) 10(A) , No pain Medications Time Medication Route Dose Verified Delivered Reason Notes Effectiveness by by 9:55:35 Oxygen etCO2 2 l/min Chase Buffie used for Nasal [facility] Oleksandr Gutierrez system analyst cannula 9:55:41 Lidocaine 2% added 20ml vial Chase Chase for local to [facility] anesthetic field MD BERNAL 9:55:47 Heparin Flush added 2 bags Chase Chase used for Bag to [facility] procedure (1000units/500ml field MD BERNAL NS) 9:55:56 0.9% NaCl I.V. 50 ml/hr Chase Buffie Per physician St Oleksandr Gutierrez RN, MD 9:59:31 Oxygen etCO2 2 l/min Buffie Buffie for low 02 sat s Nasal Gutierrez RN Gutierrez RN cannula 9:59:39 Heparin Flush added 2 bags Buffie Buffie used for Bag to Gutierrez RN Brenda system analyst (1000units/500ml NS) 9:59:46 Lidocaine 2% added 20ml vial Buffie Chase for local to Gutierrez RN [place] anesthetic field BERNAL 9:59:56 0.9% NaCl I.V. 100ml/hr Buffie Buffie Per physician Brenda Gutierrez RN 10:02:28 Fentanyl I.V. 50 mcg Buffie Buffie for sedation Gutierrez RN Brenda RN 10:02:34 Versed I.V. 1 mg Buffie Buffie for sedation Gutierrez RN Gutierrez RN 10:14:07 Adenosine IV I.V. 50 Buffie Buffie Per physician 3mg/ml mcg/kg/min Brenda Gutierrez RN 10:16:13 Adenosine IV I.V. 100 Buffie Buffie Per physician 3mg/ml mcg/kg/min Brenda Gutierrez RN 10:18:24 Adenosine IV I.V. 150 Buffie Buffie Per physician 3mg/ml mcg/kg/min Brenda Gutierrez RN 10:21:57 Adenosine IV I.V. 200 Buffie Buffie Per physician 3mg/ml mcg/kg/min Brenda Gutierrez RN 10:24:01 Adenosine IV I.V. 200 Buffie Buffie Per physician 3mg/ml mcg/kg/min- Brenda Gutierrez RN discontinued 10:25:17 Versed I.V. 0.5 mg Buffie Buffie for sedation Brenda Gutierrez RN 10:25:20 Fentanyl I.V. 25 mcg Buffie Buffie for sedation Brenda Gutierrez RN 10:32:03 Heparin Bolus I.V. 2000 units Buffie Buffie for verified w Brenda Gutierrez RN anticoagulation michelle moran rn 10:36:06 Fentanyl I.V. 25 mcg Buffie Buffie for sedation Brenda Gutierrez RN 10:36:12 Versed I.V. 0.5 mg Buffie Buffie for sedation Brenda Gutierrez RN Procedure Log Time Note 8:28:18 Informed consent obtained and on chart 8:28:46 Procedure Status Urgent Heart Cath (IP). 8:28:47 Time tracking: Regular hours (M-F 7:00 - 5:00) 8:28:50 Plan of Care:Hemodynamics will remain stable., Cardiac rhythm will remain stable., Comfort level will be maintained., Respiratory function will remain adequate., Patient/ family verbilizes understanding of procedure., Procedure tolerated without complication., Recovers from procedure without complications.. 8:33:24 H&P Date Dictated: 07/21/2020 ER History on chart.. 8:42:47 Indication : Shortness of breath 8:43:14 Indication : Angina 9:08:22 Lab Result : BUN 39 mg/dl 9:08:22 Lab Result : eGFR NONAFRICAN 36 ml/min 9:08:22 Lab Result : Creatinine 1.5 mg/dl 9:08:27 Patient Weight : 257.94 lbs 9:08:30 Patient Height : 62 inches 9:12:18 Patient allergic to Codeine 9:19:15 Deanne Garcia RT(R) sent for patient. Start room use. 9:41:54 Patient received from Med/Surg to CCL 2 Alert and oriented. Tansferred to table in Supine position. 9:41:55 Warm blankets applied, and navid hugger turned on for patient comfort. 9:41:55 Correct patient and procedure confirmed by team. 9:41:56 ECG and BP/O2 sat monitors applied to patient. 9:41:57 Pre-procedure instructions explained to patient. 9:41:57 Pre-op teaching completed and patient verbalized understanding. 9:41:58 Family unavailable. 9:41:59 Patient NPO since Midnight. 9:42:01 Is the patient allergic to Iodine/contrast media? No. 9:42:02 Is patient on blood thinner?Yes 9:42:06 ACC The patient was administered the following blood thiners within the last 24 hours: ACCPlavix 9:42:08 Patient diabetic? Yes. 9:42:12 If diabetic: On Metformin? No 9:42:14 Previous problem with sedation/anesthesia? No ? 9:42:15 Snore? Yes 9:42:16 Sleep apnea? No 9:42:19 Deviated septum? No 9:42:20 Opens mouth fully? Yes 9:42:21 Sticks out tongue? Yes 9:42:26 Airway obstruction? Yes PNUMONIA 9:42:29 Dentures? No ? 9:42:37 IV patent on arrival in left antecubital with 0.9% NaCl at [facility]. 9:42:39 Lab results completed and on chart. 9:55:26 Vital chart was started 9:55:35 Oxygen 2 l/min etCO2 Nasal cannula was administered by Gordo Gutierrez RN; used for procedure; Verbal order read back and verified. 9:55:41 Lidocaine 2% 20ml vial added to field was administered by Chase Grossman MD; for local anesthetic; Verbal order read back and verified. 9:55:47 Heparin Flush Bag (1000units/500ml NS) 2 bags added to field was administered by Chase Grossman MD; used for procedure; Verbal order read back and verified. 9:55:56 0.9% NaCl 50 ml/hr I.V. was administered by Gordo Gutierrez RN; Per physician; Verbal order read back and verified. 9:56:18 Baseline sample Acquired. 9:56:29 Rhythm: sinus rhythm 9:56:30 Full Disclosure recording started 9:57:12 Patient pain scale 0/10 ?. 9:57:23 Right groin area was prepped with chlora-prep and draped in sterile fashion 9:57:24 Alarms reviewed by R. N. 9:57:24 Sharps counted by scrub and verified by R.N. 9:57:30 Physician arrived 9:57:41 Use device set Femoral Dx 9:59:09 ACIST Syringe (17393) opened to sterile field. 9:59:09 Bag Decanter (2002S) opened to sterile field. 9:59:10 Medline Cath Pack ([id number]) opened to sterile field. 9:59:11 ACIST Hand Control (05275) opened to sterile field. 9:59:12 ACIST Manifold (95241) opened to sterile field. 9:59:16 DIAGNOSTIC Multipack 5Fr catheter set (AM2323) opened to sterile field. 9:59:18 Tegaderm 4 x 4 (1626W) opened to sterile field. 9:59:22 SHEATH 5FR [place] (JHE492) opened to sterile field. 9:59:23 EMERALD Guide Wire (794-663) opened to sterile field. 9:59:24 SHEATH 7FR [place] (SSC572) opened to sterile field. 9:59:31 Oxygen 2 l/min etCO2 Nasal cannula was administered by Gordo Gutierrez RN; for low 02 sats; Verbal order read back and verified. 9:59:39 Heparin Flush Bag (1000units/500ml NS) 2 bags added to field was administered by Gordo Gutierrez RN; used for procedure; Verbal order read back and verified. 9:59:46 Lidocaine 2% 20ml vial added to field was administered by Chase Grossman MD; for local anesthetic; Verbal order read back and verified. 9:59:56 0.9% NaCl 100ml/hr I.V. was administered by Gordo Gutierrez RN; Per physician; Verbal order read back and verified. 10:02:08 --------ALL STOP TIME OUT------ 10:02:09 Final Timeout: patient, procedure, and site verified with staff and physician. All members of the team are in agreement. 10:02:13 Right groin site verified by team. 10:02:17 Fire Safety Assessment: A--An alcohol-based skin anteseptic being used preoperatively., C--Open oxygen or nitrous oxide is being used., D--An ESU, laser, or fiber-optic light is being used. 10:02:25 Physical assessment completed. ASA score P 3 - A patient with severe systemic disease as per Chase Grossman MD. 10:02:28 Fentanyl 50 mcg I.V. was administered by Gordo Gutierrez RN; for sedation; Verbal order read back and verified. 10:02:34 Versed 1 mg I.V. was administered by Gordo Gutierrez RN; for sedation; Verbal order read back and verified. 10:02:41 3b) 30-44 Moderately reduced kidney function. 10:02:44 Maximum allowable contrast dose (3.7 X eGFR X 0.75)100 ml. 10:02:48 Sedation plan: IV Moderate Sedation Medication:Versed, Fentanyl 10:04:09 Procedure started. 10:04:16 Zero performed for pressure channel P1 10:04:28 Local anesthetic to right femoral artery with Lidocaine 2% by Chase Grossman MD.INITIAL ACCESS ONLY 10:05:17 A 7 Fr Short sheath was inserted into the Right Femoral vein 10:06:17 A 5 Fr sheath was inserted into the Right Femoral artery 10:07:21 A SWAN 7Fr Thermodilution cather (131F7P) was advanced over the wire and used for Right Coronary Angiography. 10:07:42 Right Heart 10:10:44 Brewster-Paulette "C" tip catheter inserted 10:10:54 Right heart pressures obtained. 10:14:07 Adenosine IV 3mg/ml 50 mcg/kg/min I.V. was administered by Gordo Gutierrez RN; Per physician; Verbal order read back and verified. 10:15:43 Timer 1 started at 10:14 AM, stopped at 10:15 AM, duration 00:01:26 sec. 10:16:13 Adenosine IV 3mg/ml 100 mcg/kg/min I.V. was administered by Gordo Gutierrez RN; Per physician; Verbal order read back and verified. 10:18:17 Timer 1 started at 10:18 AM, stopped at 10:18 AM, duration 00:00:03 sec. 10:18:24 Adenosine IV 3mg/ml 150 mcg/kg/min I.V. was administered by Gordo Gutierrez RN; Per physician; Verbal order read back and verified. 10::48 Timer 1 started at 10:18 AM, stopped at 10:20 AM, duration 00:02:15 sec. 10::57 Adenosine IV 3mg/ml 200 mcg/kg/min I.V. was administered by Gordo Gutierrez RN; Per physician; Verbal order read back and verified. 10:24:01 Adenosine IV 3mg/ml 200 mcg/kg/min- discontinued I.V. was administered by Gordo Gutierrez RN; Per physician; Verbal order read back and verified. 10::17 Versed 0.5 mg I.V. was administered by Gordo Gutierrez RN; for sedation; Verbal order read back and verified. 10:25:20 Fentanyl 25 mcg I.V. was administered by Gordo Gutierrez RN; for sedation; Verbal order read back and verified. 10:25:25 Brewster-Paulette removed. 10::29 Timer 1 started at 10:24 AM, stopped at 10:25 AM, duration 00:00:43 sec. 10::43 A MULTIPACK JL 4.0 5Fr catheter was advanced over the wire and used for Procedure. 10:25:48 LCA angiography performed. 10:27:30 Catheter removed. 10:27:37 A MULTIPACK 3DRC 5Fr catheter was advanced over the wire and used for Procedure. 10:28:00 RCA angiography performed. 10::38 A MULTIPACK Pigtail 5 Fr catheter was advanced over the wire and used for Ventriculography. 10:30:05 LV gram done using BOWIE 10:30:21 EF : 55 % 10:30:51 A MULTIPACK 3DRC 5Fr catheter was advanced over the wire and used for Procedure.IFR 10:32:03 Heparin Bolus 2000 units I.V. was administered by Gordo Gutierrez RN; for anticoagulation; verified w michelle moranrn Verbal order read back and verified. 10:32:22 Zero performed for pressure channel P1 10:32:32 INFLATOR Merit Amishk (BT4097) opened to sterile field. 10:36:05 Chavez PressureWire X ([id number]) opened to sterile field. 10:36:06 Fentanyl 25 mcg I.V. was administered by Gordo Gutierrez RN; for sedation; Verbal order read back and verified. 10:36:12 Versed 0.5 mg I.V. was administered by Gordo Gutierrez RN; for sedation; Verbal order read back and verified. 10:36:17 Pressure wire advanced. 10:40:32 mRCA lesion measured at .94 with IFR 10:40:37 Wire removed. 10:40:39 Catheter removed. 10:41:02 Sheath removed intact; hemostasis achieved with Exoseal to the Right Femoral artery. 10:41:07 EXOSEAL 5Fr (EX500) opened to sterile field. 10:41:14 Procedure ended.(Physican Out) 10:42:11 Fluoroscopy time 03.30 minutes. 10:42:16 Fluoroscopy dose: 690 mGy 10:42:16 Flurop Dose total: 690 10:42:21 Dose Area Product 32154 mGy/cm. 10:43:17 Contrast amount:Isovue 300 66ml. 10:43:19 Maximum allowable dose exceeded? No. 10:43:21 Sharps counted by scrub and verified by R.N. 10:43:31 Insertion/operative site no bleeding no hematoma. 10:43:41 Post right femoral artery:stable 10:44:11 Sheath removed intact; hemostasis achieved with Manual Compression to the Right Femoral vein. 10:44:46 ACT drawn and resulted at 174 seconds. (normal therapeutic range 180-240 seconds). 10:44:59 Post Procedure Pulses reassessed and unchanged 10:45:05 Post-procedure physical assessment completed. ASA score P 2 - A patient with mild systemic disease as per Chase Grossman MD. 10:45:08 Post procedure rhythm: sinus rhythm 10:45:15 Estimated blood loss: 10 ml 10:46:58 Post procedure instruction explained to patient.Patient verbalizes understanding. 10:48:23 Procedure type changed to Cath procedure, Diagnostic procedure, Right Heart, RHC and LHC w/Coronaries, Right Heart Pharmacology Study, FFR/IVUS, FFR Initial, Sedation Charges, Moderate Sedation 25-39 minutes, PCI procedure, Hemochron ACT Test 10:50:24 Procedure and supply charges have been captured, reviewed, submitted and are correct. 10:50:31 Procedure Complication : No complications 10:50:34 Vital chart was stopped 10:50:36 [facility] Findings: mild to moderate CAD (<70%) 10:50:40 RHC Findings: no evidence of underlying pulmonary disease 10:50:54 Operative report dictated upon procedure completion. 10:50:55 See physician's report for complete and final results. 10:51:05 Report given to Med/Surg. 10:51:10 Patient transfered to Med/Surg with Bed. 10:51:12 Procedure ended. 10:51:12 Full Disclosure recording stopped 10:51:21 End room use (Document Last) 10:51:41 End room use (Document Last) 10:52:21 End room use (Document Last) 10:52:41 End room use (Document Last) Device Usage Item Name Manufacture Quantity Catalog Hospital Part Current Min imal Lot# / Number Charge Number Stock Stock Serial# Code ACIST Syringe Acist 1 44573 641457 971538 [id number] 20 (91052) Medical Systems Inc Bag Decanter Microtek 1 2001S 619735 76254 148902 5 (2001S) Medical Inc. Medline Cath Medline 1 [id number] 674630 95531 128641 5 Pack ([id number]) ACIST Hand Acist 1 43289 829195 336848 967070 5 Control Medical (84438) Systems Inc ACIST Manifold Acist 1 71507 816241 486209 355495 5 (47201) Medical Systems Inc DIAGNOSTIC Cardinal 1 HU4865 495911 09029 241006 30 Multipack 5Fr Health catheter set (YF0759) Tegaderm 4 x 4 3M 1 1626W 041602 099865 156271 5 (1626W) SHEATH 5FR Terumo 1 ZWL253 700947 439261 796003 5 [place] (RKU776) EMERALD Guide Cardinal 1 502-455 646080 246352 113516 5 Wire (502-455) Health SHEATH 7FR Terumo 1 TSA328 164232 950857 611507 5 [place] (QFH126) SWAN 7Fr Montoya 1 131F7P 481570 51998 780892 3 Thermodilution Lifesciences cather (131F7P) MULTIPACK JL Cardinal 1 869415 5 4.0 5Fr Health catheter MULTIPACK 3DRC Cardinal 1 188360 5 5Fr catheter Health MULTIPACK Cardinal 1 716644 5 Pigtail 5 Fr Health catheter INFLATOR Merit Merit 1 QT5151 477912 199242 467445 15 [facility] (BN6870) Chavez Chavez 1 J03710 812101 [id number] 49606 5 55059E2 PressureWire X Vascular (C30962) EXOSEAL 5Fr Cardinal 1 EX500 628939 281751 883293 10 (EX500) Health Signature Audit [place] Stage Time Signature Unsigned Intra-Procedure 07/22/2020 Deanne Garcia 10:51:41 AM RT(R) Intra-Procedure 07/22/2020 Gordo Gutierrez RN 10:52:41 AM Intra-Procedure 07/22/2020 Chase Altamirano 10:54:17 AM Oleksandr BERNAL Signatures Performing Physician : Signature : Chase Grossman MD Date : Time : Monitor : Deanne Garcia Signature : RT Date : Time : Nurse : Gordo Gutierrez RN Signature : Date : Time : [facility] [address] [place] [address]
--- NOTE | 2020-07-19 18:09 | NUR ---
RENATE SCHNEIDER RN ASSISTING PATIENT WITH BSC.
[2020-07-19 18:19] LABS: BASOPHILS 0.3 % (0-2); EOSINOPHILS 2.7 % (0-7); HEMATOCRIT 33.3 % (36.0-48.0); HEMOGLOBIN 10.1 g/dL (12-16); IMMATURE GRANULOCYTES 0.2 % (0-5); LYMPHOCYTE ABS# 1.55 10x3/uL (1.18-3.74); LYMPHOCYTES 26.3 % (15-50); MCHC 30.3 g/dL (31.0-37.0); MEAN PLATELET VOLUME 9.6 fL (7.4-10.4); MONOCYTES 5.1 % (2-11); NEUTROPHIL ABS# 3.86 10x3/uL (1.56-6.13); NEUTROPHILS 65.4 % (40-80); RBC 3.74 10x6/uL (4.00-5.40); RDW 14.8 % (11.5-14.5); WBC 5.9 10x3/uL (4.8-10.8)
[2020-07-19 18:22] LABS: PLATELET COUNT 279 10x3/uL (130-400)
[2020-07-19 18:32] LABS: CALC OSMOLALITY 284 mosm/kg (275-300); CALCIUM 8.4 mg/dL (8.5-10.1); CARBON DIOXIDE 31.2 mmol/L (21.0-32.0); CHLORIDE - SERUM 105 mmol/L (98-107); CREATININE - SERUM 1.1 mg/dL (0.6-1.3); POTASSIUM - SERUM 3.4 mmol/L (3.5-5.1); SODIUM 141 mmol/L (136-145); UREA NITROGEN 20 mg/dL (7-18); eGFR NON AFRICAN AMERICAN 52 mL/min (90-120)
[2020-07-19 18:41] LABS: GLUCOSE 117 mg/dL (74-106)
[2020-07-19 18:49] LABS: ALBUMIN 2.9 g/dL (3.4-5.0); ALKALINE PHOSPHATASE 40 U/L (30-120); ALT (SGPT) 15 U/L (10-68); BILIRUBIN - TOTAL 0.24 mg/dL (0.2-1.3); CKMB 0.6 U/L (0.0-3.6); CREATINE KINASE 38 UL (21-215); PRO BNP 2957 pg/mL (0-125); PROTEIN - SERUM 6.3 g/dL (6.4-8.2); TROPONIN-I < 0.017 ng/mL (0.000-0.060)
[2020-07-19 18:52] LABS: APTT 23.4 SECONDS (22.8-39.4); INR 1.06 (0.85-1.17); PROTIME 12.8 SECONDS (11.6-15.0)
--- NOTE | 2020-07-19 19:08 | NUR ---
REPORT GIVEN TO MILLIE ROME
[2020-07-19 19:30] VITALS: BP 178/59
[2020-07-19 23:01] VITALS: BP 160/54
[2020-07-20 02:30] VITALS: BP 163/49
[2020-07-20 06:16] LABS: BASOPHILS 0.4 % (0-2); EOSINOPHILS 3.1 % (0-7); HEMATOCRIT 33.6 % (36.0-48.0); IMMATURE GRANULOCYTES 0.2 % (0-5); LYMPHOCYTE ABS# 1.21 10x3/uL (1.18-3.74); LYMPHOCYTES 22.1 % (15-50); MCH 26.7 pg (26.0-34.0); MCHC 29.8 g/dL (31.0-37.0); MCV 89.8 fL (80.0-100.0); MEAN PLATELET VOLUME 9.6 fL (7.4-10.4); MONOCYTES 6.9 % (2-11); NEUTROPHIL ABS# 3.68 10x3/uL (1.56-6.13); NEUTROPHILS 67.3 % (40-80); PLATELET COUNT 299 10x3/uL (130-400); RBC 3.74 10x6/uL (4.00-5.40); RDW 14.9 % (11.5-14.5); WBC 5.5 10x3/uL (4.8-10.8)
[2020-07-20 07:12] LABS: ALBUMIN 2.7 g/dL (3.4-5.0); ALKALINE PHOSPHATASE 36 U/L (30-120); ALT (SGPT) 15 U/L (10-68); BILIRUBIN - TOTAL 0.28 mg/dL (0.2-1.3); CALC OSMOLALITY 289 mosm/kg (275-300); CALCIUM 8.2 mg/dL (8.5-10.1); CARBON DIOXIDE 33.2 mmol/L (21.0-32.0); CHLORIDE - SERUM 107 mmol/L (98-107); CKMB 0.5 U/L (0.0-3.6); CREATINE KINASE 32 UL (21-215); CREATININE - SERUM 1.1 mg/dL (0.6-1.3); GLUCOSE 118 mg/dL (74-106); MAGNESIUM - SERUM 2.2 mg/dL (1.8-2.4); PROTEIN - SERUM 6.2 g/dL (6.4-8.2); SODIUM 143 mmol/L (136-145); TROPONIN-I < 0.017 ng/mL (0.000-0.060); UREA NITROGEN 24 mg/dL (7-18); eGFR NON AFRICAN AMERICAN 52 mL/min (90-120)
--- NOTE | 2020-07-20 08:17 | NUR ---
PATIENT SITTING UP IN BED, EATING BREAKFAST. PATIENT ALERT AND ORIENTED X 4, RESPIRATIONS EVEN AND UNLBORED. IV SITE DRY AND INTACT, MACDONALD CATH DRAINING YELLOW URINE. NO DISTRESS NOTED. PATIENT DENIES ANY NEEDS AT THIS TIME. NO NEUROLOGICAL DEFICITS NOTED. CALL VILLARREAL IN REACH, SIDE RAILS UP X 2, BED IN LOW POSITION.
[2020-07-20 08:18] VITALS: BP 178/55
--- NOTE | 2020-07-20 13:33 | NUR ---
PATIENT ASSISTED TO BEDSIDE COMMODE AND HAD A SMALL FORMED BOWEL MOVEMENT. PATIETN MOVED TO A HOSPITAL BED AT THIS TIME FOR COMFORT. IV SITE DRY AND INTACT. MACDONALD CATHETER DRAINING CLEAR, YELLOW URINE. CALL VILLARREAL IN REACH, SIDE RAILS UP X 2, BED IN LOW POSITION AND LOCKED.
[2020-07-20 17:14] VITALS: BP 181/53
--- NOTE | 2020-07-20 19:14 | NUR ---
PT ARRIVED ON UNIT VIA WHEELCHAIR, ESCORTED BY ER NURSE AND SPOUSE. POSITIONED IN BED FOR COMFORT. MACDONALD CATHETER DRAINING TO GRAVITY WITH YELLOW URINE IN COLLECTION BAG. IV TO LEFT AC PATENT. RE-STARTED BUMEX DRIP AT 2.5 ML/HR.
--- NOTE | 2020-07-20 19:35 | NUR ---
PLACED TELEMETRY PER ORDER. PT READING 54 SB W/ BBB AT THIS ASSESSMENT.
[2020-07-20 20:00] VITALS: BP 176/52
--- NOTE | 2020-07-20 20:15 | NUR ---
ASSISTED PT TO HAVE BM ON BEDPAN. POSITIONED FOR COMFORT.
--- NOTE | 2020-07-20 21:36 | NUR ---
HS MEDICATIONS GIVEN. FSBS 170 THIS CHECK REQUIRING COVERAGE WITH 4 UNITS INSULIN PER SLIDING SCALE.
--- NOTE | 2020-07-20 21:45 | NUR ---
HS SNACK GIVEN PER DIET ORDERS: CARINA CRACKERS, PEANUT BUTTER, AND 2% MILK. WILL CONTINUE TO MONITOR FOR NEEDS.
--- NOTE | 2020-07-20 23:30 | NUR ---
IV GETTING RED. REMOVED WITH CATHETER TIP INTACT. IV RE-SITED BY LATRICIA GRAY TO LEFT AC USING 22 GUAGE CATHETER. BUMEX DRIP RE-STARTED.
[2020-07-21] VITALS (7 sets, daily range): BP systolic 101–181; BP diastolic 47–70; BMI 47.3
--- NOTE | 2020-07-21 01:19 | NUR ---
ADMISSION ASSESSMENT, HISTORY, AND CARE PLANS COMPLETE.
[2020-07-21 05:32] LABS: BASOPHILS 0.2 % (0-2); EOSINOPHILS 3.2 % (0-7); HEMATOCRIT 34.9 % (36.0-48.0); HEMOGLOBIN 10.6 g/dL (12-16); IMMATURE GRANULOCYTES 0.2 % (0-5); LYMPHOCYTE ABS# 1.48 10x3/uL (1.18-3.74); MCHC 30.4 g/dL (31.0-37.0); MEAN PLATELET VOLUME 9.7 fL (7.4-10.4); MONOCYTES 8.6 % (2-11); NEUTROPHIL ABS# 3.53 10x3/uL (1.56-6.13); NEUTROPHILS 61.8 % (40-80); PLATELET COUNT 333 10x3/uL (130-400); RBC 3.92 10x6/uL (4.00-5.40); RDW 14.8 % (11.5-14.5); WBC 5.7 10x3/uL (4.8-10.8)
[2020-07-21 05:43] LABS: ANION GAP 6.7 mmol/L (8-16); CALCIUM 8.6 mg/dL (8.5-10.1); CARBON DIOXIDE 34.4 mmol/L (21.0-32.0); CREATININE - SERUM 1.3 mg/dL (0.6-1.3); POTASSIUM - SERUM 4.1 mmol/L (3.5-5.1)
--- NOTE | 2020-07-21 10:41 | NUR ---
BED LOW POSITION. MOVED UP IN BED. BED LOW POSITION, CALL LIGHT IN REACH. FREE FROM SIGNS OF DISTRESS. WILL CONTINUE TO MONITOR.
--- NOTE | 2020-07-21 11:01 | HP ---
PATIENT: MONICO CHAPMAN MEDICAL RECORD: [id number] ACCOUNT: [id number] LOCATION:D.MS [id number] : 48 ADMISSION DATE: 07/19/20 PCP: No PCP HISTORY AND PHYSICAL EXAMINATION ADMITTING PHYSICIAN: Dr. Wily West. CHIEF COMPLAINT: Shortness of breath and 10-pound weight gain. HISTORY OF PRESENT ILLNESS: The patient is a 69-year-old female with history of metabolic syndrome, coronary artery disease. She had a PTCA late last year and was readmitted 05/2020 for similar symptoms with shortness of breath and chest pain. At that time, her cardiac catheterization was repeated showing her stents patent. She was treated for congestive heart failure and Dr. West had recommended placement in halfway for strengthening and treatment for congestive heart failure, but she deferred. She was COVID negative on testing and then had pulmonary consult and was treated for pneumonia as well. The patient states that she has just not gotten over her May admission. She saw DINORA Sotomayor at the cardiology clinic two days ago and she resumed her metaxalone. She said she had just gotten progressively short of breath, could not lay down and came in. She felt tight in her chest, but not severe chest pain. PAST MEDICAL HISTORY: Poorly controlled type 2 diabetes mellitus, essential hypertension, coronary artery disease status post recent PTCA, chronic kidney disease stage III, hyperlipidemia, morbid obesity, anemia of chronic disease, osteoarthritis, chronic kidney disease, GERD, peripheral neuropathy diabetic type. SOCIAL HISTORY: Lifelong nonsmoker, nondrinker. She is . 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 She is and her is in excellent health she states. CURRENT MEDICATIONS: Plavix 75 mg a day, paroxetine 20 mg a day, vitamin D 50,000 units weekly, lisinopril 20 mg b.i.d., pantoprazole 40 mg daily, atorvastatin 10 mg at bedtime, gabapentin 300 mg t.i.d., isosorbide mononitrate ER 30 mg p.o. daily, metaxalone 2.5 mg p.o. daily, doxazosin 2 mg b.i.d., metformin 500 mg once daily, Cartia XT 360 mg p.o. daily, fenofibrate 160 mg p.o. daily, NitroQuick 0.4 sublingual p.r.n. chest pain, aspirin 81 mg daily, Bumex 2 mg b.i.d., Amaryl 2 mg daily. ALLERGIES: CODEINE. REVIEW OF SYSTEMS: GENERAL: Fatigue for the last 2 months. She has had weight gain 10 pounds over the last 3 days. No fever. HEENT: No recent visual change, sinus congestion or sore throat. RESPIRATORY: Chronic dyspnea at rest and with exertion. No cough or sputum production. CARDIOVASCULAR: Mild chest tightness due to shortness of breath. She thinks no true angina. She has had increasing peripheral edema as mentioned. GASTROINTESTINAL: No nausea, vomiting, change in stools, or blood per rectum. GENITOURINARY: Mild stress incontinence. GYNECOLOGIC: No vaginal bleeding. ENDOCRINE: Denies polyuria, polydipsia, heat or cold intolerance. HISTORY AND PHYSICAL [id number] NEIGHBORS,MON[place] WHITE PHYSICAL EXAMINATION: VITAL SIGNS: Weight 258 pounds, height 5 feet 2 inches, heart rate is 66 and regular, respirations 18, blood pressure 160/54 with a sat of 94% on room air. GENERAL: The patient is alert and oriented and chronically ill-appearing. HEENT: Her eyes are clear. Oropharynx shows many teeth are missing. Poor dentition. Lips show mild acrocyanosis. NECK: Supple, without bruits or JVD. CHEST: She has crackles in the bases bilaterally. No wheeze. HEART: Regular rate and rhythm. ABDOMEN: Morbidly obese, soft, nontender throughout. Bowel sounds are active. GENITOURINARY: Deferred. EXTREMITIES: She has 2+ bipedal and pretibial edema to the knees. INTEGUMENT: No petechiae appreciated. LABORATORY DATA: Her white count is 5900, H&H is 10 and 33.3, platelet count is 279,000. Chemistry; potassium 3.4, which is low. BUN and creatinine are 20 and 1.1, glucose 117. Liver functions are normal. ProBNP is 2957. ASSESSMENT: Diastolic congestive heart failure, acute on chronic; coronary artery disease; morbid obesity; metabolic syndrome; diuretic-induced hypokalemia; gastroesophageal reflux disease; diabetic peripheral neuropathy; hyperlipidemia. PLAN: We will admit, place on Bumex drip. Review previous echo. Replace potassium. Further workup pending clinical course. TRANSINT:[id number] Voice Confirmation ID: [id number] DOCUMENT ID: [id number] TOLU MELGOZA MD at 1101 CC: [id number] DICTATION DATE: 07/20/20 0850 3D SPECIALIST: 07/20/20 1305 ADM IN [place] [id number] [place] [address]
--- NOTE | 2020-07-21 12:42 | NUR ---
IN BED EATING LUNCH. DENIES NEEDS AT THIS TIME. BED LOW POSITION, CALL LIGHT IN REACH. WILL CONTINUE TO MONITOR
--- NOTE | 2020-07-21 19:00 | NUR ---
BEDSIDE REPORT RECEIVED AND CARE OF PT ASSUMED. PT LYING IN LOW BRODERICK'S POSITION WATCHING TV. IV TO LEFT AC PATENT WITH BUMEX INFUSING AT 2.5 ML/HR. O2 IN USE VIA NC AT 3L. TELEMETRY IN PLACE AND READING SR W/ BBB AT THIS ASSESSMENT. WILL MONITOR FOR NEEDS.
--- NOTE | 2020-07-21 21:30 | NUR ---
HS MEDICATIONS GIVEN. FSBS 160 REQUIRING COVERAGE WITH 4 UNITS OF INSULIN PER SLIDING SCALE.
--- NOTE | 2020-07-21 21:45 | NUR ---
GAVE HS SNACK OF CARINA CRACKERS, PEANUT BUTTER, AND MILK. WILL CONTINUE TO MONITOR FOR NEEDS.
[2020-07-22] VITALS: BP 186/65
[2020-07-22 04:00] VITALS: BP 141/46
[2020-07-22 07:45] LABS: ANION GAP 3.2 mmol/L (8-16); CALCIUM 8.7 mg/dL (8.5-10.1); CARBON DIOXIDE 39.2 mmol/L (21.0-32.0); CREATININE - SERUM 1.5 mg/dL (0.6-1.3); POTASSIUM - SERUM 4.4 mmol/L (3.5-5.1)
[2020-07-22 08:00] VITALS: BP 167/53
--- NOTE | 2020-07-22 09:35 | NUR ---
PATIENT HIPACLEAN BATH COMPLETE. PREOPED ORDERED. CONSENTS SIGNED. ESCORTED TO ANIMAL ANATOMIST BY CATH NURSES.
--- NOTE | 2020-07-22 11:45 | NUR ---
PATIENT BACK FROM ROLL TENSION TESTER. VS STABLE. DRESSING TO RIGHT GROIN CDI. PEDAL PULSE PALPABLE AND WNL. NO COMPLAINTS. CALL LIGHT WITHIN REACH.
[2020-07-22 12:00] VITALS: BP 148/57; BP 156/60
--- NOTE | 2020-07-22 12:30 | NUR ---
PATIENT IN BED WITH NO COMPLAINTS. EATING LUNCH AT THIS TIME. PEDAL PLUSE WNL. RIGHT GROIN DRESSING INTACT. NO BRUISING OR BLEEDING. CALL LIGHT WITHIN REACH.
--- NOTE | 2020-07-22 14:11 | NUR ---
CALLED DR. EUCEDA FOR PATIENT TO GET HEADACHE MEDS. WAITING ON A CALL BACK AT THIS TIME. SPOKE WITH DR. EUCEDA'S NURSE SHO.
--- NOTE | 2020-07-22 14:50 | NUR ---
PATIENT IN BED WITH IV INTACT. NO COMPLAINTS OR SIGNS OF DISTRESS. PEDAL PULSE WNL. RIGHT GROIN DRESSING CDI. CALL LIGHT WITHIN REACH.
[2020-07-22 15:00] VITALS: BP 150/63
--- NOTE | 2020-07-22 16:45 | NUR ---
PATIENT SITTING UP IN BED WITH NO COMPLAINTS OR SIGNS OF DISTRESS. DRESSING INTACT TO RIGHT GROIN. CALL LIGHT WITHIN REACH.
[2020-07-22 21:36] VITALS: BP 152/77
[2020-07-23] VITALS (8 sets, daily range): BP systolic 150–197; BP diastolic 53–99; Ht 157.5 cm; Wt 117.0 kg
[2020-07-23 06:11] LABS: ANION GAP 7.3 mmol/L (8-16); CALCIUM 8.6 mg/dL (8.5-10.1); CARBON DIOXIDE 38.1 mmol/L (21.0-32.0); CREATININE - SERUM 1.7 mg/dL (0.6-1.3); POTASSIUM - SERUM 4.4 mmol/L (3.5-5.1)
[2020-07-23 07:10] LABS: BASOPHILS 0.2 % (0-2); EOSINOPHILS 3.8 % (0-7); HEMATOCRIT 35.3 % (36.0-48.0); HEMOGLOBIN 10.6 g/dL (12-16); IMMATURE GRANULOCYTES 0.3 % (0-5); LYMPHOCYTE ABS# 1.68 10x3/uL (1.18-3.74); LYMPHOCYTES 25.7 % (15-50); MCV 90.1 fL (80.0-100.0); MEAN PLATELET VOLUME 9.7 fL (7.4-10.4); MONOCYTES 7.8 % (2-11); NEUTROPHIL ABS# 4.06 10x3/uL (1.56-6.13); NEUTROPHILS 62.2 % (40-80); PLATELET COUNT 311 10x3/uL (130-400); RBC 3.92 10x6/uL (4.00-5.40); RDW 14.7 % (11.5-14.5); WBC 6.5 10x3/uL (4.8-10.8)
--- NOTE | 2020-07-23 09:08 | NUR ---
ALERT AND ORIENTED. ASSESSMENT COMPLETE. REQUESTED AND GIVEN ICE WATER. DENIES FURTHER NEEDS. BED LOW. CALL VILLARREAL AND PERSONAL ITEMS IN REACH. WILL CONTINUE TO MONITOR.
--- NOTE | 2020-07-23 13:41 | OP ---
PATIENT NAME: CAMMY PAREDES MEDICAL RECORD: [id number] :48 LOCATION:D.MS [id number] ADMISSION DATE:07/21/20 SURGEON: TAMMY TAYLOR MD DATE OF OPERATION: 07/22/2020 PROCEDURE: Left heart catheterization plus IFR wire plus right heart catheterization with adenosine infusion on Cammy Paredes. Left heart catheterization, selective coronary angiography, right femoral artery approach. CATHETERS: A 5-Tuvaluan sheath, 5/4 left and right Camron, 5/4 pig. The procedure was well tolerated. The patient returned to [facility]. Sheath removed. ExoSeal device placed. FINDINGS:. Left ventriculography in 30-degree BOWIE view shows LV mildly globally hypo, EF lower limits of normal to mildly reduced 45% to 50%. CORONARY ANATOMY: LEFT MAIN: Left main is free of disease. LAD. Previously placed stent is widely patent. No evidence of restenosis. CIRCUMFLEX: Free of disease. Previously placed stent is widely patent. RIGHT CORONARY ARTERY: Has a questionable stenosis in its mid portion; however, IFR wire was normal at 0.94. RIGHT HEART CATHETERIZATION: Right heart catheterization was performed via the right femoral vein. A [place]-Paulette catheter and 7-Tuvaluan sheath findings as follows: The wedge pressure was 30. PA pressures were mean of 50/35. A continuous infusion of adenosine at 50, 100 and finally 200 mcg each for 2 minutes showed no lowering of PA pressures. RV pressure was 50/12. RA pressure was 15. IMPRESSION: Elevated right heart pressures with no change after adenosine infusion. Medical managements of volume overload was recommended. I will switch from Cardizem to Aldactone, could consider addition of Entresto depending on response to the above. TRANSINT:[id number] Voice Confirmation ID: [id number] DOCUMENT ID: [id number] TAMMY TAYLOR MD at 1349 CC: [id number] DICTATION DATE: 07/22/20 1059 SENIOR FINANCIAL: 07/22/20 1308 ADM IN [facility] [address] [id number]
--- NOTE | 2020-07-23 20:40 | NUR ---
REPORT RECEIVED, WILL CONT POC. PT A&O, UP IN BED WATCHING TV. NO S/S OF DISTRESS OBSERVED. RR EVEN & UNLABORED ON RA. R FEMORAL AND PEDAL PULSES PRESENT. CAP REFILL <2 SECS. PT DENIES ANY PAIN OR NUMBNESS TO RIGHT LOWER EXTREMITY. PT DOES REPORT TINGLING BUT HAS HX OF NEUROPATHY AND STATES THE TINGLING IS UNCHANGED FROM BEFORE HEART CATH. BED LOCKED AND LOWERED, CL IN REACH. ASSESSMENT COMPLETED AT THIS TIME. WILL CONT TO MONITOR.
[2020-07-24] VITALS: BP 166/61
[2020-07-24 04:00] VITALS: BP 154/53
[2020-07-24 06:34] VITALS: BP 154/53
[2020-07-24 07:03] VITALS: BP 183/73
--- NOTE | 2020-07-24 08:19 | MORECARE ---
CASE MANAGEMENT DISCHARGE SUMMARY PATIENT: MONICO CHAPMAN UNIT: [id number] ADM DATE: 07/21/20 AGE: 69 : 49 SEX: F ROOM/BED: D.2228 AUTHOR: REBECCA FRANCIS PHYSICIAN: REFERRING PHYSICIAN: TIMOTHY EUCEDA MD DATE OF SERVICE: 07/24/20 Discharge Plan Patient Name: MONICO CHAPMAN [facility] [facility] 1950 Planned Disposition: Anticipated Discharge Date: Discharge Date: Expected LOS: Initial Reviewer: [email or web address] Initial Review Date: 07/19/2020 Generated: 07/24/20 9:18 am Coverage Notice Reviewer: [id number] Kristen Beasley Notice Issued Date-Time: 07/20/2020 13:55 Notice Type: Medicare Outpatient Observation Notice Notice Delivered To: Patient Relationship to Patient: Self Pump Operator Name: Delivery Method: HAND - Hand Delivered Rekha Days: Prior Verbal Notification: Recipient Understood Notice: Recipient Signature: Yes Med Rec Note Co-signed by Attending: Coverage Notice Comment: MACDONALD explained, signed, given, copy placed in MR Patient Name: MONICO CHAPMAN Page [phone] at 0819 All edits/amendments must be made on the electronic document DICTATION DATE: 07/24/20818 MANUFACTURING MAINTENANCE MANAGER: JERO 07/24/20818 RPT#: [id number] DC DATE: STATUS: ADM IN [facility] [address] [place] [address] END OF REPORT
[2020-07-24] MEDS ORDERED: ALDACTONE50 MG PO (08:26)
--- NOTE | 2020-07-24 08:40 | MORECARE ---
CASE MANAGEMENT DISCHARGE SUMMARY PATIENT: MONICO CHAPMAN UNIT: [id number] ADM DATE: 07/21/20 AGE: 69 : 49 SEX: F ROOM/BED: D.2228 AUTHOR: REBECCA FRANCIS PHYSICIAN: REFERRING PHYSICIAN: TIMOTHY EUCEDA MD DATE OF SERVICE: 07/24/20 Discharge Plan Patient Name: MONICO CHAPMAN [facility] [facility] 1950 Planned Disposition: Anticipated Discharge Date: Discharge Date: Expected LOS: Initial Reviewer: [email or web address] Initial Review Date: 07/19/2020 Generated: 07/24/20 9:39 am DCPIA - Discharge Planning Initial Assessment Updated by [email or web address]: Lexi Ferreira on 07/24/20 8:32 am * Is the patient Alert and Oriented? Yes * PCP OK * Pharmacy [facility] * Preadmission Environment Home with Family * ADLs Independent * Other Equipment CANE, O2, WALKER * Community resources currently utilized Home Health * Please name any agencies selected above. [facility] * Additional services required to return to the preadmission environment? No * Can the patient safely return to the preadmission environment? Yes * Has this patient been hospitalized within the prior 30 days at any hospital? Yes Coverage Notice Reviewer: [email or web address] Kristen Beasley Notice Issued Date-Time: 07/20/2020 13:55 Notice Type: Medicare Outpatient Observation Notice Notice Delivered To: Patient Relationship to Patient: Self Rn Clinician Name: Delivery Method: HAND - Hand Delivered Rekha Days: Prior Verbal Notification: Recipient Understood Notice: Recipient Signature: Yes Med Rec Note Co-signed by Attending: Coverage Notice Comment: TORRES explained, signed, given, copy placed in MR Last DP export: 07/24/20 7:19 am Patient Name: MONICO CHAPMAN Page [phone] at 0840 All edits/amendments must be made on the electronic document DICTATION DATE: 07/24/20838 NEWSPAPER OR PERIODICAL EDITOR: DM 07/24/20838 RPT#: [id number] DC DATE: STATUS: ADM IN [facility] [address] [place] [address] END OF REPORT
--- NOTE | 2020-07-24 09:15 | MORECARE ---
CASE MANAGEMENT DISCHARGE SUMMARY PATIENT: MONICO CHAPMAN UNIT: [id number] ADM DATE: 07/21/20 AGE: 69 : 49 SEX: F ROOM/BED: D.2228 AUTHOR: REBECCA FRANCIS PHYSICIAN: REFERRING PHYSICIAN: TIMOTHY EUCEDA MD DATE OF SERVICE: 07/24/20 Discharge Plan Patient Name: MONICO CHAPMAN Facility: [facility]:[place] : 1950 Planned Disposition: Anticipated Discharge Date: Discharge Date: Expected LOS: Initial Reviewer: [id number] Initial Review Date: 07/19/2020 Generated: 07/24/20 10:14 am Comments DCP- Discharge Planning Updated by [email or web address]: Lexi Ferreira on 07/24/20 8:[address] Patient Name: MONICO CHAPMAN Admission Status: ER Accout number: [id number] Admission Date: 07-21-2020 : 1950 Admission Diagnosis:HYP HRT CHR KDNY DIS W HRT FAIL AND STG 1-4/UNSP CHR Attending: TIMOTHY EUCEDA Current LOS: 3 Anticipated DC Date: Planned Disposition: Primary Insurance: [facility] MEDICARE SOLUTIONS Discharge Planning Comments: CM met with patient at bedside after obtaining verbal consent. CM discussed availability / needs of home health, REHAB and medical equipment. PATIENT plans to [facility]. States has oxygen with [facility], states portable is empty. I will call them to bring her oxygen to get home. IMM signed, cm to follow and assist as needed. Hoop Machine Operator: Lexi Ferreira DCPIA - Discharge Planning Initial Assessment Updated by [email or web address]: Lexi Ferreira on 07/24/20 8:32 am * Is the patient Alert and Oriented? Yes * PCP OK * Pharmacy [facility] * Preadmission Environment Home with Family * ADLs Independent * Other Equipment CANE, O2, WALKER * Community resources currently utilized Home Health * Please name any agencies selected above. [facility] * Additional services required to return to the preadmission environment? No * Can the patient safely return to the preadmission environment? Yes * Has this patient been hospitalized within the prior 30 days at any hospital? Yes External Providers External Provider: [facility] Next Contact Date: Service Request Date: Service Type: Resolution: Reviewer: Comments: External Provider: [facility] Next Contact Date: Service Request Date: Service Type: Resolution: Reviewer: Comments: Coverage Notice Reviewer: [email or web address] Kristen Beasley Notice Issued Date-Time: 07/20/2020 13:55 Notice Type: Medicare Outpatient Observation Notice Notice Delivered To: Patient Relationship to Patient: Self Licensed Practical Nurse Name: Delivery Method: HAND - Hand Delivered Rekha Days: Prior Verbal Notification: Recipient Understood Notice: Recipient Signature: Yes Med Rec Note Co-signed by Attending: Coverage Notice Comment: TORRES explained, signed, given, copy placed in MR Reviewer: [id number] Kristen Ferreira Notice Issued Date-Time: 07/24/2020 9:05 Notice Type: IM Discharge Notice Notice Delivered To: Relationship to Patient: Licensed Practical Nurse Name: Delivery Method: - Rekha Days: Prior Verbal Notification: Recipient Understood Notice: Recipient Signature: Med Rec Note Co-signed by Attending: Coverage Notice Comment: Reviewer: [email or web address] Kristen Ferreira Notice Issued Date-Time: 07/24/2020 9:13 Notice Type: Patient Choice Letter Notice Delivered To: Relationship to Patient: Licensed Practical Nurse Name: Delivery Method: - Rekha Days: Prior Verbal Notification: Recipient Understood Notice: Recipient Signature: Med Rec Note Co-signed by Attending: Coverage Notice Comment: HUMAIRABrian GILMAN Last DP export: 07/24/20 7:40 am Patient Name: MONICO CHAPMAN Page [phone] at 0915 All edits/amendments must be made on the electronic document DICTATION DATE: 07/24/20913 SALES PRODUCER: JERO 07/24/20913 RPT#: [id number] DC DATE: STATUS: ADM IN [facility] [address] [place] [address] END OF REPORT
--- NOTE | 2020-07-24 11:42 | NUR ---
STUDENT NURSE PANDA D/C MACDONALD CATH, WITHDREW 8ML FROM MACDONALD BALLOON. D/C LEFT AC IV, TIP INTACT. DISCHARGE INSTRUCTIONS GIVEN VERBALLY AND HANDOUTS PROVIDED. PATIENT RIDE CALLED. AWAITING ARRIVAL.
--- NOTE | 2020-07-24 12:42 | NUR ---
TAKEN DOWN TO ED ENTRANCE VIA WHEELCHAIR. REMAINS FREE FROM INJURY.
--- NOTE | 2020-07-25 08:39 | MORECARE ---
CASE MANAGEMENT DISCHARGE SUMMARY PATIENT: MONICO CHAPMAN UNIT: [id number] ADM DATE: 07/21/20 AGE: 69 : 49 SEX: F ROOM/BED: D.2228 AUTHOR: REBECCA FRANCIS PHYSICIAN: REFERRING PHYSICIAN: TIMOTHY EUCEDA MD DATE OF SERVICE: 07/25/20 Discharge Plan Patient Name: MONICO CHAPMAN Facility: [facility]:[place] : 1950 Planned Disposition: Anticipated Discharge Date: Discharge Date: 07/24/2020 Expected LOS: Initial Reviewer: [email or web address] Initial Review Date: 07/19/2020 Generated: 07/25/20 9:38 am Comments DCP- Discharge Planning Updated by [id number]: Lexi Ferreira on 07/24/20 8:[address] Patient Name: MONICO CHAPMAN Admission Status: ER Accout number: [id number] Admission Date: 07-21-2020 : 1950 Admission Diagnosis:HYP HRT CHR KDNY DIS W HRT FAIL AND STG 1-4/UNSP CHR Attending: TIMOTHY EUCEDA Current LOS: 3 Anticipated DC Date: Planned Disposition: Primary Insurance: [facility] MEDICARE SOLUTIONS Discharge Planning Comments: CM met with patient at bedside after obtaining verbal consent. CM discussed availability / needs of home health, REHAB and medical equipment. PATIENT plans to resume [facility]. States has oxygen with [facility], states portable is empty. I will call them to bring her oxygen to get home. IMM signed, cm to follow and assist as needed. Social Sciences Professor: Lexi Ferreira DCPIA - Discharge Planning Initial Assessment Updated by [id number]: Lexi Ferreira on 07/24/20 8:32 am * Is the patient Alert and Oriented? Yes * PCP OK * Pharmacy [facility] * Preadmission Environment Home with Family * ADLs Independent * Other Equipment CANE, O2, WALKER * Community resources currently utilized Home Health * Please name any agencies selected above. [facility] * Additional services required to return to the preadmission environment? No * Can the patient safely return to the preadmission environment? Yes * Has this patient been hospitalized within the prior 30 days at any hospital? Yes Coverage Notice Reviewer: [id number] Kristen Beasley Notice Issued Date-Time: 07/20/2020 13:55 Notice Type: Medicare Outpatient Observation Notice Notice Delivered To: Patient Relationship to Patient: Self Park Worker Supervisor Name: Delivery Method: HAND - Hand Delivered Rekha Days: Prior Verbal Notification: Recipient Understood Notice: Recipient Signature: Yes Med Rec Note Co-signed by Attending: Coverage Notice Comment: MACDONALD explained, signed, given, copy placed in MR Reviewer: [id number] Ferreira Notice Issued Date-Time: 07/24/2020 9:05 Notice Type: IM Discharge Notice Notice Delivered To: Relationship to Patient: Park Worker Supervisor Name: Delivery Method: - Rekha Days: Prior Verbal Notification: Recipient Understood Notice: Recipient Signature: Med Rec Note Co-signed by Attending: Coverage Notice Comment: Reviewer: [email or web address] Ferreira Notice Issued Date-Time: 07/24/2020 9:13 Notice Type: Patient Choice Letter Notice Delivered To: Relationship to Patient: Park Worker Supervisor Name: Delivery Method: - Rekha Days: Prior Verbal Notification: Recipient Understood Notice: Recipient Signature: Med Rec Note Co-signed by Attending: Coverage Notice Comment: KVNG Jacobson DP export: 07/24/20 8:15 am Patient Name: MONICO CHAPMAN Page [phone] at 0839 All edits/amendments must be made on the electronic document DICTATION DATE: 07/25/20837 SEED PELLETER: JERO 07/25/20837 RPT#: [id number] DC DATE:07/24/20 STATUS: DIS IN [place] [id number] [place] [address] END OF REPORT
== END 2020-07-24 13:15 | disposition home health service (06) | DRG 286 ==
LOC: D.ER 17:23 → OBSVTIME 19:37 → D.EDHOLD 19:37 → D.MS 07-20 17:36
PROVIDERS: Family Medicine; Internal Medicine Interventional Cardiology; ADMIT Family Medicine; ATTEND Family Medicine
PROC: 4A023N7 Measurement of Cardiac Sampling and Pressure, Left Heart, Percutaneous Approach (ICD-10-PCS; 2020-07-22)
PROC: B2111ZZ Fluoroscopy of Multiple Coronary Arteries using Low Osmolar Contrast (ICD-10-PCS; principal; 2020-07-22 09:00)
PROC: B2161ZZ Fluoroscopy of Right and Left Heart using Low Osmolar Contrast (ICD-10-PCS; 2020-07-22 09:00)
DX: I13.0 Hypertensive heart and chronic kidney disease with heart failure and stage 1 through stage 4 chronic kidney disease, or unspecified chronic kidney disease (principal); I50.33 Acute on chronic diastolic (congestive) heart failure; Z68.42 Body mass index [BMI] 45.0-49.9, adult; J81.1 Chronic pulmonary edema; N18.30 Chronic kidney disease, stage 3 unspecified; E11.22 Type 2 diabetes mellitus with diabetic chronic kidney disease; I25.10 Atherosclerotic heart disease of native coronary artery without angina pectoris; E78.5 Hyperlipidemia, unspecified; D63.1 Anemia in chronic kidney disease; K21.9 Gastro-esophageal reflux disease without esophagitis; E88.81 Metabolic syndrome and other insulin resistance; E66.01 Morbid (severe) obesity due to excess calories; E87.6 Hypokalemia; R09.02 Hypoxemia

== ENCOUNTER → 2020-07-26 18:23 | Outpatient (CLI) | payer MEDICARE ==
[2020-07-23 13:38] VITALS: BMI 47.2
[~2020-07-26 18:23] MED LIST changes: +ALDACTONE50 MG PO
[2020-07-26 19:33] LABS: ANION GAP 12.7 mmol/L (8-16); CALCIUM 8.4 mg/dL (8.5-10.1); CREATININE - SERUM 3.2 mg/dL (0.6-1.3); POTASSIUM - SERUM 5.7 mmol/L (3.5-5.1)
== END | disposition home or self-care (01) ==
LOC: D.LABREF 18:23
PROVIDERS: ATTEND Family Medicine
DX: J18.9 Pneumonia, unspecified organism (principal); I50.32 Chronic diastolic (congestive) heart failure; N18.30 Chronic kidney disease, stage 3 unspecified; I13.0 Hypertensive heart and chronic kidney disease with heart failure and stage 1 through stage 4 chronic kidney disease, or unspecified chronic kidney disease

== ENCOUNTER → 2020-08-08 11:35 | Outpatient (CLI) | payer MEDICARE ==
[2020-07-23 13:38] VITALS: BMI 47.2
[2020-08-08 11:57] LABS: ANION GAP 11.2 mmol/L (8-16); CALCIUM 8.7 mg/dL (8.5-10.1); CARBON DIOXIDE 29.2 mmol/L (21.0-32.0); CREATININE - SERUM 2.4 mg/dL (0.6-1.3); POTASSIUM - SERUM 4.4 mmol/L (3.5-5.1)
== END | disposition home or self-care (01) ==
LOC: D.LABREF 11:35
PROVIDERS: ATTEND Family Medicine
DX: I50.9 Heart failure, unspecified (principal); R35.8 Other polyuria